=== PATIENT | female | born 1980 | race Caucasian/White ===

== ENCOUNTER 2023-09-17 15:03 | Outpatient (AMB) | payer OTHER, SELFPAY ==
--- NOTE | 2023-09-17 15:06 | MHC.PC.OV ---
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 Had just finished her prescribed antibiotics yesterday. Anxiety/Depression -Not currently taking any meds. -Does not currently have a therapist Diabetes PMHx: Depression/Anxiety, opiod abuse, Bipolar disorder SurgHx: FHx: SocHx: PFSH Medical History (Updated 09/17/23 @ 16:05 by Rik Shaikh) Depression Anxiety COPD (chronic obstructive pulmonary disease) Surgical History (Updated 09/17/23 @ 15:17 by Roxann Rain CMA) S/P hernia surgery H/O tubal ligation Family History (Updated 09/17/23 @ 15:21 by Roxann Rain CMA) Mother Asthma High blood pressure High cholesterol Diabetes Cervical cancer Cardiovascular disease Father Asthma High blood pressure High cholesterol Diabetes Alcoholism Cardiovascular disease Maternal Grandmother Asthma Alcoholism Cardiovascular disease Diabetes High cholesterol High blood pressure Social History Housing: House Patient Tobacco Use Status: Current everyday Tobacco user Cigarettes Per Day: 12 service: No Current occupational status: disabled Cognitive needs: No Hearing needs: No Vision needs: Yes (Patient wears glasses) Questionnaire PHQ-9 Over the last 2 weeks, how often have you been bothered by any of the following problems? 1. Little interest or pleasure in doing things: nearly every day 2. Feeling down, depressed, or hopeless: more than half the days 3. Trouble falling or staying asleep, or sleeping too much: nearly every day 4. Feeling tired or having little energy: nearly every day 5. Poor appetite or overeating: several days 6. Feeling bad about yourself - or that you are a failure or have let yourself or your family down: nearly every day 7. Trouble concentrating on things, such as reading the newspaper or watching television: nearly every day 8. Moving or speaking so slowly that other people could have noticed. Or the opposite - being so fidgety or restless that you have been moving around a lot more than usual: nearly every day 9. Thoughts that you would be better off or of hurting yourself in some way: not at all Total score: 21 Depression Screening Interpretation: Positive Depression Screening Done: Yes 73740 - PHQ-9 Billing: Yes Source: Developed by Drs. Jian Smith, Lucinda Del Rio, Rahul Leung and colleagues, with an educational ju from [employer]. Thrive Questionnaire Date Thrive assessed: 09/17/23 I am a: Patient What is your living situation today?: I have a steady place to live Within the past 12 months, did the food you bought not last and you didn't have the money to get more?: Never true Within the past 12 months, did you worry whether your food would run out before you got money to buy more?: Never true Do you have trouble paying for medicines?: No Do you have trouble getting transportation to medical appointments?: No Do you have trouble paying your heating and electricity bill?: No Do you have trouble taking care of your child, family member or friend?: No Do you have trouble with day-to-day activities such as bathing, preparing meals, shopping, managing finances, etc.?: Yes Are you currently unemployed and looking for a job?: No Are you interested in more education?: No THRIVE Score: 0 KRYSTA-7 AMB Questionnaire KRYSTA-7 Date KRYSTA - 7 assessed: 09/17/23 Feeling nervous, anxious, or on edge: 3 = Nearly every day Not being able to stop or control worryin = Nearly every day Worrying too much about different things: 3 = Nearly every day Trouble relaxin = Nearly every day Being so restless that it is hard to sit still: 3 = Nearly every day Becoming easily annoyed or irritable: 3 = Nearly every day Feeling afraid as if something awful might happen: 3 = Nearly every day Total KRYSTA-7 score (0-4 normal; 5-9 mild; 10-14 moderate; 15-21 severe): 21 Source: Developed by Drs. Jian Smith, Lucinda Del Rio, Rahul Leung and colleagues, with an educational ju from [employer]. KRYSTA-7 Assessment Billing KRYSTA-7 Assessment Tool: KRYSTA-7 Assessment 18242 Review of Systems Const Denies chills, Denies fatigue, Denies fever(s), Denies headache(s) and Denies weakness ENT Denies dizziness and Denies headache(s) Card Denies dyspnea Resp Denies cough, Denies dyspnea, Denies wheezing and Denies other (shortness of breath) Musc Denies numbness and Denies tingling Neuro Denies dizziness, Denies headache(s), Denies numbness, Denies tingling and Denies weakness Psych Denies anxiety and Denies depression Endo Denies fatigue Aller/Immun Denies wheezing Physical exam (Primary Care) Vital Signs: Last Vital Signs Pulse 96 09/17/23 15:09 BP 138/80 09/17/23 15:09 Pulse Ox 94 09/17/23 15:09 Oxygen Delivery Method Room Air 09/17/23 15:09 BMI result Body Mass Index 55.2 Tobacco/Smoking Status: Tobacco use Status Tobacco use date assessed 09/17/23 09/17/23 15:25 Patient Tobacco Use Status Current everyday Tobacco 09/17/23 15:25 PHQ-9: PHQ-9 Score PHQ-9: Total score 21 09/17/23 15:52 Depression Screening Interpretation: Positive Thrive Assessment: Date of Thrive Assessment Date Thrive assessed 09/17/23 09/17/23 15:25 Const General: well developed; No acute distress Nutritional Appearance: obese morbidly obese Orientation/consciousness: patient oriented x3 HENMT Head: Yes normocephalic and Yes atraumatic Eyes General: appearance normal, both eyes and all related structures Pupils: Equal, round and reactive pupils present EOM: EOMs intact bilaterally Resp Effort & Inspection: normal respiratory effort Skin Other: 3cm in diameter infected wound on the back of her R leg Neuro General: patient oriented x3 and gait normal Cranial nerves: Yes Equal, round and reactive pupils present Psych Affect: normal affect Results AMB Hemoglobin A1c AMB Hemoglobin A1c 9.6 % Last Edit by Roxann Rain CMA on 09/17/23 15:51 Results Reviewed Results Reviewed: Laboratory Last Values Hgb A1c (Clinic) 9.6 % (4.0-6.0) H 09/17/23 15:50 Assessment and Plan Assessment & Plan (1) Depression with anxiety: Code(s): F41.8 - Other specified anxiety disorders Plan: Anxiety?and?depression?in?patient?with?bipolar?disorder Will?start?Abilify?2?mg?daily Will?ask?the?nurse?navigator?to?help?connect?her?with?a?new?therapist Follow-up?in?1?month (2) Bipolar disorder: Code(s): F31.9 - Bipolar disorder, unspecified Plan: As?above,?moderately?severe?depression?and?anxiety?in?a?patient?with?bipolar?disorder Starting?Abilify She?had?had?a?therapist?and?I?am?asking?the?nurse?navigator?to?connect?her?with?another?therapist Should?also?have?a?psychiatrist (3) Diabetes: Code(s): E11.9 - Type 2 diabetes mellitus without complications Plan: A1c?9.6%.??Patient?has?not?had?a?diagnosis?of?diabetes?in?the?past?but?we?discussed?that?this?is?diabetes. Will?start?metformin Drink?plenty?of?water Will?ask?the?nurse?navigator?to?start?diabetic?teaching Will?follow-up?at?next?visit (4) Infected wound: Code(s): T14.8XXA - Other injury of unspecified body region, initial encounter; L08.9 - Local infection of the skin and subcutaneous tissue, unspecified Plan: Infected?wound?at?posterior?aspect?of?her?right?leg?with?poor?healing?likely?secondary?to?uncontrolled?diabetes Start?cephalexin?and?Bactrim?together Treat?diabetes She?will?let?me?know?if?not?improving?or?if?worsens?at?any?time-would?refer?to?wound?care (5) History of opioid abuse: Code(s): F11.11 - Opioid abuse, in remission Plan: She?is?on?Suboxone Stable (6) Laboratory exam ordered as part of routine general medical examination: Code(s): Z00.00 - Encounter for general adult medical examination without abnormal findings Plan: Check?labs Orders: Orders Comprehensive [place]. Panel Fast Today Z00.00 - Encounter for general adult medical examination without abnormal findings Lipid Panel Today Z00.00 - Encounter for general adult medical examination without abnormal findings Microalbumin, Random (w Creat) Today I10 - Essential (primary) hypertension TSH reflex Free T4 Today Z00.00 - Encounter for general adult medical examination without abnormal findings Complete Blood Count Auto Diff Today Z00.00 - Encounter for general adult medical examination without abnormal findings AMB Hemoglobin A1c Today Z13.9 - Encounter for screening, unspecified UA and rflx microscopic Today Z00.00 - Encounter for general adult medical examination without abnormal findings Referrals Nurse Navigator Referral E11.9 - Type 2 diabetes mellitus without complications, F31.9 - Bipolar disorder, unspecified, F41.8 - Other specified anxiety disorders Medications: New aripiprazole (Abilify) Take at 09:30pm 2 mg PO BEDTIME 30 days 30 tabs 2RF metformin 500 mg PO BID 30 days 60 tabs 3RF sulfamethoxazole-trimethoprim 800-160 mg (Bactrim DS) 1 tab PO Q12H 10 days 20 tabs 0RF cephalexin 500 mg PO Q12H 10 days 20 caps 0RF Coding Level of Care Code New Pt Level 3 (67107) Diagnoses Depression with anxiety F41.8 Bipolar disorder F31.9 Diabetes E11.9 Infected wound T14.8XXA; L08.9 History of opioid abuse F11.11 Laboratory exam ordered as part of routine general medical examination Z00.00 Additional Codes KRYSTA-7 Assessment Billing - KRYSTA-7 Assessment Tool: KRYSTA-7 Assessment [id number] ([id number])
[2023-09-17 15:09] VITALS: BP 138/80; PULSE 96; O2SAT 94; BMI 55.2
== END 2023-09-17 16:45 | disposition home or self-care (01) ==
PROVIDERS: PCP Family Medicine; Visit Provider Family Medicine
DX: E11.9 Type 2 diabetes mellitus without complications (principal); F31.9 Bipolar disorder, unspecified; F11.11 Opioid abuse, in remission; F41.8 Other specified anxiety disorders; T14.8XXA Other injury of unspecified body region, initial encounter; L08.9 Local infection of the skin and subcutaneous tissue, unspecified
CPT/HCPCS: 83036; 96127; 99203

== ENCOUNTER 2023-10-05 09:18 | Outpatient (REF) | payer OTHER, SELFPAY ==
[2023-10-05 11:49] LABS: Appearance Urine Clear; Color Urine Yellow; Glucose Urine UA 100 mg/dL (Negative); Leukocyte Esterase Urine Negative (Negative); Nitrite Urine Negative (Negative); PH 6.5 (5.0-9.0); Specific Gravity - Urine 1.025 (1.005-1.025); Urine Blood Negative (Negative); Urine Ketones Negative (Negative); Urine Protein Negative (Neg-Trace)
[2023-10-05 12:27] LABS: Microalbum/Creatinine Ratio Ur 6.9 ug/mg cr (<30)
== END 2023-10-05 09:19 | disposition home or self-care (01) ==
LOC: HO.WFDLDS 09:18
PROVIDERS: Visit Provider Family Medicine
DX: Z00.00 Encounter for general adult medical examination without abnormal findings (principal); I10 Essential (primary) hypertension
CPT/HCPCS: 81003; 82043; 82570

== ENCOUNTER 2023-10-08 09:02 | Outpatient (REF) | payer OTHER, SELFPAY ==
[2023-10-08 11:26] LABS: MANUAL DIFF FLAG NO
[2023-10-08 11:43] LABS: Basophils Absolute Auto 0.1 X10*3/uL (0.0-0.2); Basophils Percent Auto 0.5 % (0-2); Eosinophils Absolute Auto 0.4 X10*3/uL (0.0-0.4); Eosinophils Percent Auto 2.8 % (0-4); Hematocrit 47.5 % (37.0-47.0); Hemoglobin 15.6 g/dl (12.0-16.0); Imm Gran Abs Auto 0.09 X10*3/uL (0.00-0.03); Imm Gran Pct Auto 0.6 % (0.0-0.4); Lymphocytes Absolute Auto 3.7 X10*3/uL (1.2-4.9); Lymphocytes Percent Auto 24.2 % (20-40); Mean Corpuscular HGB Conc 32.8 g/dl (31.0-35.0); Mean Corpuscular Hemoglobin 30.1 pg (27.0-33.0); Mean Corpuscular Volume 91.7 fL (80.0-98.0); Mean Platelet Volume 10.4 fL (9.4-12.3); Monocytes Absolute Auto 0.9 X10*3/uL (0.1-1.2); Neutrophils Absolute Auto 9.9 x10*3/uL (2.0-8.3); Neutrophils Percent Auto 65.9 % (45-73); Platelet Count 321 X10*3/uL (160-400); Red Blood Count 5.18 X10*6/uL (4.20-5.50); Red Cell Distribution Width 14.6 % (11.0-16.0); White Blood Count 15.1 X10*3/uL (4.8-10.8)
[2023-10-08 12:50] LABS: Alanine Aminotransferase 42 U/L (0-31); Albumin Level 4.1 g/dL (3.5-5.0); Alkaline Phosphatase 96 U/L (39-117); Anion Gap 11 (12-20); Aspartate Amino Transferase 38 U/L (5-31); Bilirubin Total 0.4 mg/dL (0.0-1.0); Blood Urea Nitrogen 14 mg/dL (9-16); Calcium 9.2 mg/dL (8.4-10.2); Carbon Dioxide 26 mmol/L (22-29); Chloride 103 mmol/L (96-108); Cholesterol 113 mg/dL (<200); Estimated Glomerular Filt Rate > 60; Glucose Fasting 226 mg/dL (60-99); HDL Cholesterol 31 mg/dL (>40); LDL Cholesterol Calculated 65 mg/dL (<100); Potassium 4.3 mmol/L (3.3-5.1); Sodium 136 mmol/L (135-145); Total Protein 7.9 g/dL (6.5-8.0); Triglycerides 87 mg/dL (<150)
[2023-10-08 13:05] LABS: TSH reflex Free T4 2.59 uIU/mL (0.32-4.0)
== END 2023-10-08 09:03 | disposition home or self-care (01) ==
LOC: HO.WFDLDS 09:02
PROVIDERS: Visit Provider Family Medicine
DX: Z00.00 Encounter for general adult medical examination without abnormal findings (principal)
CPT/HCPCS: 36415; 80053; 80061; 84443; 85025

== ENCOUNTER 2023-10-21 13:58 | Outpatient (AMB) | payer OTHER, SELFPAY ==
[2023-10-21 14:06] VITALS: BP 136/82; PULSE 95; O2SAT 95; BMI 55.6
--- NOTE | 2023-10-21 14:06 | A.OFFPC_ITS ---
Vital Signs 10/21/23 14:06 Height 5 ft 2 in Weight 304 lb BMI 55.6 BP 136/82 Blood Pressure Location Lt brachial Position Sitting Pulse 95 Pulse Source Pulse Oximeter Pulse Oximetry (%) 95 Oxygen Delivery Method Room Air Intake Visit Reasons: Extended exam with f/u labs and health maint. Intake Note: Patient is here with right leg pain for 2 months.Patient is requesting another inhaler to help her breathe. Allergies No Known Allergies Allergy (Unverified 10/21/23 14:07) Tobacco use date assessed: 09/17/23 Dental Screening Dental Screen Date: 09/17/23 HPI Extended exam with f/u labs and health maint. HPI Details 42 y/o female presents for an extended e xam with f/u labs and health maintenance but she does not want to do a physical today. Labs were drawn 10/08/23. Reviewed labs with pt. Fasting glucose of 226. Last A1c 09/17/23 9.6%. Elevated liver enzymes - AST 38, ALT 42. Triglycerides 87. TC 113. LDL 65. HDL low at 31. Pt has ongoing complaints of an infection of back of R calf. Has been seen by wound care once but had been unable to get dressing due to insurance issues. She is on doxycycline but pt states infection getting worse. She has an appt. with wound care tomorrow. She is on Abilify 2mg. HPI Comments History of Present Illness Details Documentation assistance for Christopher Ramires MD, was provided by Rik Shaikh,? Rotary Operator on 10/21/2023 2:19 PM EST. I, Dr. Ramires, have read, observed, and verified documentation. [facility] Medical History Depression Anxiety COPD (chronic obstructive pulmonary disease) Surgical History S/P hernia surgery H/O tubal ligation Family History Mother Asthma High blood pressure High cholesterol Diabetes Cervical cancer Cardiovascular disease Father Asthma High blood pressure High cholesterol Diabetes Alcoholism Cardiovascular disease Maternal Grandmother Asthma Alcoholism Cardiovascular disease Diabetes High cholesterol High blood pressure Social History Housing: House Patient Tobacco Use Status: Current everyday Tobacco user Cigarettes Per Day: 12 service: No Current occupational status: disabled Cognitive needs: No Hearing needs: No Vision needs: Yes (Patient wears glasses) Questionnaire Thrive Questionnaire Date Thrive assessed: 09/17/23 KRYSTA-7 AMB Questionnaire KRYSTA-7 Date KRYSTA - 7 assessed: 09/17/23 Source: Developed by Drs. Jian Smith, Lucinda Del Rio, Rahul Leung and colleagues, with an educational ju from [employer]. Review of Systems Const Denies chills, Denies fever(s), Denies headache(s) and Denies weakness Eyes Denies change in vision ENT Denies dizziness, Denies headache(s), Denies hearing loss, Denies nasal congestion, Denies sinus pain, Denies sinus pressure and Denies sore throat Card Denies chest pain, Denies lightheadedness, Denies dyspnea and Denies other (palpitations) Resp Denies cough and Denies dyspnea GI Denies abdominal pain, Denies melena, Denies hematochezia, Denies change in bowel habits, Denies dyspepsia and Denies nausea Denies hematuria and Denies dysuria Skin/Breast Denies rash, Denies unusual bruising and Reports wounds (Infection of back of R calf ) Neuro Denies dizziness, Denies headache(s) and Denies weakness Physical exam (Primary Care) Vital Signs: Last Vital Signs Pulse 95 10/21/23 14:06 BP 136/82 10/21/23 14:06 Pulse Ox 95 10/21/23 14:06 Oxygen Delivery Method Room Air 10/21/23 14:06 BMI result Body Mass Index 55.6 Tobacco/Smoking Status: Tobacco use Status Tobacco use date assessed 09/17/23 10/21/23 14:10 Patient Tobacco Use Status Current everyday Tobacco 10/21/23 14:10 Thrive Assessment: Date of Thrive Assessment Date Thrive assessed 09/17/23 10/21/23 14:10 Const General: no acute distress and well developed Nutritional Appearance: well nourished Orientation/consciousness: patient oriented x3 HENMT Head: Yes normocephalic and Yes atraumatic Eyes General: appearance normal, both eyes and all related structures Pupils: Equal, round and reactive pupils present EOM: EOMs intact bilaterally Resp Effort & Inspection: normal respiratory effort Auscultation: clear to auscultation bilaterally Cardio Rate: regular rate Rhythm: regular rhythm Heart sounds: S1 normal heart sound present and S2 normal heart sound present Skin Other: infection of back of R calf Wounds: wound noted Neuro General: patient oriented x3 and gait normal Cranial nerves: Yes Equal, round and reactive pupils present Deep tendon reflexes (DTR's): Right patellar reflex intensity grade: 2+ and Left patellar reflex intensity grade: 2+ Psych Affect: normal affect Assessment and Plan Assessment & Plan (1) Infected wound: Code(s): T14.8XXA - Other injury of unspecified body region, initial encounter; L08.9 - Local infection of the skin and subcutaneous tissue, unspecified Plan: Ongoing?wound?infection?of?right?posterior?calf She?has?been?seen?by?wound?care?once?but?was?unable?to? get?the?recommended?dressings?due?to?insurance?issues. Her?antibiotic?was?switched?to?doxycycline?but?patient?notes?that?it?seems?to?be ?getting?worse?still. She?has?an?appointment?with?wound?care?manpreet rrow.??Advised?she?continue?doxycycline?and?follow-up?with?them Changed?her?dressing?today?and?she?will?discuss?alternative?dressings?tomorrow?w ith?wound?care. (2) Diabetes: Code(s): E11.9 - Type 2 diabetes mellitus without complications Plan: Patient?was?started?on?metformin?and?she?is?tolerating?metformin?500?mg?b.i.d.. Increasing?this?to?metformin?750?mg?b.i.d. Will?follow-up?at?next?visit (3) Low HDL (under 40): Code(s): E78.6 - Lipoprotein deficiency Plan: Encouraged?exercise?when?she?is?able?to?do?so. (4) Bipolar disorder: Code(s): F31.9 - Bipolar disorder, unspecified Plan: Patient?did?not?have?any?adverse?effects?from?Abilify?2?mg?daily?but?also?did?no t?notice?any?improvements. Advised?we?increase?her?dose?to?5?mg?daily?and?we?can?continue?titrating?up?unti l?it?is?helping?or?she?has?any?adverse?effects. Orders: Orders Comprehensive Met. Panel Today R74.8 - Abnormal levels of other serum enzymes Medications: New meloxicam 15 mg PO DAILY 30 days 30 tabs 2RF Changed From aripiprazole (Abilify) Take at 09:30pm 2 mg PO BEDTIME 30 days 30 tabs 2RF To aripiprazole Take at 09:30pm 5 mg PO BEDTIME 30 days 30 tabs 2RF From metformin 500 mg PO BID 30 days 60 tabs 3RF To metformin 750 mg (1.5 x 500 mg) PO BID 30 days 90 tabs 3RF Refilled albuterol sulfate 90 mcg/actuation (Ventolin HFA) 2 puffs inhalation Q4-6H 30 days PRN 8.5 grams 4RF shortness of breath or wheezing Coding Level of Care Code Est Pt Level 4 (35676) Diagnoses Infected wound T14.8XXA; L08.9 Diabetes E11.9 Low HDL (under 40) E78.6 Bipolar disorder F31.9
== END 2023-10-21 14:54 | disposition home or self-care (01) ==
PROVIDERS: PCP Family Medicine; Visit Provider Family Medicine
DX: E11.9 Type 2 diabetes mellitus without complications (principal); T14.8XXA Other injury of unspecified body region, initial encounter; F31.9 Bipolar disorder, unspecified; L08.9 Local infection of the skin and subcutaneous tissue, unspecified; E78.6 Lipoprotein deficiency
CPT/HCPCS: 99214

== ENCOUNTER 2023-12-03 08:55 | Outpatient (AMB) | payer OTHER, SELFPAY ==
--- NOTE | 2023-12-03 09:15 | A.OFFPC_ITS ---
Vital Signs 12/03/23 09:16 Height 5 ft 2 in Weight 308 lb 8 oz BMI 56.4 BP 144/80 H Blood Pressure Location Rt brachial Position Sitting Respiration 15 Pulse 83 Pulse Source Pulse Oximeter Temp 97.8 F Temp Source Temporal Artery Scan Pulse Oximetry (%) 96 Oxygen Delivery Method Room Air Intake Visit Reasons: Extended exam with f/u labs and health maint Intake Note: Patient states that her leg is her biggest concern rn and she doesn't currently feel good. 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 Accompanied by: Self / Same As Patient Allergies No Known Allergies Allergy (Verified 12/03/23 09:22) Medication List - Last Reconciled 12/03/23 by Christopher Ramires MD albuterol sulfate 90 mcg/actuation (Ventolin HFA) 2 puffs inhalation Q4-6H PRN 30 days aripiprazole 5 mg PO BEDTIME 30 days buprenorphine-naloxone 8-2 mg (Suboxone) 2 film buccal DAILY meloxicam 15 mg PO DAILY 30 days metformin 750 mg (1.5 x 500 mg) PO BID 30 days Tobacco use date assessed: 12/03/23 Dental Screening Dental Screen Date: 12/03/23 Did you have a dental visit in the last 12 months?: No Did you have a dental problem in the last 6 months where you did not have access to dental care?: No Was dental information given to patient?: Patient declined HPI Extended exam with f/u labs and health maint HPI Details Patient?presents?for?extended?exam Liver enzymes are elevated mildly HDL cholesterol is low although her other cholesterol levels are okay Not?feeling?well?today?and?leg?wound?is?swollen?and?weeping. ?[facility]and[facility]was?given?Bactrim.??Wound?still?appears?infected No?other?complaints?today ? [facility] Medical History (Updated 12/03/23 @ 10:02 by Christopher Ramires MD) Depression Anxiety COPD (chronic obstructive pulmonary disease) Surgical History (Updated 12/03/23 @ 09:24 by LOPEZ Mahoney) History of surgery on lower extremity S/P hernia surgery H/O tubal ligation Family History Mother Asthma High blood pressure High cholesterol Diabetes Cervical cancer Cardiovascular disease Father Asthma High blood pressure High cholesterol Diabetes Alcoholism Cardiovascular disease Maternal Grandmother Asthma Alcoholism Cardiovascular disease Diabetes High cholesterol High blood pressure Social History Housing: House Patient Tobacco Use Status: Current everyday Tobacco user Cigarettes Per Day: 12 Years Smoked: 28 e-Cigarette/Vaping Use: Never Used service: No Current occupational status: disabled Cognitive needs: No Hearing needs: No Vision needs: Yes (Patient wears glasses) Questionnaire PHQ-9 Over the last 2 weeks, how often have you been bothered by any of the following problems? 1. Little interest or pleasure in doing things: not at all 2. Feeling down, depressed, or hopeless: not at all 3. Trouble falling or staying asleep, or sleeping too much: not at all 4. Feeling tired or having little energy: not at all 5. Poor appetite or overeating: not at all 6. Feeling bad about yourself - or that you are a failure or have let yourself or your family down: not at all 7. Trouble concentrating on things, such as reading the newspaper or watching television: not at all 8. Moving or speaking so slowly that other people could have noticed. Or the opposite - being so fidgety or restless that you have been moving around a lot more than usual: not at all 9. Thoughts that you would be better off or of hurting yourself in some way: not at all Total score: 0 Depression Screening Interpretation: Negative Depression Screening Done: Yes 50184 - PHQ-9 Billing: Yes Source: Developed by Drs. Jian Smith, Lucinda Del Rio, Rahul Leung and colleagues, with an educational ju from [employer]. Thrive Questionnaire Date Thrive assessed: 12/03/23 I am a: Patient What is your living situation today?: I have a steady place to live Within the past 12 months, did the food you bought not last and you didn't have the money to get more?: Never true Within the past 12 months, did you worry whether your food would run out before you got money to buy more?: Never true Do you have trouble paying for medicines?: No Do you have trouble getting transportation to medical appointments?: No Do you have trouble paying your heating and electricity bill?: No Do you have trouble taking care of your child, family member or friend?: No Do you have trouble with day-to-day activities such as bathing, preparing meals, shopping, managing finances, etc.?: Yes Are you currently unemployed and looking for a job?: No Are you interested in more education?: No Please select the resources that you would like help with: Daily support and None Currently or been in a relationship where the following occur: no concerns reported THRIVE Score: 0 AUDIT C Alcohol Use Questionnaire (AUDIT-C) 1. How often do you have a drink containing alcohol?: Monthly or less 2. How many drinks containing alcohol do you have on a typical day when you are drinking?: 1 or 2 3. How often do you have six or more drinks on one occasion?: Never Total Score: 1 KRYSTA-7 AMB Questionnaire KRYSTA-7 Date KRYSTA - 7 assessed: 12/03/23 Feeling nervous, anxious, or on edge: 0 = Not at all Not being able to stop or control worryin = Not at all Worrying too much about different things: 0 = Not at all Trouble relaxin = Not at all Being so restless that it is hard to sit still: 0 = Not at all Becoming easily annoyed or irritable: 0 = Not at all Feeling afraid as if something awful might happen: 0 = Not at all Total KRYSTA-7 score (0-4 normal; 5-9 mild; 10-14 moderate; 15-21 severe): 0 Source: Developed by Drs. Jian Smith, Lucinda Del Rio, Rahul Leung and colleagues, with an educational ju from [employer]. KRYSTA-7 Assessment Billing KRYSTA-7 Assessment Tool: KRYSTA-7 Assessment 32323 Review of Systems Const Details: Review of Systems Const Denies?chills,?Denies?fatigue,?Denies?fever(s),?Denies?headache(s) a nd?Denies?weakness Eyes Denies?change in vision ENT Denies?dizziness,?Denies?headache(s),?Denies?hearing loss,?Denies?nasal congestion,?Denies?sinus pain,?Denies?sinus pressure and?Denies?sore throat Card Denies?chest pain,?Denies?lightheadedness,?Denies?dyspnea and?Denies?other (palpitations) Resp Denies?cough,?Denies?dyspnea and?Denies?wheezing GI Denies?abdominal pain,?Denies?melena,?Denies?hematochezia,?Denies?change in bowel habits,?Denies?dyspepsia and?Denies?nausea Denies?hematuria and?Denies?dysuria Musc Denies?abnormal gait,?Denies?myalgias,?Denies?arthralgias,?Denies?numbness and?Denies?tingling Skin/Breast Wound?at?right?lower?leg?with?swelling,?erythema?and?tenderness Neuro Denies?abnormal gait,?Denies?dizziness,?Denies?headache(s),?Denies?memory los s,?Denies?numbness,?Denies?Sensory deficit (Neuro),?Denies?tingling and?Denies?weakness Psych Denies?anxiety,?Denies?depression and?Denies?memory loss Endo Denies?cold intolerance,?Denies?fatigue,?Denies?heat intolerance,?Denies?polydipsia and?Denies?polyuria Otoniel/Lymph Bilateral?lower?extremity?edema 2+?edema?bilaterally Aller/Immun Denies?wheezing Physical exam (Primary Care) Vital Signs: Last Vital Signs Temp 97.8 F 12/03/23 09:16 Pulse 83 12/03/23 09:16 Resp 15 12/03/23 09:16 BP 144/80 H 12/03/23 09:16 Pulse Ox 96 12/03/23 09:16 Oxygen Delivery Method Room Air 12/03/23 09:16 BMI result Body Mass Index 56.4 Tobacco/Smoking Status: Tobacco use Status Tobacco use date assessed 12/03/23 12/03/23 09:26 Patient Tobacco Use Status Current everyday Tobacco 12/03/23 09:15 e-Cigarette/Vaping Use Never Used 12/03/23 09:26 PHQ-9: PHQ-9 Score PHQ-9: Total score 0 12/03/23 09:26 Depression Screening Interpretation: Negative Thrive Assessment: Date of Thrive Assessment Date Thrive assessed 12/03/23 12/03/23 09:26 Currently or been in a relationship where the following occur: no concerns reported Const Other: Physical Exam Const General:?no acute distress, well developed, alert and awake Nutritional Appearance:?well nourished Orientation/consciousness:?patient oriented x3 [facility] Head:?Yes?normocephalic and?Yes?atraumatic Ears:?hearing grossly normal bilaterally and TM's normal bilaterally General nose exam:?Normal external nose present and Normal nares present Mouth:?Normal oral and palatal mucosa present and moist mucous membranes Teeth and gingiva:?dentition normal Throat:?Yes?posterior oropharynx normal Eyes Pupils:?Equal, round and reactive pupils present and Pupil accommodation reflex normal EOM:?EOMs intact bilaterally Neck Neck:?Yes?normal visual inspection,?Yes?no lymphadenopathy and?Yes?trachea midline Thyroid:?Thyroid normal Carotids:?no bruits Lymphatic:?no lymphadenopathy noted Chest Chest palpation & inspection:?normal inspection of the chest Resp Effort & Inspection:?normal respiratory effort Auscultation:?clear to auscultation bilaterally Cardio Rate:?regular rate Rhythm:?regular rhythm Heart sounds:?S1 normal heart sound present, S2 normal heart sound present, no gallops, no murmurs and no rubs Bruits:?no abdominal aortic bruits and no carotid bruits GI Palpation (GI):?No?Abdominal aortic bruit present, Soft to palpation, nontender, No hepatosplenomegaly present and?No?Rebound tenderness present Auscultation:?normal bowel sounds General:?Yes?no CVA tenderness Back/Spine/Pelvis Back:?no CVA tenderness Cervical Spine:?cervical ROM normal and?No?Cervical spine tenderness Thoracic/Lumbar Spine:?thoraco-lumbar ROM normal,?No?pain with thoraco-lumbar ROM,?No?thoracic spinal tenderness and?No?lumbar spinal tenderness Skin Lesions:?no lesions Rashes:?no rashes Trauma:?no lacerations or abrasions Wounds:?no wounds Nails:?normal Neuro General:?patient oriented x3, gait normal and CN's II-XI intact bilaterally Cranial nerves:?Yes?Equal, round and reactive pupils present Cognition (Neuro):?normal cognition Gait exam (Neuro):?Normal gait present Motor exam (neuro):?5/5 motor strength present throughout Sensory Exam:?No?Sensory deficit (Neuro) Deep tendon reflexes (DTR's):?Right patellar reflex intensity grade:?2+ and?Left patellar reflex intensity grade:?2+ Extrem 2+?edema?bilaterally?but?additional?swelling?around?wound?at?right?lower?leg?wit h?erythema?and?tenderness?and?weeping Psych Appearance:?grossly normal Affect:?normal affect Attitude:?cooperative Thought process:?Normal thought process present Assessment and Plan Assessment & Plan (1) Diabetes: Code(s): E11.9 - Type 2 diabetes mellitus without complications Plan: A1c: 9.6% again. Goal is < 7% Will add Ozempic Close?follow-up?in?1?month She?will?let?me?know?if?she?has?any?trouble?getting?this?medication.??Could?try? Trulicity. (2) Infected wound: Code(s): T14.8XXA - Other injury of unspecified body region, initial encounter; L08.9 - Local infection of the skin and subcutaneous tissue, unspecified Plan: Ongoing?infected?wound?at?right?lower?leg.??Surrounding?cellulitis?and?patient?i s?diabetic. Also?has?significant?lower?extremity?edema Finished?Bactrim?and?I ?am?changing?this?to?doxycycline.??I?am?referring?her?to?[facility]?wound?care?as?s he?does?not?want?to?go?back?to?[facility]. Elevate?legs.??I?am?going?to?give?her?some?Lasix?for?a?week?to?get?the?edema?polly n (3) Elevated liver enzymes: Code(s): R74.8 - Abnormal levels of other serum enzymes Plan: Encouraged?weight?loss Will?recheck?prior?to?next?visit (4) Low HDL (under 40): Code(s): E78.6 - Lipoprotein deficiency Plan: Encouraged?exercise?as?tolerated (5) Screening for cervical cancer: Code(s): Z12.4 - Encounter for screening for malignant neoplasm of cervix Plan: Referred?to?director of claims Overdue?for?Pap?smear (6) Breast cancer screening by mammogram: Code(s): Z12.31 - Encounter for screening mammogram for malignant neoplasm of breast (7) Bipolar disorder: Code(s): F31.9 - Bipolar disorder, unspecified Plan: Currently?stable?on?Abilify.??Continue?current?medications (8) Adult general medical exam: Code(s): Z00.00 - Encounter for general adult medical examination without abnormal findings Plan: Encouraged?healthy?diet?and?active?lifestyle Plan Due?for?mammogram Ordered Orders: Orders MM tomosynthesis screening BI Today Z12 - Encounter for screening mammogram for malignant neoplasm of breast Comprehensive [facility]. Panel Fast Today Z00.00 - Encounter for general adult medical examination without abnormal findings Referrals Wound Care Referral L08.9 - Local infection of the skin and subcutaneous tissue, unspecified, T14.8XXA - Other injury of unspecified body region, initial encounter SITE ACQUISITION MANAGER Referral Z12.4 - Encounter for screening for malignant neoplasm of cervix Medications: New furosemide 20 mg PO QAM 10 days 10 tabs 0RF semaglutide (Ozempic) for 4 weeks 0.25 mg (0.368 mL) subcut QWEEK 28 days 1.472 mL 3RF doxycycline hyclate 100 mg PO BID 10 days 20 tabs 0RF L08.9 - Local infection of the skin and subcutaneous tissue, unspecified, T14.8XXA - Other injury of unspecified body region, initial encounter Refilled meloxicam 15 mg PO DAILY 30 days 30 tabs 2RF L08.9 - Local infection of the skin and subcutaneous tissue, unspecified, T14.8XXA - Other injury of unspecified body region, initial encounter Coding Level of Care Code Est Pt Level 4 (62189) Diagnoses Diabetes E11.9 Infected wound T14.8XXA; L08.9 Elevated liver enzymes R74.8 Low HDL (under 40) E78.6 Screening for cervical cancer Z12.4 Breast cancer screening by mammogram Z12. Bipolar disorder F31.9 Adult general medical exam Z00.00 Additional Codes KRYSTA-7 Assessment Billing - KRYSTA-7 Assessment Tool: KRYSTA-7 Assessment [id number] ([id number])
[2023-12-03 09:16] VITALS: BP 144/80; PULSE 83; RESP 15; TEMP 36.6; O2SAT 96; BMI 56.4
== END 2023-12-03 10:17 | disposition home or self-care (01) ==
PROVIDERS: PCP Family Medicine; Visit Provider Family Medicine
DX: Z00.00 Encounter for general adult medical examination without abnormal findings (principal); E11.9 Type 2 diabetes mellitus without complications; T14.8XXA Other injury of unspecified body region, initial encounter; F31.9 Bipolar disorder, unspecified; L08.9 Local infection of the skin and subcutaneous tissue, unspecified; R74.8 Abnormal levels of other serum enzymes; E78.6 Lipoprotein deficiency; Z12.31 Encounter for screening mammogram for malignant neoplasm of breast
CPT/HCPCS: 83036; 99214; 99396

== ENCOUNTER 2024-01-08 10:57 | Outpatient (AMB) | payer OTHER, SELFPAY ==
--- NOTE | 2024-01-08 11:13 | MHC.OFFVIS ---
Intake Visit Reasons: follow up labs Intake Note: Jennifer is a 43 year old female who presents to the office today for a follow up labs. Pt didnt get her labwork done yet but states Allergies No Known Allergies Allergy (Verified 12/03/23 09:22) [facility], [facility] Medical History (Updated 12/03/23 @ 10:02 by Christopher Ramires MD) Depression Anxiety COPD (chronic obstructive pulmonary disease) Surgical History (Updated 12/03/23 @ 09:24 by LOPEZ Mahoney) History of surgery on lower extremity S/P hernia surgery H/O tubal ligation Family History Mother Asthma High blood pressure High cholesterol Diabetes Cervical cancer Cardiovascular disease Father Asthma High blood pressure High cholesterol Diabetes Alcoholism Cardiovascular disease Maternal Grandmother Asthma Alcoholism Cardiovascular disease Diabetes High cholesterol High blood pressure Social History Housing: House Patient Tobacco Use Status: Current everyday Tobacco user Cigarettes Per Day: 12 Years Smoked: 28 e-Cigarette/Vaping Use: Never Used service: No Current occupational status: disabled Cognitive needs: No Hearing needs: No Vision needs: Yes (Patient wears glasses) Coding
--- NOTE | 2024-01-08 11:16 | A.OFFPC_ITS ---
Vital Signs 01/08/24 11:17 Height 5 ft 2 in Weight 302 lb 8 oz BMI 55.3 BP 132/88 Blood Pressure Location Lt brachial Position Sitting Pulse 86 Pulse Source Pulse Oximeter Pulse Oximetry (%) 94 Oxygen Delivery Method Room Air Intake Visit Reasons: follow up labs Allergies No Known Allergies Allergy (Verified 01/08/24 11:16) Tobacco use date assessed: 12/03/23 Dental Screening Dental Screen Date: 12/03/23 HPI follow up labs HPI Details 43 y/o female presents to f/u chronic co nditions. No recent labs to review. Pt reports ongoing pain from cellulitis. Pt is taking ibuprofen, meloxicam for relief. She states she has not been able to get her ozempic yet for her diabetes. She is currently only on metformin. [facility] Medical History Depression Anxiety COPD (chronic obstructive pulmonary disease) Surgical History History of surgery on lower extremity S/P hernia surgery H/O tubal ligation Family History Mother Asthma High blood pressure High cholesterol Diabetes Cervical cancer Cardiovascular disease Father Asthma High blood pressure High cholesterol Diabetes Alcoholism Cardiovascular disease Maternal Grandmother Asthma Alcoholism Cardiovascular disease Diabetes High cholesterol High blood pressure Social History Housing: House Patient Tobacco Use Status: Current everyday Tobacco user Cigarettes Per Day: 12 Years Smoked: 28 e-Cigarette/Vaping Use: Never Used service: No Current occupational status: disabled Cognitive needs: No Hearing needs: No Vision needs: Yes (Patient wears glasses) Questionnaire PHQ-9 Over the last 2 weeks, how often have you been bothered by any of the following problems? 1. Little interest or pleasure in doing things: not at all 2. Feeling down, depressed, or hopeless: not at all 3. Trouble falling or staying asleep, or sleeping too much: not at all 4. Feeling tired or having little energy: not at all 5. Poor appetite or overeating: not at all 6. Feeling bad about yourself - or that you are a failure or have let yourself or your family down: not at all 7. Trouble concentrating on things, such as reading the newspaper or watching television: not at all 8. Moving or speaking so slowly that other people could have noticed. Or the opposite - being so fidgety or restless that you have been moving around a lot more than usual: not at all 9. Thoughts that you would be better off or of hurting yourself in some way: not at all Total score: 0 Depression Screening Interpretation: Negative Depression Screening Done: Yes 54542 - PHQ-9 Billing: Yes Source: Developed by Drs. Jian Smith, Lucinda Del Rio, Rahul Leung and colleagues, with an educational ju from [email or web address]. Thrive Questionnaire Date Thrive assessed: 12/03/23 I am a: Patient What is your living situation today?: I have a steady place to live Within the past 12 months, did the food you bought not last and you didn't have the money to get more?: Never true Within the past 12 months, did you worry whether your food would run out before you got money to buy more?: Never true Do you have trouble paying for medicines?: No Do you have trouble getting transportation to medical appointments?: No Do you have trouble paying your heating and electricity bill?: No Do you have trouble taking care of your child, family member or friend?: No Do you have trouble with day-to-day activities such as bathing, preparing meals, shopping, managing finances, etc.?: Yes Are you currently unemployed and looking for a job?: No Are you interested in more education?: No Please select the resources that you would like help with: Daily support and None THRIVE Score: 0 KRYSTA-7 AMB Questionnaire KRYSTA-7 Date KRYSTA - 7 assessed: 12/03/23 Feeling nervous, anxious, or on edge: 0 = Not at all Not being able to stop or control worryin = Not at all Worrying too much about different things: 0 = Not at all Trouble relaxin = Not at all Being so restless that it is hard to sit still: 0 = Not at all Becoming easily annoyed or irritable: 0 = Not at all Feeling afraid as if something awful might happen: 0 = Not at all Total KRYSTA-7 score (0-4 normal; 5-9 mild; 10-14 moderate; 15-21 severe): 0 Source: Developed by Drs. Jian Smith, Lucinda Del Rio, Rahul Leung and colleagues, with an educational ju from [email or web address]. KRYSTA-7 Assessment Billing KRYSTA-7 Assessment Tool: KRYSTA-7 Assessment 74577 Review of Systems Const Denies chills, Denies fatigue, Denies fever(s), Denies headache(s) and Denies weakness ENT Denies dizziness and Denies headache(s) Card Denies dyspnea Resp Denies cough, Denies dyspnea, Denies wheezing and Denies other (shortness of breath) Musc Denies numbness and Denies tingling Neuro Denies dizziness, Denies headache(s), Denies numbness, Denies tingling and Denies weakness Psych Denies anxiety and Denies depression Endo Denies fatigue Aller/Immun Denies wheezing Physical exam (Primary Care) Vital Signs: Last Vital Signs Pulse 86 01/08/24 11:17 BP 132/88 01/08/24 11:17 Pulse Ox 94 01/08/24 11:17 Oxygen Delivery Method Room Air 01/08/24 11:17 BMI result Body Mass Index 55.3 Tobacco/Smoking Status: Tobacco use Status Tobacco use date assessed 12/03/23 01/08/24 11:32 Patient Tobacco Use Status Current everyday Tobacco 01/08/24 11:32 e-Cigarette/Vaping Use Never Used 01/08/24 11:32 PHQ-9: PHQ-9 Score PHQ-9: Total score 0 01/08/24 11:32 Depression Screening Interpretation: Negative Thrive Assessment: Date of Thrive Assessment Date Thrive assessed 12/03/23 01/08/24 11:32 Const General: well developed; No acute distress Nutritional Appearance: obese morbidly obese Orientation/consciousness: patient oriented x3 HENMT Head: Yes normocephalic and Yes atraumatic Eyes General: appearance normal, both eyes and all related structures Pupils: Equal, round and reactive pupils present EOM: EOMs intact bilaterally Resp Effort & Inspection: normal respiratory effort Neuro General: patient oriented x3 and gait normal Cranial nerves: Yes Equal, round and reactive pupils present Psych Affect: normal affect Assessment and Plan Assessment & Plan (1) Cellulitis: Code(s): L03.90 - Cellulitis, unspecified Plan: Improving?on?vancomycin?and?piperacillin?IV Continue?IV?medications Follow-up?with?wound?care?as?recommended Patient?can?take?meloxicam?or?ibuprofen?but?not?both I?will?increase?her?gabapentin?to?300?mg?3?times?a?day Referring?her?to?pain?management?to?help?with?other?modes?of?pain?control Can?use?Tylenol?sparingly-once?per?day (2) History of opioid abuse: Code(s): 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 She?has?been?on?Suboxone?in?the?past?though?she?has?not?been?on?this?for?a?week She?will?need?to?consider?whether?she?wants?to?continue?that?medication?or?disco ntinue?it?at?this?point. Recommended?she?avoid?any?other?opioids?at?this?time (3) Diabetes: Code(s): E11.9 - Type 2 diabetes mellitus without complications Plan: A1c?was?high?at?last?visit.??Had?prescribed? Ozempic?but?she?was?not?able?to?get?the Will?try?sending?a?script?for?Wegovy.??She?will?continue?metformin?and?I?am?givi ng?her?a?script?for?glipizide?as?well. Asking?the?nurse?navigator?to?help?get?her?a?continuous?glucose?monitor. 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, in remission, L03.90 - Cellulitis, unspecified, M79.604 - Pain in right leg Nurse Navigator Referral E11.9 - Type 2 diabetes mellitus without complications Medications: New semaglutide (weight loss) (Wegovy) administer weeks 1 through 4 of therapy 0.25 mg (0.5 mL) subcut QWEEK 28 days 2 mL 3RF glipizide ER 5 mg PO QAM 30 days 30 tabs 3RF gabapentin 300 mg PO TID 30 days 90 caps 1RF Refilled meloxicam 15 mg PO DAILY 30 days 30 tabs 2RF L08.9 - Local infection of the skin and subcutaneous tissue, unspecified, T14.8XXA - Other injury of unspec ified body region, initial encounter Coding Level of Care Code Est Pt Level 4 (11511) Diagnoses Cellulitis L03.90 History of opioid abuse F11.11 Diabetes E11.9 Additional Codes KRYSTA-7 Assessment Billing - KRYSTA-7 Assessment Tool: KRYSTA-7 Assessment [id number] ([id number])
[2024-01-08 11:17] VITALS: BP 132/88; PULSE 86; O2SAT 94; BMI 55.3
== END 2024-01-08 12:03 | disposition home or self-care (01) ==
PROVIDERS: PCP Family Medicine; Visit Provider Family Medicine
DX: L03.90 Cellulitis, unspecified (principal); F11.11 Opioid abuse, in remission; E11.9 Type 2 diabetes mellitus without complications
CPT/HCPCS: 99214

== ENCOUNTER 2024-01-25 08:58 | Outpatient (REF) | payer OTHER, SELFPAY ==
[2024-01-25 11:34] LABS: Alanine Aminotransferase 39 U/L (0-31); Albumin Level 3.9 g/dL (3.5-5.0); Alkaline Phosphatase 107 U/L (39-117); Anion Gap 17 (12-20); Aspartate Amino Transferase 37 U/L (5-31); Bilirubin Total 0.4 mg/dL (0.0-1.0); Blood Urea Nitrogen 15 mg/dL (9-16); Calcium 9.3 mg/dL (8.4-10.2); Carbon Dioxide 24 mmol/L (22-29); Chloride 101 mmol/L (96-108); Estimated Glomerular Filt Rate > 60; Glucose Fasting 223 mg/dL (60-99); Glucose Random 222 mg/dL (60-115); Sodium 138 mmol/L (135-145); Total Protein 7.5 g/dL (6.5-8.0)
== END 2024-01-25 08:59 | disposition home or self-care (01) ==
LOC: HO.WFDLDS 08:58
PROVIDERS: Visit Provider Family Medicine
DX: Z00.00 Encounter for general adult medical examination without abnormal findings (principal); R74.8 Abnormal levels of other serum enzymes
CPT/HCPCS: 36415; 80053

== ENCOUNTER 2024-01-29 14:28 | Outpatient (AMB) | payer OTHER, SELFPAY ==
--- NOTE | 2024-01-29 14:48 | A.OFFPC_ITS ---
Vital Signs 01/29/24 14:50 Height 5 ft 2 in Weight 300 lb 6 oz BMI 54.9 BP 110/60 Position Sitting Respiration 18 Pulse 92 Pulse Source Pulse Oximeter Temp 98 F Temp Source Tympanic Pulse Oximetry (%) 95 Oxygen Delivery Method Room Air Intake Visit Reasons: follow up blood sugar Intake Note: f/u for blood sugar Allergies No Known Allergies Allergy (Verified 01/29/24 14:49) Tobacco use date assessed: 12/03/23 Dental Screening Dental Screen Date: 12/03/23 HPI follow up blood sugar HPI Details 43 y/o female presents to f/u chronic co nditions. Saw?patient?in?November?and?had?advised?she?return?in?1?month?to?follow-up?right?low er?extremity?infected?wound?and?cellulitis, diabetes?and?elevated?liver?enzymes. Gave?patient?a?script?for?doxy?(she?finished?a?script?for?Bactrim?by?the?ED)?and ?referred?her?to?[facility]?wound?care?as?she?did?not?want?to?go?back?to?[facility]. Lower?extremity?edema?so?gave?her?some?furosemide?and?advised?elevation?as?well A1c?was?9.6%?and?I?am?adding?Ozempic?to?her?metformin.??She?will?let?me?know?if? she?is?unable?to?get?the?medication Liver?enzymes?in?this?month?at?decreased?slightly?from?prior A1c?today?8.6% Pt states she is no longer on antibiotics. She reports ongoing LE swelling/pain. HPI Comments History of Present Illness Details Documentation assistance for Christopher Ramires MD, was provided by Rik Shaikh,? Lamina Searcher on 01/29/2024 at 3:04 PM EST. I, Dr. Ramires, have read, observed, and verified documentation. [facility] Medical History Depression Anxiety COPD (chronic obstructive pulmonary disease) Surgical History History of surgery on lower extremity S/P hernia surgery H/O tubal ligation Family History Mother Asthma High blood pressure High cholesterol Diabetes Cervical cancer Cardiovascular disease Father Asthma High blood pressure High cholesterol Diabetes Alcoholism Cardiovascular disease Maternal Grandmother Asthma Alcoholism Cardiovascular disease Diabetes High cholesterol High blood pressure Social History Housing: House Patient Tobacco Use Status: Current everyday Tobacco user Cigarettes Per Day: 12 Years Smoked: 28 e-Cigarette/Vaping Use: Never Used service: No Current occupational status: disabled Cognitive needs: No Hearing needs: No Vision needs: Yes (Patient wears glasses) Questionnaire Thrive Questionnaire Date Thrive assessed: 12/03/23 KRYSTA-7 AMB Questionnaire KRYSTA-7 Date KRYSTA - 7 assessed: 12/03/23 Source: Developed by Drs. Jian Smith, Lucinda Del Rio, Rahul Leung and colleagues, with an educational ju from [employer]. Review of Systems Const Denies chills, Denies fatigue, Denies fever(s), Denies headache(s) and Denies weakness ENT Denies dizziness and Denies headache(s) Card Denies dyspnea Resp Denies cough, Denies dyspnea, Denies wheezing and Denies other (shortness of breath) Musc Denies numbness and Denies tingling Neuro Denies dizziness, Denies headache(s), Denies numbness, Denies tingling and Denies weakness Psych Denies anxiety and Denies depression Endo Denies fatigue Aller/Immun Denies wheezing Physical exam (Primary Care) Vital Signs: Last Vital Signs Temp 98 F 01/29/24 14:50 Pulse 92 01/29/24 14:50 Resp 18 01/29/24 14:50 BP 110/60 01/29/24 14:50 Pulse Ox 95 01/29/24 14:50 Oxygen Delivery Method Room Air 01/29/24 14:50 BMI result Body Mass Index 54.9 Tobacco/Smoking Status: Tobacco use Status Tobacco use date assessed 12/03/23 01/29/24 14:50 Patient Tobacco Use Status Current everyday Tobacco 01/29/24 14:50 e-Cigarette/Vaping Use Never Used 01/29/24 14:50 Thrive Assessment: Date of Thrive Assessment Date Thrive assessed 12/03/23 01/29/24 14:50 Const General: well developed; No acute distress Nutritional Appearance: well nourished Orientation/consciousness: patient oriented x3 [facility] Head: Yes normocephalic and Yes atraumatic Eyes General: appearance normal, both eyes and all related structures Pupils: Equal, round and reactive pupils present EOM: EOMs intact bilaterally Resp Effort & Inspection: normal respiratory effort Auscultation: clear to auscultation bilaterally Cardio Rate: regular rate Rhythm: regular rhythm Heart sounds: S1 normal heart sound present, S2 normal heart sound present, no gallops, no murmurs and no rubs Neuro General: patient oriented x3 and gait normal Cranial nerves: Yes Equal, round and reactive pupils present Psych Affect: normal affect Assessment and Plan Assessment & Plan (1) Diabetes: Code(s): E11.9 - Type 2 diabetes mellitus without complications Plan: A1c?has?improved?from?9.6%?to?8.6%.??Goal?is?less?than?7.0% She?has?been?unable?to?get?Ozempic?or?Wegovy Taking?metformin?and?glipizide?as?prescribed Will?increase?her?glipizide?to?10?mg?daily Continue?to?work?at?a?diet?low?in?sugars?and?starches Will?ask?the?nurse?navigator?to?help?with?diabetic?teaching?and to?see?if?we?can?get?her?CGM (2) Lower extremity edema: Code(s): R60.0 - Localized edema Plan: Ongoing?lower?extremity?edema.??Most?likely?secondary?to?venous?insufficiency Will?have?her?take?furosemide?10?mg?daily Avoid?salt/sodium Elevate?legs (3) Elevated liver enzymes: Code(s): R74.8 - Abnormal levels of other serum enzymes Plan: Liver?enzymes?are?declining?slowly Encouraged?weight?loss Will?continue?to?follow (4) Cellulitis: Code(s): L03.90 - Cellulitis, unspecified Plan: Cellulitis?and?open?wound?of?skin?at?right?calf Patient?received?antibiotics?and?has?an?appointment?with?wound?care?on?Thursday Keep?covered Follow-up?with?wound?care?as?recommended Continue?to?work?on?the?underlying?causes?as?listed?above;?diabetes?and?lower?ex tremity?edema (5) Right leg pain: Code(s): M79.604 - Pain in right leg Plan: This?should?improve?with?reduction?in?lower?extremity?edema?and?resolution?of?he r?infection?and?open?wound. Medications: Changed From glipizide ER 5 mg PO QAM 30 days 30 tabs 3RF To glipizide ER 10 mg PO QAM 30 days 30 tabs 3RF From furosemide 20 mg PO QAM 10 days 10 tabs 0RF To furosemide 10 mg (1/2 x 20 mg) PO QAM 30 days 15 tabs 2RF Discontinued semaglutide (Ozempic) for 4 weeks Discontinued Reason: Doctor's Order 0.25 mg (0.368 mL) subcut QWEEK 28 days 1.472 mL 3RF semaglutide (weight loss) (Wegovy) administer weeks 1 through 4 of therapy Discontinued Reason: Doctor's Order 0.25 mg (0.5 mL) subcut QWEEK 28 days 2 mL 3RF Coding Level of Care Code Est Pt Level 4 (41220) Diagnoses Diabetes E11.9 Lower extremity edema R60.0 Elevated liver enzymes R74.8 Cellulitis L03.90 Right leg pain M79.604
[2024-01-29 14:50] VITALS: BP 110/60; PULSE 92; RESP 18; TEMP 36.6; O2SAT 95; BMI 54.9
== END 2024-01-29 15:23 | disposition home or self-care (01) ==
PROVIDERS: PCP Family Medicine; Visit Provider Family Medicine
DX: E11.9 Type 2 diabetes mellitus without complications (principal); R60.0 Localized edema; R74.8 Abnormal levels of other serum enzymes; L03.90 Cellulitis, unspecified; M79.604 Pain in right leg
CPT/HCPCS: 99214

== ENCOUNTER 2024-02-25 09:28 | Outpatient (AMB) | payer OTHER, SELFPAY ==
--- NOTE | 2024-02-25 09:30 | A.OFFVIS_ITS ---
Vital Signs 02/25/24 09:38 Height 5 ft 2 in BMI Reason not done Patient refused/unable BP 140/90 H Blood Pressure Location Rt brachial Position Sitting Pulse 110 H Pulse Source Pulse Oximeter Intake Visit Reasons: DM/CONFRIMED Intake Note: NEW Patient presents today to establish treatment for Type 2 Diabetes Mellitus: Last Diabetic eye exam was on: DUE Last Podiatry exam was on: Does not see a Soap Mixer Most recent HbA1c: 9.6%, 12/03/2023 Random Glucose- 266 mg/dL, Today [facility] Required: No Accompanied by: Self / Same As Patient Allergies No Known Allergies Allergy (Verified 02/25/24 09:37) HPI Comments Details: The patient is a 43 year old female with a past medical history of type 2 diabetes presenting for consultation Medical history: Right lower extremity wound, h/o opioid dependence, bipolar disorder Did not bring glucometer-says she has not had one & has not been checking gl ucose Current medications: Metformin 750mg twice daily. Glipizide 10mg daily. Reports not missing any doses. Last A1C 9.6%, almost due for repeat Did not bring glucometer-says she has not had one & has not been checking glucose Denies symptoms of hypoglycemia Micro/macrovascular complications: Right lower extremity wound with delayed healing-following with wound care-[place] every thursday. started two days ago on abx-doxycycline. +pain, missed pain management referral calls. Pain today 02/22. She stopped ibuprofen as she was getting stomach upset and heartburn. She is off suboxone, doing ok Family history of type 2 diabetes ROS see HPI PHYSICAL EXAM: GENERAL: Alert and oriented x 3. NAD EYES: EOMI. Anicteric. HENT: Moist mucous membranes. LUNGS: Clear to auscultation bilaterally. CARDIOVASCULAR: Regular rate and rhythm. ABDOMEN: Soft, non-tender +bs EXTREMITIES: Right lower extremity is bandaged, no purulence SKIN: No rashes or lesions. Warm. NEUROLOGIC: No focal neurological deficits. CN II-XII grossly intact PSYCHIATRIC: Cooperative. Teary, in pain [facility] Medical History Depression Anxiety COPD (chronic obstructive pulmonary disease) Surgical History History of surgery on lower extremity S/P hernia surgery H/O tubal ligation Family History Mother Asthma High blood pressure High cholesterol Diabetes Cervical cancer Cardiovascular disease Father Asthma High blood pressure High cholesterol Diabetes Alcoholism Cardiovascular disease Maternal Grandmother Asthma Alcoholism Cardiovascular disease Diabetes High cholesterol High blood pressure Social History Housing: House Patient Tobacco Use Status: Current everyday Tobacco user Cigarettes Per Day: 12 Years Smoked: 28 e-Cigarette/Vaping Use: Never Used service: No Current occupational status: disabled Cognitive needs: No Hearing needs: No Vision needs: Yes (Patient wears glasses) Physical Exam Vital Signs: Last Vital Signs Pulse 110 H 02/25/24 09:38 BP 140/90 H 02/25/24 09:38 Assessment & Plan Assessment & Plan (1) Type 2 diabetes mellitus with hyperglycemia: Code(s): E11.65 - Type 2 diabetes mellitus with hyperglycemia Category: Medical Qualifiers: Diabetes mellitus long-term insulin use: without long-term use Qualified Code(s): E11.65 - Type 2 diabetes mellitus with hyperglycemia Plan: Uncontrolled type 2 diabetes-compliant with meds Increase metformin from 750mg twice daily to 1000mg twice daily. Increase glipizide to 20mg twice daily. Add actos 30mg daily, mounjaro 2.5 weekly RLE wound-discussed delayed healing in setting of hyperglycemia. She will continue wound care follow up. She was going to go the ER today for pain relief. I have given her two days of tramadol and advised her to call pain management since she missed their calls. Glucometer sent Follow up in 2-3 weeks with readings. We discussed the potential need for insulin (2) Peripheral vascular disorder due to diabetes mellitus: Code(s): E11.51 - Type 2 diabetes mellitus with diabetic peripheral angiopathy without gangrene Category: Medical Plan: see above Medications: New metformin 1,000 mg PO BID 180 tabs 3RF FreeStyle Test (blood sugar diagnostic) freestyle test strips Check once daily fasting 100 ea 3RF NS E11.9 - Type 2 diabetes mellitus without complications FreeStyle Lite Meter (blood-glucose meter) blood glucose monitoring 1 ea 0RF NS E11.9 - Type 2 diabetes mellitus without complications tramadol 50 mg PO Q8H 2 days PRN 6 tabs 0RF pain pioglitazone (Actos) 30 mg PO DAILY 90 tabs 3RF Mounjaro (tirzepatide) for 4 weeks 2.5 mg (0.5 mL) subcut QWEEK 2 mL 1RF NS FreeStyle Lancets (lancets) once daily 100 ea 3RF NS E11.9 - Type 2 diabetes mellitus without complications Changed From glipizide ER 10 mg PO QAM 30 days 30 tabs 3RF To glipizide ER 20 mg (2 x 10 mg) PO QAM 90 days 180 tabs 3RF Discontinued metformin Discontinued Reason: Doctor's Order 750 mg (1.5 x 500 mg) PO BID 30 days 90 tabs 1RF Coding Level of Care Code Est Pt Level 5 (48986) Diagnoses Type 2 diabetes mellitus with hyperglycemia, without long-term current use of insulin E11.65 Diabetes mellitus salvage determiner insulin use: without salvage determiner use Peripheral vascular disorder due to diabetes mellitus E11.51 Time Spent (min) 50
[2024-02-25 09:38] VITALS: BP 140/90; PULSE 110
[2024-02-25 09:43] LABS: Glucose, Whole Blood 266 mg/dL (60-115)
== END 2024-02-25 10:26 | disposition home or self-care (01) ==
PROVIDERS: PCP Family Medicine; Visit Provider Internal Medicine
DX: E11.65 Type 2 diabetes mellitus with hyperglycemia (principal); E11.51 Type 2 diabetes mellitus with diabetic peripheral angiopathy without gangrene
CPT/HCPCS: 99215

== ENCOUNTER → 2024-02-25 09:28 | Outpatient (BNVA) | payer OTHER, SELFPAY | PROVIDERS: PCP Family Medicine; Visit Provider Internal Medicine | DX: E11.65 Type 2 diabetes mellitus with hyperglycemia (principal); E11.51 Type 2 diabetes mellitus with diabetic peripheral angiopathy without gangrene | CPT/HCPCS: 82947; 99212 ==

== ENCOUNTER 2024-03-03 11:21 | Outpatient (AMB) | payer OTHER, SELFPAY ==
--- NOTE | 2024-03-03 11:22 | MHC.OFFVIS ---
Vital Signs 03/03/24 11:38 03/03/24 11:40 Height 5 ft 2 in Weight 291 lb 4 oz BMI 53.3 BP 168/130 H 159/89 H Blood Pressure Location Lt brachial Rt brachial Position Sitting Sitting Pulse 107 H 113 H Pulse Source Pulse Oximeter Pulse Oximeter Pulse Oximetry (%) 96 Intake Visit Reasons: Pain in right leg Intake Note: Pain today 12/22 Tax Attorney Required: No Accompanied by: Son Allergies No Known Allergies Allergy (Verified 03/03/24 12:51) HPI HPI Pain in right leg: Details: Patient is a 43 years old female with history of uncontrolled diabetes, anxiety and depression, history of opioid abuse, presents for initial evaluation for acute right leg pain due to right?lower?extremity?infected?wound?and?cellulitis. 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 She has been seen at [facility] and multiple PCP visits for right leg wound with infection. Patient reports she is followed at Wound Care center in [place]. She completed 3 courses of antibiotics and continues to take doxycycline. Patient is on Suboxone for past opioid abuse, and recently was prescribed morphine, tramadol and gabapentin. Patient reports difficulty walking on right leg due to pain and requests medical management to control her pain. I have informed patient that our office does not offer opioid prescribing. Patient declined interventional treatments. Unfortunately, given elevated A1C=8.6 and current open wound with infection, patient is not candidate for interventional treatments at this time. General Surgeon consult was offered, patient declined. Location: Right posterior leg, active wound with dressing Duration: 4 months Characteristics of symptom or complaint: Stabbing, throbbing, burning, sore, tinging, exhausting, tearing Aggravating or associated factors: Walking, movements, bending, weather changes, heat/cold Relieving factors: Morphine, tramadol, ketamine, elevation, wound care Treatment: 3 courses of antibiotics, Wound Care center, ER visits [facility] Medical History Depression Anxiety COPD (chronic obstructive pulmonary disease) Surgical History History of surgery on lower extremity S/P hernia surgery H/O tubal ligation Family History Mother Asthma High blood pressure High cholesterol Diabetes Cervical cancer Cardiovascular disease Father Asthma High blood pressure High cholesterol Diabetes Alcoholism Cardiovascular disease Maternal Grandmother Asthma Alcoholism Cardiovascular disease Diabetes High cholesterol High blood pressure Social History (Updated 03/03/24 @ 11:44 by Linda Guillen) Housing: House Alcohol intake: current Alcohol intake frequency: holidays/special occasions only Patient Tobacco Use Status: Current everyday Tobacco user Cigarettes Per Day: 12 Years Smoked: 28 e-Cigarette/Vaping Use: Never Used Substance Use Type: Marijuana service: No Current occupational status: disabled Cognitive needs: No Hearing needs: No Vision needs: Yes (Patient wears glasses) Review of Systems Const All systems reviewed & are unremarkable except as noted in HPI and below Physical Exam Vital Signs: Last Vital Signs Pulse 113 H 03/03/24 11:40 BP 159/89 H 03/03/24 11:40 Pulse Ox 96 03/03/24 11:38 BMI result Body Mass Index 53.3 General: Appears afebrile. Alert and oriented. Mood and affect appropriate. Follows and participates in conversation appropriately. Respiratory effort is unlabored. No cough. Able to transition from sit to stand unassisted. Ambulates with bilaterally normal heel strike and toe off. Extrem Other: Right lower extremity: lower leg (macerated wound partially open, bulky dressing-dry and intact) Details: erythema, tenderness (posterior leg), localized swelling and warmth Results Reviewed Results Reviewed: No imaging is available for review. Assessment & Plan Assessment & Plan (1) Type 2 diabetes mellitus with hyperglycemia: Code(s): E11.65 - Type 2 diabetes mellitus with hyperglycemia Category: Medical Qualifiers: Diabetes mellitus terminal press operator insulin use: without terminal press operator use Qualified Code(s): E11.65 - Type 2 diabetes mellitus with hyperglycemia (2) Right leg pain: Code(s): M79.604 - Pain in right leg Category: Medical (3) Cellulitis: Code(s): L03.90 - Cellulitis, unspecified Category: Medical (4) Wound of right lower extremity: Code(s): S81.801A - Unspecified open wound, right lower leg, initial encounter Category: Medical (5) History of opioid abuse: Code(s): F11.11 - Opioid abuse, in remission Category: Medical Plan Patient presents with significant right leg pain with erythema and swelling. She is followed at Wound Care clinic for wound care and dressing changes. Continues doxycycline, and previously completed cephalexin, Bactrim and doxycycline. Patient was informed we do not offer Opioid program. She is currently on Suboxone for history of opioid abuse. She is not candidate for our interventional treatments at this time given elevated A1C=8.6 and active open wound with infection. Briefly discussed potential future treatments, patient stated she is not interested in any injections or procedures, she just want her pain go away. General Surgeon referral offered, patient declined. Patient will follow up with her PCP and Wound Care center. All questions and concerns have been answered. Follow up as needed. Coding Level of Care Code New Pt Level 3 (43991) Diagnoses Type 2 diabetes mellitus with hyperglycemia, without long-term current use of insulin E11.65 Diabetes mellitus terminal press operator insulin use: without intermediate use Right leg pain M79.604 Cellulitis L03.90 Wound of right lower extremity S81.801A History of opioid abuse F11.11
[2024-03-03 11:38] VITALS: BP 168/130; PULSE 107; O2SAT 96; BMI 53.3
[2024-03-03 11:40] VITALS: BP 159/89; PULSE 113
== END 2024-03-03 11:56 | disposition home or self-care (01) ==
PROVIDERS: PCP Family Medicine; Visit Provider Nurse Practitioner Family
DX: E11.65 Type 2 diabetes mellitus with hyperglycemia (principal); L03.90 Cellulitis, unspecified; Z79.891 Long term (current) use of opiate analgesic; S81.801A Unspecified open wound, right lower leg, initial encounter; M79.604 Pain in right leg
CPT/HCPCS: 99203

== ENCOUNTER 2024-03-03 11:21 | Outpatient (REF) | payer OTHER, SELFPAY ==
[2024-03-03 18:36] LABS: Amphetamine Screen Urine Not Detected (Not Detect); Barbiturates, Urine Not Detected (Not Detect); Benzodiazepines Screen Urine Not Detected (Not Detect); Buprenorphine Scr Positive (Not Detect); Cannabinoid Screen Urine POSITIVE (Not Detect); Cocaine Screen Urine Not Detected (Not Detect); Fentanyl, urine Not Detected (Not Detect); Methadone Screen, Urine Not Detected (Not Detect); Opiate Screen Urine Not Detected (Not Detect); Oxycodone Screen Urine Not Detected (Not Detect); Phencyclidine Screen Urine Not Detected (Not Detect)
== END 2024-03-03 11:22 | disposition home or self-care (01) ==
LOC: HO.LAB 11:21
PROVIDERS: Nurse Practitioner Family; PCP Family Medicine; Visit Provider Nurse Practitioner Family
DX: E11.51 Type 2 diabetes mellitus with diabetic peripheral angiopathy without gangrene (principal); M79.604 Pain in right leg; S81.801S Unspecified open wound, right lower leg, sequela; Z79.891 Long term (current) use of opiate analgesic
CPT/HCPCS: 80307; 99202; 99212

== ENCOUNTER → 2024-03-03 12:39 | Outpatient (AMB) | payer OTHER, SELFPAY ==
--- NOTE | 2024-03-03 12:49 | AM.OFFWIN_ITS ---
Intake Vital Signs 3 03/03/24 12:55 Height 5 ft 2 in Weight 281 lb BMI 51.4 BP 114/74 Blood Pressure Location Rt brachial Position Sitting Respiration 15 Pulse 117 H Pulse Source Pulse Oximeter Pulse Oximetry (%) 95 Oxygen Delivery Method Room Air Intake Visit Reasons: est/pain/ right leg wound Intake Note: patient complaining of right leg wound x 3 months Patient Tobacco Use Status: Current everyday Tobacco user Allergies No Known Allergies Allergy (Verified 03/03/24 12:51) Medication List - Last Reconciled 03/03/24 by Gladys Zimmerman, HOSPITAL CLERK- albuterol sulfate 90 mcg/actuation (Ventolin HFA) 2 puffs inhalation Q4-6H PRN 30 days aripiprazole 5 mg PO BEDTIME 30 days doxycycline hyclate 100 mg PO BID FreeStyle Lancets (lancets) once daily NS FreeStyle Lite Meter (blood-glucose meter) blood glucose monitoring NS FreeStyle Lite Strips (blood sugar diagnostic) once daily NS furosemide 10 mg (1/2 x 20 mg) PO QAM 30 days gabapentin 300 mg PO TID 30 days glipizide ER 20 mg (2 x 10 mg) PO QAM 90 days meloxicam 15 mg PO DAILY 30 days metformin 1,000 mg PO BID naloxone 4 mg/actuation intranasal pioglitazone (Actos) 30 mg PO DAILY pioglitazone 30 mg PO DAILY Do you need a note to return to daycare/school/sports/work: No HPI HPI Comments 2 History of Present Illness0 Details 43-year-old female with a complex medica l history here today to be seen in the walk-in. She was here to see the nurse navigator for diabetes education. The diabetes education turned into a request for opiates to treat her pain in her right lower extremity which has a chronic wound. The patient became escalated and started to yell. She is accompanied by her son who was also yelling. The patient was placed in the waiting room and asked to be evaluated in the walk-in for her chronic pain. When I asked her why she was here, she was forthright in saying that she needs medication to treat her pain in her right lower extremity. Reports that she was referred to pain management at [facility]. She had her initial appointment this morning. I did spend time reviewing this initial consult. When asked about care for her wound on the right lower extremity she tells me that she is active with the wound center in [place] every Thursday and she does have visiting nurse to help her with the dressing changes. She states that she recently was referred to Dermatology for treatment of the right lower extremity wound as well but she is unsure why. This referral has not happened yet. She states that she has gone to the emergency room several times, the son interjects and says 'every day', for pain management. I reviewed her active medication list which include meloxicam and gabapentin. She reports that she is taking these as directed and it was not helping. She needs starts to talk about pain during the dressing changes. Asked if she would be amenable to being prescribe something topical to use for her dressing changes to help her manage the pain. She reports that she can not do this and that she needs opiates. States that she was given morphine in the seems to be the only thing that works for her. At this time I did see consult with her primary care provider who came in to address the patient. After this, the plan was to have her sign a chronic narcotic contract. This was completed today. She will be given a prescription for Percocet 1 tab twice per day, a 30 day prescription which will be managed by Dr. Ramires going forward. She should continue to take her gabapentin as well as her meloxicam. And follow up with Dr. Ramires as scheduled which is in March. Today during the visit the following was reviewed: Screened for risk of opioid misuse using a validated screening tool. Receive, review, and sign an approved [facility] Agreement and Informed Consent for Receiving Controlled Substances, which should be stored in the EMR. Non-pharmacologic and non-opioid pharmacologic options should be used as a first line for chronic pain unless otherwise contraindicated & in conjunction with Reviewed side effects and discuss the risks of addiction and overdose with all patients on chronic opioid therapy. Counseled patient regarding safe storage and disposal of medications. Prescribing intranasal naloxone (Narcan) rescue kits to patients if appropriate. Prescriptions should be limited to 28-day supplies unless mandated otherwise by insurance. Renewals should not be given on evenings, holidays, or weekends. Regular clinical reassessment of pain, functional goals, treatment plan, and adherence. Understand that pill counts and/or random toxicology screens (minimum yearly) are all part of a standard [facility] protocol for care. More frequent monitoring is appropriate for monitoring of symptoms or concerns of misuse. Irregular findings should be addressed with the patient and documented in the EMR with the appropriate clinical and/or administrative response. 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 While every effort has been made to ensure accuracy in daycare worker, still errors may have been included Sometimes, these errors may affect the content or meaning of the given sentence . Total time spent caring for the patient today was 75 minutes. This includes time spent before the visit reviewing the chart, time spent during the visit, and time spent after the visit on documentation [facility] Medical History Depression Anxiety COPD (chronic obstructive pulmonary disease) Surgical History History of surgery on lower extremity S/P hernia surgery H/O tubal ligation Family History Mother Asthma High blood pressure High cholesterol Diabetes Cervical cancer Cardiovascular disease Father Asthma High blood pressure High cholesterol Diabetes Alcoholism Cardiovascular disease Maternal Grandmother Asthma Alcoholism Cardiovascular disease Diabetes High cholesterol High blood pressure Social History (Updated 03/03/24 @ 11:44 by Linda Guillen) Housing: House Alcohol intake: current Alcohol intake frequency: holidays/special occasions only Patient Tobacco Use Status: Current everyday Tobacco user Cigarettes Per Day: 12 Years Smoked: 28 e-Cigarette/Vaping Use: Never Used Substance Use Type: Marijuana service: No Current occupational status: disabled Cognitive needs: No Hearing needs: No Vision needs: Yes (Patient wears glasses) Physical Exam Vital Signs: Last Vital Signs Pulse 117 H 03/03/24 12:55 Resp 15 03/03/24 12:55 BP 114/74 03/03/24 12:55 Pulse Ox 95 03/03/24 12:55 Oxygen Delivery Method Room Air 03/03/24 12:55 BMI result Body Mass Index 51.4 General: Alert and oriented. Accompanied by Son. Unkempt Respiratory effort is unlabored. No cough. Able to transition from sit to stand unassisted. Extrem Other: Right lower extremity: lower leg (macerated wound partially open, bulky dressing-dry and intact) Details: erythema, tenderness (posterior leg), localized swelling and warmth Results Reviewed Results Reviewed: RUN: 03/03/24 [id number] PAGE 1 [facility] [address] [place] [id number] Park Naturalist: Christopher Gr M.D. Specimen Inquiry L Name: Jennifer Whitfield Age/Sex: 43/F : 1980 Unit#: [id number] Attend Dr: Dorinda Miguel Re03/03/24 Status: REG REF Location: [facility] isch: SPEC : [id number] RUBI: 03/03/24 STATUS: COMP REQ : [id number] RECD: 03/03/[address]: Gladys Zimmerman [facility]- COMP: 03/03/24 ENTERED: 03/03/[address]: Christopher Ramires MD, Olga FNP ORDERED: Ur Drug Scrn Test Result Flag Reference Opiates, Ur Not Detected Not Detect Opiate cut-off is 300 ng/mL. Positive results are unconfirmed and should not be used for non-medical purposes. Barbiturate, Ur Not Detected Not Detect Barbiturate cut-off is 200 ng/mL. Positive results are unconfirmed and should not be used for non-medical purposes. PCP, Ur Not Detected Not Detect Phencyclidine cut-off is 25 ng/mL. Positive results are unconfirmed and should not be used for non-medical purposes. Amphetamine,Ur Not Detected Not Detect Amphetamine cut-off is 1000 ng/mL. Positive results are unconfirmed and should not be used for non-medical purposes. Benzodiazep,Ur Not Detected Not Detect Benzodiazepine cut-off is 200 ng/mL. Positive results are unconfirmed and should not be used for non-medical purposes. Cocaine, Ur Not Detected Not Detect Cocaine cut-off is 300 ng/mL. Positive results are unconfirmed and should not be used for non-medical purposes. Cannabinoid, Ur POSITIVE H Not Detect Cannabinoid cut-off is 50 ng/mL. Positive results are unconfirmed and should not be used for non-medical purposes. Ur Meth Scrn Not Detected Not Detect ng/mL Methadone cut-off is 300 ng/mL. Positive results are unconfirmed and should not be used for non-medical purposes. Fentanyl, ur Not Detected Not Detect Fentanyl cut-off is 1 ng/mL. Positive results are unconfirmed and should not be used for non-medical purposes. Oxycodone Urine Not Detected Not Detect ng/mL Oxycodone cut-off is 100 ng/mL. Positive results are unconfirmed and should not be used for non-medical purposes. Buprenorph Scr Positive H Not Detect ng/mL Buprenorphine cut-off is 5 ng/mL. Positive results are unconfirmed and should not be used for non-medical purposes. END OF REPORT Assessment & Plan Assessment & Plan (1) Opiate analgesic contract exists: Code(s): Z79.891 - bookbinder chief (current) use of opiate analgesic (2) Wound of right lower extremity: Code(s): S81.801A - Unspecified open wound, right lower leg, initial encounter Qualifiers: Encounter type: sequela Qualified Code(s): S81.801S - Unspecified open wound, right lower leg, sequela (3) Peripheral vascular disorder due to diabetes mellitus: Code(s): E11.51 - Type 2 diabetes mellitus with diabetic peripheral angiopathy without gangrene Plan: . Plan . Orders: Orders 2 Drug Screen Urine 03/03/24 Z79.891 - bookbinder chief (current) use of opiate analgesic Medications: New 2 oxycodone-acetaminophen 5-325 mg (Percocet) Partial Fill upon patient request. 1 tab PO BID PRN 60 tabs 0RF pain Patient Instructions: Continue to use her gabapentin and meloxicam as currently prescribed. Avoid other NSAIDs while using meloxicam. Be cautious of extra Tylenol use as there is Tylenol in Percocet. Not to exceed 3 g in 24 hours. Be sure to follow up with your doctor as scheduled. Your pain contract was signed today and returned to you as a copy. Coding Level of Care Code Est Pt Level 5 (93584) Diagnoses Opiate analgesic contract exists Z79.891 Wound of right lower extremity, sequela S81.801S Encounter type: sequela Peripheral vascular disorder due to diabetes mellitus E11.51 CPT Codes [facility] OUTPT/OFFICE VIS - G2212
[2024-03-03 12:55] VITALS: BP 114/74; PULSE 117; RESP 15; O2SAT 95; BMI 51.4
== END ==
PROVIDERS: PCP Family Medicine; Visit Provider Nurse Practitioner Family
DX: E11.51 Type 2 diabetes mellitus with diabetic peripheral angiopathy without gangrene (principal); Z79.891 Long term (current) use of opiate analgesic; S81.801S Unspecified open wound, right lower leg, sequela

== ENCOUNTER 2024-03-31 14:00 | Outpatient (AMB) | payer OTHER, SELFPAY ==
--- NOTE | 2024-03-31 14:15 | MHC.PC.OV ---
Vital Signs 03/31/24 14:18 Height 5 ft 2 in Weight 285 lb 8 oz BMI 52.2 BP 119/66 Blood Pressure Location Rt brachial Position Sitting Respiration 16 Pulse 103 H Pulse Source Pulse Oximeter Temp 97.0 F Temp Source Temporal Artery Scan Pulse Oximetry (%) 93 Oxygen Delivery Method Room Air Intake Visit Reasons: f/u diabetes Intake Note: f/u DM Allergies No Known Allergies Allergy (Verified 03/31/24 14:16) Tobacco use date assessed: 12/03/23 Dental Screening Dental Screen Date: 12/03/23 HPI f/u diabetes HPI Details 43 y/o female presents to f/u uncontrolled diabetes and leg wound with edema. Increased her glipizide. Had given her 10mg of furosemide daily for edema. Last A1c 03/04/24 9.6%. A1c today 03/31/24 is 9.4%. She is on metformin 1000mg b.i.d, glipizide 20mg daily. Also on piolgitazone 30mg daily. Reports R leg pain - was seen at [facility] a month ago for this and was diagnosed with pyoderma gangrenosum. She notes she had seen dermatology yesterday. [facility] Medical History Depression Anxiety COPD (chronic obstructive pulmonary disease) Surgical History History of surgery on lower extremity S/P hernia surgery H/O tubal ligation Family History Mother Asthma High blood pressure High cholesterol Diabetes Cervical cancer Cardiovascular disease Father Asthma High blood pressure High cholesterol Diabetes Alcoholism Cardiovascular disease Maternal Grandmother Asthma Alcoholism Cardiovascular disease Diabetes High cholesterol High blood pressure Social History (Updated 03/03/24 @ 11:44 by Linda Guillen) Housing: House Alcohol intake: current Alcohol intake frequency: holidays/special occasions only Patient Tobacco Use Status: Current everyday Tobacco user Cigarettes Per Day: 12 Years Smoked: 28 e-Cigarette/Vaping Use: Never Used Substance Use Type: Marijuana service: No Current occupational status: disabled Cognitive needs: No Hearing needs: No Vision needs: Yes (Patient wears glasses) Questionnaire Thrive Questionnaire Date Thrive assessed: 12/03/23 KRYSTA-7 AMB Questionnaire KRYSTA-7 Date KRYSTA - 7 assessed: 12/03/23 Source: Developed by Drs. Jian Smith, Lucinda Del Rio, Rahul Leung and colleagues, with an educational ju from [employer]. Review of Systems Const Denies chills, Denies fatigue, Denies fever(s), Denies headache(s) and Denies weakness ENT Denies dizziness and Denies headache(s) Card Denies dyspnea Resp Denies cough, Denies dyspnea, Denies wheezing and Denies other (shortness of breath) Musc Denies numbness and Denies tingling Neuro Denies dizziness, Denies headache(s), Denies numbness, Denies tingling and Denies weakness Psych Denies anxiety and Denies depression Endo Denies fatigue Aller/Immun Denies wheezing Physical exam (Primary Care) Vital Signs: Last Vital Signs Temp 97.0 F 03/31/24 14:18 Pulse 103 H 03/31/24 14:18 Resp 16 03/31/24 14:18 BP 119/66 03/31/24 14:18 Pulse Ox 93 03/31/24 14:18 Oxygen Delivery Method Room Air 03/31/24 14:18 BMI result Body Mass Index 52.2 Tobacco/Smoking Status: Tobacco use Status Tobacco use date assessed 12/03/23 03/31/24 14:23 Patient Tobacco Use Status Current everyday Tobacco 03/31/24 14:23 e-Cigarette/Vaping Use Never Used 03/31/24 14:23 Thrive Assessment: Date of Thrive Assessment Date Thrive assessed 12/03/23 03/31/24 14:23 Const General: well developed; No acute distress Nutritional Appearance: well nourished and obese morbidly obese Orientation/consciousness: patient oriented x3 [facility] Head: Yes normocephalic and Yes atraumatic Eyes General: appearance normal, both eyes and all related structures Pupils: Equal, round and reactive pupils present EOM: EOMs intact bilaterally Resp Effort & Inspection: normal respiratory effort Neuro General: patient oriented x3 and gait normal Cranial nerves: Yes Equal, round and reactive pupils present Psych Affect: normal affect Coding Level of Care Code Est Pt Level 3 (87321) Diagnoses Type 2 diabetes mellitus with hyperglycemia, without long-term current use of insulin E11.65 Diabetes mellitus terminal superintendent insulin use: without custodial use Pyoderma gangrenosa L88 Right leg pain M79.604 Assessment & Plan Assessment & Plan (1) Type 2 diabetes mellitus with hyperglycemia: Code(s): E11.65 - Type 2 diabetes mellitus with hyperglycemia Category: Medical Qualifiers: Diabetes mellitus custodial insulin use: without terminal superintendent use Qualified Code(s): E11.65 - Type 2 diabetes mellitus with hyperglycemia Plan: A1c?decreased?only?slightly?from?9.6-9.1%.??Uncontrolled.??Goal?is?less?than?7.0% Will?add?Lantus?10?units?q.p.m. Continue?metformin?as?prescribed She?will?decrease?her?glipizide?from?20?mg?daily?to?10?mg?daily?while?she?checks?her?blood?sugars?to?ensure?she?does?not?get?low?blood?pressures. (2) Pyoderma gangrenosa: Code(s): L88 - Pyoderma gangrenosum Category: Medical Plan: She?was?given?topical?steroids?but?says?she?was?unable?to?acquire?this[facility]via[facility]. Patient?says?she?was?given?a?script?for?betamethasone?but?could?not?get?it.??Will?try?clobetasol?and?could?try?triamcinolone?if?she?is?unable?to?get?that. She?has?an?appointment?with?Dermatology?again?next?Thursday. (3) Right leg pain: Code(s): M79.604 - Pain in right leg Category: Medical Plan: Right?leg?pain?and?swelling?secondary?to?pyoderma?gangrenosa See?above Giving?her?pain?control?with?Percocet?and?she?has?signed?a?pain?contract. She?can?continue?this.??She?can?also?take?meloxicam?as?well.??Hydrate?well Medications: New clobetasol 0.05% 1 appl topical BID 2 weeks 45 grams 1RF insulin glargine (Lantus Solostar U-100 Insulin) 10 units (0.1 mL) subcut QPM 30 days 3 mL 3RF pen needle, diabetic (BD Ultra-Fine Mini Pen Needle) Daily, As directed. 90 days 100 ea 2RF E11.9 - Type 2 diabetes mellitus without complications Refilled oxycodone-acetaminophen 5-325 mg (Percocet) Partial Fill upon patient request. 1 tab PO BID PRN 60 tabs 0RF pain
[2024-03-31 14:18] VITALS: BP 119/66; PULSE 103; RESP 16; TEMP 36.1; O2SAT 93; BMI 52.2
== END 2024-03-31 14:45 | disposition home or self-care (01) ==
LOC: HO.HMCFM 14:01
PROVIDERS: PCP Family Medicine; Visit Provider Family Medicine
DX: E11.65 Type 2 diabetes mellitus with hyperglycemia (principal); L88 Pyoderma gangrenosum; M79.604 Pain in right leg

== ENCOUNTER → 2024-03-31 14:00 | Outpatient (BNVA) | payer OTHER, SELFPAY | PROVIDERS: PCP Family Medicine; Visit Provider Family Medicine | DX: E11.65 Type 2 diabetes mellitus with hyperglycemia (principal); L88 Pyoderma gangrenosum; M79.604 Pain in right leg | CPT/HCPCS: 99212 ==

== ENCOUNTER → 2024-04-15 23:59 | Outpatient (BNV) | payer OTHER, SELFPAY | PROVIDERS: PCP Family Medicine; Visit Provider Family Medicine | DX: E11.622 Type 2 diabetes mellitus with other skin ulcer (principal); L97.213 Non-pressure chronic ulcer of right calf with necrosis of muscle; E11.69 Type 2 diabetes mellitus with other specified complication | CPT/HCPCS: G0179 ==

== ENCOUNTER → 2024-04-25 23:59 | Outpatient (BNV) | payer OTHER, SELFPAY | PROVIDERS: PCP Family Medicine; Visit Provider Family Medicine | DX: E11.622 Type 2 diabetes mellitus with other skin ulcer (principal); L97.213 Non-pressure chronic ulcer of right calf with necrosis of muscle; E11.69 Type 2 diabetes mellitus with other specified complication | CPT/HCPCS: G0179 ==

== ENCOUNTER → 2024-05-17 14:23 | Outpatient (BNVA) | payer OTHER, SELFPAY | PROVIDERS: PCP Family Medicine; Visit Provider Family Medicine ==

== ENCOUNTER → 2024-06-21 23:59 | Outpatient (BNV) | payer OTHER, SELFPAY | PROVIDERS: PCP Internal Medicine; Visit Provider Family Medicine | DX: E11.622 Type 2 diabetes mellitus with other skin ulcer (principal); L97.213 Non-pressure chronic ulcer of right calf with necrosis of muscle | CPT/HCPCS: G0179 ==

== ENCOUNTER 2024-08-12 11:06 | Outpatient (AMB) | payer OTHER, SELFPAY ==
--- NOTE | 2024-08-12 11:12 | A.OFFPC_ITS ---
Vital Signs 08/12/24 11:20 Height 5 ft 2 in Weight 289 lb BMI 52.9 BP 104/78 Blood Pressure Location Lt brachial Position Sitting Respiration 24 H Pulse 107 H Pulse Source Pulse Oximeter Pulse Oximetry (%) 97 Oxygen Delivery Method Room Air Intake Visit Reasons: T[facility] FROM [facility] Intake Note: New patient visit [place] Required: No Allergies No Known Allergies Allergy (Verified 08/12/24 11:14) Medication List - Last Reconciled 08/12/24 by Meera Couch MD acetaminophen mg PO albuterol sulfate 90 mcg/actuation (Ventolin HFA) 2 puffs inhalation Q4-6H PRN 30 days aripiprazole 5 mg PO BEDTIME 30 days buprenorphine-naloxone 8-2 mg (Suboxone) 1 film buccal Q24H FreeStyle Lancets (lancets) once daily NS FreeStyle Lite Meter (blood-glucose meter) blood glucose monitoring NS FreeStyle Lite Strips (blood sugar diagnostic) once daily NS furosemide 10 mg (1/2 x 20 mg) PO QAM 30 days gabapentin 300 mg PO TID 30 days glipizide ER 20 mg (2 x 10 mg) PO QAM 90 days insulin glargine (Lantus Solostar U-100 Insulin) 16 units subcut QPM meloxicam 15 mg PO DAILY 30 days metformin 1,000 mg PO BID nicotine 1 patch topical DAILY pen needle, diabetic (BD Ultra-Fine Mini Pen Needle) Daily, As directed. 90 days Tobacco use date assessed: 08/12/24 Dental Screening Dental Screen Date: 08/12/24 Did you have a dental visit in the last 12 months?: No Did you have a dental problem in the last 6 months where you did not have access to dental care?: No Was dental information given to patient?: Patient declined HPI HPI Comments History of Present Illness Details The patient is a 43 year old female with a past medical history of type 2 diabetes, Right lower extremity wound, h/o opioid dependence, bipolar disorder presenting to [facility]. She is an internal transfer. Diabetes: On Metformin 1000mg twice daily. Glipizide 20mg daily, supposed to be on actos 30mg daily-she is unsure if she is taken. Prescribed Lantus she misses most doses. Last A1C 9.6%-she is due for repeat Micro/macrovascular complications: Right lower extremity wound with delayed healing-following with wound care-[place] every thursday. She is on suboxone- gets this in [place] . [facility] wound care. BH: Bipolar disorder, anxiety. Endorses extreme social anxiety, poor sleep. She is currently prescribed abilify. Not following with psychiatry. ROS see HPI PHYSICAL EXAM: GENERAL: Alert and oriented x 3. NAD EYES: EOMI. Anicteric. HENT: Moist mucous membranes. LUNGS: Clear to auscultation bilaterally. CARDIOVASCULAR: Regular rate and rhythm. ABDOMEN: Soft, non-tender +bs EXTREMITIES: Right lower extremity is bandaged, no purulence SKIN: No rashes or lesions. Warm. NEUROLOGIC: No focal neurological deficits. CN II-XII grossly intact PSYCHIATRIC: Cooperative. Teary, in pain COUNT INCLUDES THE [facility] Medical History Depression Anxiety COPD (chronic obstructive pulmonary disease) Surgical History H/O skin graft History of surgery on lower extremity S/P hernia surgery H/O tubal ligation Family History Mother Asthma High blood pressure High cholesterol Diabetes Cervical cancer Cardiovascular disease Father Asthma High blood pressure High cholesterol Diabetes Alcoholism Cardiovascular disease Maternal Grandmother Asthma Alcoholism Cardiovascular disease Diabetes High cholesterol High blood pressure Other FH: mental illness Substance abuse Social History Housing: House Alcohol intake: current Alcohol intake frequency: holidays/special occasions only Patient Tobacco Use Status: Current everyday Tobacco user Cigarette Packs Per Day: 0.5 Years Smoked: 28 e-Cigarette/Vaping Use: Never Used Substance Use Type: Marijuana service: No Current occupational status: disabled Cognitive needs: No Hearing needs: No Vision needs: Yes (Patient wears glasses) Questionnaire Thrive Questionnaire Date Thrive assessed: 06/27/24 I am a: Patient What is your living situation today?: I have a steady place to live Within the past 12 months, did the food you bought not last and you didn't have the money to get more?: I choose not to answer this question Within the past 12 months, did you worry whether your food would run out before you got money to buy more?: I choose not to answer this question Do you have trouble paying for medicines?: I choose not to answer this question Do you have trouble getting transportation to medical appointments?: I choose not to answer this question Do you have trouble paying your heating and electricity bill?: I choose not to answer this question Do you have trouble taking care of your child, family member or friend?: I choose not to answer this question Do you have trouble with day-to-day activities such as bathing, preparing meals, shopping, managing finances, etc.?: I choose not to answer this question Are you currently unemployed and looking for a job?: I choose not to answer this question Are you interested in more education?: I choose not to answer this question Please select the resources that you would like help with: None Currently or been in a relationship where the following occur: I choose not to answer THRIVE Score: 0 KRYSTA-7 AMB Questionnaire KRYSTA-7 Date KRYSTA - 7 assessed: 12/03/23 Source: Developed by Drs. Jian Smith, Lucinda Del Rio, Rahul Leung and colleagues, with an educational ju from [employer]. Physical exam (Primary Care) Vital Signs: Last Vital Signs Pulse 107 H 08/12/24 11:20 Resp 24 H 08/12/24 11:20 BP 104/78 08/12/24 11:20 Pulse Ox 97 08/12/24 11:20 Oxygen Delivery Method Room Air 08/12/24 11:20 BMI result Body Mass Index 52.9 Tobacco/Smoking Status: Tobacco use Status Tobacco use date assessed 08/12/24 08/12/24 11:22 Patient Tobacco Use Status Current everyday Tobacco 08/12/24 11:19 e-Cigarette/Vaping Use Never Used 08/12/24 11:19 Thrive Assessment: Date of Thrive Assessment Date Thrive assessed 06/27/24 08/12/24 11:14 Currently or been in a relationship where the following occur: I choose not to answer Coding Level of Care Code Est Pt Level 5 (00218) Diagnoses Type 2 diabetes mellitus with hyperglycemia, without long-term current use of insulin E11.65 Diabetes mellitus chcf insulin use: without long filler cigar roller machine use Peripheral vascular disorder due to diabetes mellitus E11.51 Bipolar disorder in partial remission, most recent episode unspecified type F31.70 Active/Remission status: in partial remission Most recent bipolar episode type: unspecified type Time Spent (min) 48 Assessment & Plan Assessment & Plan (1) Type 2 diabetes mellitus with hyperglycemia: Code(s): E11.65 - Type 2 diabetes mellitus with hyperglycemia Category: Medical Qualifiers: Diabetes mellitus long filler cigar roller machine insulin use: without long filler cigar roller machine use Qualified Code(s): E11.65 - Type 2 diabetes mellitus with hyperglycemia Plan: Encouraged medication compliance. All meds to be sent. Efforts toward weight loss (2) Peripheral vascular disorder due to diabetes mellitus: Code(s): E11.51 - Type 2 diabetes mellitus with diabetic peripheral angiopathy without gangrene Category: Medical Plan: Continue follow up wound care. (3) Bipolar disorder: Code(s): F31.9 - Bipolar disorder, unspecified Category: Medical Qualifiers: Active/Remission status: in partial remission Most recent bipolar episode type: unspecified type Qualified Code(s): F31.70 - Bipolar disorder, currently in remission, most recent episode unspecified Plan: Social anxiety, tachycardia, will start propranolol. Insomnia-start trazodone. Declines consult Orders: Orders Hemoglobin A1c 08/12/24 E11.51 - Type 2 diabetes mellitus with diabetic peripheral angiopathy without gangrene, E11.65 - Type 2 diabetes mellitus with hyperglycemia, F31.9 - Bipolar disorder, unspecified Comprehensive Met. Panel 08/12/24 E11.51 - Type 2 diabetes mellitus with diabetic peripheral angiopathy without gangrene, E11.65 - Type 2 diabetes mellitus with hyperglycemia, F31.9 - Bipolar disorder, unspecified Complete Blood Count Auto Diff 08/12/24 E11.51 - Type 2 diabetes mellitus with diabetic peripheral angiopathy without gangrene, E11.65 - Type 2 diabetes mellitus with hyperglycemia, F31.9 - Bipolar disorder, unspecified Lipid Panel 08/12/24 E11.51 - Type 2 diabetes mellitus with diabetic peripheral angiopathy without gangrene, E11.65 - Type 2 diabetes mellitus with hyperglycemia, F31.9 - Bipolar disorder, unspecified TSH reflex Free T4 08/12/24 E11.51 - Type 2 diabetes mellitus with diabetic peripheral angiopathy without gangrene, E11.65 - Type 2 diabetes mellitus with hyperglycemia, F31.9 - Bipolar disorder, unspecified Medications: New trazodone 50 mg PO BEDTIME PRN 90 tabs 3RF sleep insulin glargine (Lantus Solostar U-100 Insulin) 16 units (0.16 mL) subcut QPM 30 mL 3RF propranolol 10 mg PO BID 180 tabs 3RF pioglitazone 30 mg PO DAILY 90 tabs 3RF pioglitazone 30 mg PO DAILY 90 tabs 3RF Changed From aripiprazole Take at 09:30pm 5 mg PO BEDTIME 30 days 30 tabs 2RF To aripiprazole Take at 09:30pm 5 mg PO BEDTIME 90 days 90 tabs 3RF From furosemide 10 mg (1/2 x 20 mg) PO QAM 30 days 15 tabs 2RF To furosemide 10 mg (1/2 x 20 mg) PO QAM 30 days PRN 15 tabs 2RF leg swelling Refilled metformin 1,000 mg PO BID 180 tabs 3RF meloxicam 15 mg PO DAILY 30 days 30 tabs 2RF L08.9 - Local infection of the skin and subcutaneous tissue, unspecified, T14.8XXA - Other injury of unspecified body region, initial encounter glipizide ER 20 mg (2 x 10 mg) PO QAM 90 days 180 tabs 3RF gabapentin 300 mg PO TID 30 days 90 caps 1RF
[2024-08-12 11:20] VITALS: BP 104/78; PULSE 107; RESP 24; O2SAT 97; BMI 52.9
== END 2024-08-12 11:36 | disposition home or self-care (01) ==
PROVIDERS: PCP Internal Medicine; Visit Provider Internal Medicine
DX: E11.65 Type 2 diabetes mellitus with hyperglycemia (principal); E11.51 Type 2 diabetes mellitus with diabetic peripheral angiopathy without gangrene; F31.70 Bipolar disorder, currently in remission, most recent episode unspecified

== ENCOUNTER → 2024-08-12 11:06 | Outpatient (BNVA) | payer OTHER, SELFPAY | PROVIDERS: PCP Internal Medicine; Visit Provider Internal Medicine | DX: E11.65 Type 2 diabetes mellitus with hyperglycemia (principal); E11.51 Type 2 diabetes mellitus with diabetic peripheral angiopathy without gangrene; F31.70 Bipolar disorder, currently in remission, most recent episode unspecified; G47.00 Insomnia, unspecified | CPT/HCPCS: 36415; 80053; 80061; 83036; 84443; 85025; 99212 ==

== ENCOUNTER 2024-08-12 11:55 | Outpatient (REF) | payer OTHER, SELFPAY ==
[2024-08-12 14:34] LABS: MANUAL DIFF FLAG NO
[2024-08-12 14:46] LABS: Basophils Absolute Auto 0.1 X10*3/uL (0.0-0.2); Basophils Percent Auto 0.6 % (0-2); Eosinophils Absolute Auto 0.8 X10*3/uL (0.0-0.4); Eosinophils Percent Auto 4.9 % (0-4); Hematocrit 43.9 % (37.0-47.0); Hemoglobin 14.1 g/dl (12.0-16.0); Imm Gran Abs Auto 0.07 X10*3/uL (0.00-0.03); Imm Gran Pct Auto 0.5 % (0.0-0.4); Lymphocytes Absolute Auto 4.6 X10*3/uL (1.2-4.9); Lymphocytes Percent Auto 29.9 % (20-40); Mean Corpuscular HGB Conc 32.1 g/dl (31.0-35.0); Mean Corpuscular Hemoglobin 27.1 pg (27.0-33.0); Mean Corpuscular Volume 84.4 fL (80.0-98.0); Mean Platelet Volume 10.5 fL (9.4-12.3); Monocytes Absolute Auto 0.7 X10*3/uL (0.1-1.2); Monocytes Percent Auto 4.3 % (2-11); Neutrophils Absolute Auto 9.3 x10*3/uL (2.0-8.3); Neutrophils Percent Auto 59.8 % (45-73); Platelet Count 433 X10*3/uL (160-400); Red Cell Distribution Width 16.1 % (11.0-16.0); White Blood Count 15.5 X10*3/uL (4.8-10.8)
[2024-08-12 14:57] LABS: Estimated Average Glucose 137 mg/dL; Hemoglobin A1C 168.2135 umol/L; Hemoglobin A1c % 6.4 % (<6.0); Total Hemoglobin (HGBA1C) 3643.2753 umol/L
[2024-08-12 18:55] LABS: Alanine Aminotransferase 25 U/L (0-31); Albumin Level 3.9 g/dL (3.5-5.0); Alkaline Phosphatase 94 U/L (39-117); Anion Gap 14 (12-20); Aspartate Amino Transferase 34 U/L (5-31); Bilirubin Total 0.3 mg/dL (0.0-1.0); Blood Urea Nitrogen 7 mg/dL (9-16); Calcium 9.1 mg/dL (8.4-10.2); Carbon Dioxide 24 mmol/L (22-29); Chloride 106 mmol/L (96-108); Cholesterol 129 mg/dL (<200); Estimated Glomerular Filt Rate > 60; Glucose Random 73 mg/dL (60-115); HDL Cholesterol 29 mg/dL (>40); LDL Cholesterol Calculated 82 mg/dL (<100); Potassium 3.8 mmol/L (3.3-5.1); Sodium 140 mmol/L (135-145); Total Protein 7.7 g/dL (6.5-8.0); Triglycerides 90 mg/dL (<150)
[2024-08-12 19:11] LABS: TSH reflex Free T4 2.23 uIU/mL (0.32-4.0)
== END 2024-08-12 11:56 | disposition home or self-care (01) ==
LOC: HO.WFDLDS 11:55
PROVIDERS: Visit Provider Internal Medicine
DX: E11.65 Type 2 diabetes mellitus with hyperglycemia (principal); E11.51 Type 2 diabetes mellitus with diabetic peripheral angiopathy without gangrene; F31.9 Bipolar disorder, unspecified
CPT/HCPCS: 36415; 80053; 80061; 83036; 84443; 85025

== ENCOUNTER 2024-08-23 11:23 | Outpatient (AMB) | payer OTHER, SELFPAY ==
--- NOTE | 2024-08-23 11:34 | A.OFFPC_ITS ---
Vital Signs 08/23/24 11:39 Height 5 ft 2 in Weight 288 lb BMI 52.7 BP 94/50 L Blood Pressure Location Lt brachial Position Sitting Respiration 18 Pulse 100 Pulse Source Pulse Oximeter Temp 97.8 F Temp Source Oral Pulse Oximetry (%) 92 Oxygen Delivery Method Room Air Intake Visit Reasons: Breathing issue Intake Note: Sob, worse the past two weeks. Wound doctor recommended Dexcom G7, endocrinology referral, and continuous glucose monitor. 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 Allergies No Known Allergies Allergy (Verified 08/23/24 11:35) Medication List - Last Reconciled 08/27/24 by Meera Couch MD acetaminophen mg PO albuterol sulfate 90 mcg/actuation (Ventolin HFA) 2 puffs inhalation Q4-6H PRN 30 days aripiprazole 5 mg PO BEDTIME 90 days buprenorphine-naloxone 8-2 mg (Suboxone) 1 film buccal Q24H doxycycline hyclate 100 mg PO BID FreeStyle Lancets (lancets) once daily NS FreeStyle Lite Meter (blood-glucose meter) blood glucose monitoring NS FreeStyle Lite Strips (blood sugar diagnostic) once daily NS furosemide 10 mg (1/2 x 20 mg) PO QAM PRN 30 days gabapentin 300 mg PO TID 30 days glipizide ER 20 mg (2 x 10 mg) PO QAM 90 days insulin glargine (Lantus Solostar U-100 Insulin) 16 units (0.16 mL) subcut QPM meloxicam 15 mg PO DAILY 30 days metformin 1,000 mg PO BID nicotine 1 patch topical DAILY pen needle, diabetic (BD Ultra-Fine Mini Pen Needle) Daily, As directed. 90 days pioglitazone 30 mg PO DAILY prednisone 40 mg (2 x 20 mg) PO DAILY propranolol 10 mg PO BID trazodone 100 mg (2 x 50 mg) PO BEDTIME PRN Tobacco use date assessed: 08/12/24 Dental Screening Dental Screen Date: 08/12/24 HPI HPI Comments History of Present Illness Details The patient is a 43 year old female with a past medical history of type 2 diabetes, Right lower extremity wound, h/o opioid dependence, bipolar disorder presenting for asthma exacerbation Reports increased wheezing, cough for the past one week. Denies fevers. Some shortness of breath Diabetes: Interested in GM. She is on Metformin 1000mg twice daily. Glipizide 20mg daily, Actos, Lantus 16 units A1C 6.4%, last A1C 9.6%. Interested in CGM Micro/macrovascular complications: Right lower extremity wound with delayed healing-following with wound care-[place] every thursday. She is on suboxone- gets this in [place] . [facility] wound care. BH: Bipolar disorder, anxiety. Endorses extreme social anxiety, poor sleep- recently started on low dose propranolol. She is currently prescribed abilify. Not following with psychiatry. ROS see HPI PHYSICAL EXAM: GENERAL: Alert and oriented x 3. NAD EYES: EOMI. Anicteric. HENT: Moist mucous membranes. LUNGS: Clear to auscultation bilaterally. CARDIOVASCULAR: Regular rate and rhythm. ABDOMEN: Soft, non-tender +bs EXTREMITIES: Right lower extremity is bandaged, no purulence SKIN: No rashes or lesions. Warm. NEUROLOGIC: No focal neurological deficits. CN II-XII grossly intact PSYCHIATRIC: Cooperative. Teary, in pain PFSH Medical History Depression Anxiety COPD (chronic obstructive pulmonary disease) Surgical History H/O skin graft History of surgery on lower extremity S/P hernia surgery H/O tubal ligation Family History Mother Asthma High blood pressure High cholesterol Diabetes Cervical cancer Cardiovascular disease Father Asthma High blood pressure High cholesterol Diabetes Alcoholism Cardiovascular disease Maternal Grandmother Asthma Alcoholism Cardiovascular disease Diabetes High cholesterol High blood pressure Other FH: mental illness Substance abuse Social History Housing: House Alcohol intake: current Alcohol intake frequency: holidays/special occasions only Patient Tobacco Use Status: Current everyday Tobacco user Cigarette Packs Per Day: 0.5 Years Smoked: 28 e-Cigarette/Vaping Use: Never Used Substance Use Type: Marijuana service: No Current occupational status: disabled Cognitive needs: No Hearing needs: No Vision needs: Yes (Patient wears glasses) Questionnaire Thrive Questionnaire Date Thrive assessed: 06/27/24 I am a: Patient What is your living situation today?: I have a steady place to live Within the past 12 months, did the food you bought not last and you didn't have the money to get more?: I choose not to answer this question Within the past 12 months, did you worry whether your food would run out before you got money to buy more?: I choose not to answer this question Do you have trouble paying for medicines?: I choose not to answer this question Do you have trouble getting transportation to medical appointments?: I choose not to answer this question Do you have trouble paying your heating and electricity bill?: I choose not to answer this question Do you have trouble taking care of your child, family member or friend?: I choose not to answer this question Do you have trouble with day-to-day activities such as bathing, preparing meals, shopping, managing finances, etc.?: I choose not to answer this question Are you currently unemployed and looking for a job?: I choose not to answer this question Are you interested in more education?: I choose not to answer this question Please select the resources that you would like help with: None Currently or been in a relationship where the following occur: I choose not to answer THRIVE Score: 0 KRYSTA-7 AMB Questionnaire KRYSTA-7 Date KRYSTA - 7 assessed: 12/03/23 Source: Developed by Drs. Jian Smith, Lucinda Del Rio, Rahul Leung and colleagues, with an educational ju from [employer]. Physical exam (Primary Care) Vital Signs: Last Vital Signs Temp 97.8 F 08/23/24 11:39 Pulse 100 08/23/24 11:39 Resp 18 08/23/24 11:39 BP 94/50 L 08/23/24 11:39 Pulse Ox 92 08/23/24 11:39 Oxygen Delivery Method Room Air 08/23/24 11:39 BMI result Body Mass Index 52.7 Tobacco/Smoking Status: Tobacco use Status Tobacco use date assessed 08/12/24 08/23/24 11:45 Patient Tobacco Use Status Current everyday Tobacco 08/23/24 11:45 e-Cigarette/Vaping Use Never Used 08/23/24 11:45 Thrive Assessment: Date of Thrive Assessment Date Thrive assessed 06/27/24 08/23/24 11:45 Currently or been in a relationship where the following occur: I choose not to answer Coding Level of Care Code Est Pt Level 4 (36863) Diagnoses Chronic obstructive pulmonary disease with acute exacerbation J44.1 COPD type: COPD with acute exacerbation Type 2 diabetes mellitus with hyperglycemia, without long-term current use of insulin E11.65 Diabetes mellitus vermin exterminator insulin use: without halfway use Assessment & Plan Assessment & Plan (1) COPD (chronic obstructive pulmonary disease): Code(s): J44.9 - Chronic obstructive pulmonary disease, unspecified Category: Medical Qualifiers: COPD type: COPD with acute exacerbation Qualified Code(s): J44.1 - Chronic obstructive pulmonary disease with (acute) exacerbation Plan: Doxycycline & prednisone sent Call for persistent or worsening symptoms Recommend tobacco cessation (2) Type 2 diabetes mellitus with hyperglycemia: Code(s): E11.65 - Type 2 diabetes mellitus with hyperglycemia Category: Medical Qualifiers: Diabetes mellitus vermin exterminator insulin use: without vermin exterminator use Qualified Code(s): E11.65 - Type 2 diabetes mellitus with hyperglycemia Plan: controlled CGM ordered Medications: New prednisone 40 mg (2 x 20 mg) PO DAILY 10 tabs 0RF FreeStyle Emmett 3 Plus Sensor (blood-glucose sensor) every 15 days 1 ea 0RF NS E11.65 - Type 2 diabetes mellitus with hyperglycemia, 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
[2024-08-23 11:39] VITALS: BP 94/50; PULSE 100; RESP 18; TEMP 36.6; O2SAT 92; BMI 52.7
== END 2024-08-23 14:06 | disposition home or self-care (01) ==
LOC: HO.HMCFM 11:24
PROVIDERS: PCP Internal Medicine; Visit Provider Internal Medicine
DX: J44.1 Chronic obstructive pulmonary disease with (acute) exacerbation (principal); E11.65 Type 2 diabetes mellitus with hyperglycemia

== ENCOUNTER → 2024-08-23 11:23 | Outpatient (BNVA) | payer OTHER, SELFPAY | PROVIDERS: PCP Internal Medicine; Visit Provider Internal Medicine | DX: J44.1 Chronic obstructive pulmonary disease with (acute) exacerbation (principal); E11.65 Type 2 diabetes mellitus with hyperglycemia | CPT/HCPCS: 99212 ==

== ENCOUNTER → 2024-10-11 23:59 | Outpatient (BNV) | payer OTHER, SELFPAY | PROVIDERS: PCP Internal Medicine; Visit Provider Internal Medicine | DX: L97.812 Non-pressure chronic ulcer of other part of right lower leg with fat layer exposed (principal); L03.115 Cellulitis of right lower limb; I87.2 Venous insufficiency (chronic) (peripheral) | CPT/HCPCS: G0179 ==

== ENCOUNTER 2024-11-15 08:08 | Outpatient (AMB) | payer OTHER, SELFPAY ==
--- NOTE | 2024-11-15 08:12 | A.OFFPC_ITS ---
Vital Signs 11/15/24 08:19 Height 5 ft 2 in Weight 288 lb 3 oz BMI 52.7 BP 130/84 Blood Pressure Location Rt brachial Position Sitting Pulse 73 Pulse Source Pulse Oximeter Temp 98.6 F Temp Source Temporal Artery Scan Pulse Oximetry (%) 93 Oxygen Delivery Method Room Air Intake Visit Reasons: DM Intake Note: Jennifer presents in the office today for a follow up to her diabetes and medication check in. Allergies No Known Allergies Allergy (Verified 11/15/24 08:15) Tobacco use date assessed: 11/15/24 Dental Screening Dental Screen Date: 11/15/24 Did you have a dental visit in the last 12 months?: No Did you have a dental problem in the last 6 months where you did not have access to dental care?: No Was dental information given to patient?: No HPI HPI Comments History of Present Illness Details The patient is a 43 year old female with a past medical history of type 2 diabetes, Right lower extremity wound, h/o opioid dependence, bipolar disorder presenting for follow up Diabetes: She is on Metformin 1000mg twice daily. Glipizide 20mg daily, Actos, Lantus 16 units A1C 6.0%. Wants to come off insulin citing frequent hypoglycemia. Increase b/l leg pain which she attributes to low back pain Micro/macrovascular complications: Right lower extremity wound with delayed healing-following with wound care-[facility] every thursday. She is on suboxone- gets this in [place] [facility]. BH: Bipolar disorder, anxiety. Endorses extreme social anxiety, poor sleep- recently started on low dose propranolol. She is currently prescribed abilify. Not following with psychiatry. ROS see HPI PHYSICAL EXAM: GENERAL: Alert and oriented x 3. NAD EYES: EOMI. Anicteric. HENT: Moist mucous membranes. LUNGS: Clear to auscultation bilaterally. CARDIOVASCULAR: Regular rate and rhythm. ABDOMEN: Soft, non-tender +bs EXTREMITIES: Right lower extremity is bandaged, no purulence SKIN: No rashes or lesions. Warm. NEUROLOGIC: No focal neurological deficits. CN II-XII grossly intact PSYCHIATRIC: Cooperative. Anxious [facility] Medical History Depression Anxiety COPD (chronic obstructive pulmonary disease) Surgical History H/O skin graft History of surgery on lower extremity S/P hernia surgery H/O tubal ligation Family History Mother Asthma High blood pressure High cholesterol Diabetes Cervical cancer Cardiovascular disease Father Asthma High blood pressure High cholesterol Diabetes Alcoholism Cardiovascular disease Maternal Grandmother Asthma Alcoholism Cardiovascular disease Diabetes High cholesterol High blood pressure Other FH: mental illness Substance abuse Social History (Updated 11/15/24 @ 08:18 by Anamika Aguero MA) Housing: House Alcohol intake: current Alcohol intake frequency: holidays/special occasions only Patient Tobacco Use Status: Current everyday Tobacco user Cigarette Packs Per Day: 0.5 Years Smoked: 28 e-Cigarette/Vaping Use: Never Used Second Hand Smoke Exposure: Yes Substance Use Type: Marijuana service: No Current occupational status: disabled Cognitive needs: No Hearing needs: No Vision needs: Yes (Patient wears glasses) Questionnaire Thrive Questionnaire Date Thrive assessed: 06/27/24 I am a: Patient What is your living situation today?: I have a steady place to live Within the past 12 months, did the food you bought not last and you didn't have the money to get more?: I choose not to answer this question Within the past 12 months, did you worry whether your food would run out before you got money to buy more?: I choose not to answer this question Do you have trouble paying for medicines?: I choose not to answer this question Do you have trouble getting transportation to medical appointments?: I choose not to answer this question Do you have trouble paying your heating and electricity bill?: I choose not to answer this question Do you have trouble taking care of your child, family member or friend?: I choose not to answer this question Do you have trouble with day-to-day activities such as bathing, preparing meals, shopping, managing finances, etc.?: I choose not to answer this question Are you currently unemployed and looking for a job?: I choose not to answer this question Are you interested in more education?: I choose not to answer this question Please select the resources that you would like help with: None Currently or been in a relationship where the following occur: I choose not to answer THRIVE Score: 0 KRYSTA-7 AMB Questionnaire KRYSTA-7 Date KRYSTA - 7 assessed: 12/03/23 Source: Developed by Drs. Jian Smith, Lucinda Del Rio, Rahul Leung and colleagues, with an educational ju from [employer]. Physical exam (Primary Care) Vital Signs: Last Vital Signs Temp 98.6 F 11/15/24 08:19 Pulse 73 11/15/24 08:19 BP 130/84 11/15/24 08:19 Pulse Ox 93 11/15/24 08:19 Oxygen Delivery Method Room Air 11/15/24 08:19 BMI result Body Mass Index 52.7 Tobacco/Smoking Status: Tobacco use Status Tobacco use date assessed 11/15/24 11/15/24 08:18 Patient Tobacco Use Status Current everyday Tobacco 11/15/24 08:18 e-Cigarette/Vaping Use Never Used 11/15/24 08:18 Thrive Assessment: Date of Thrive Assessment Date Thrive assessed 06/27/24 11/15/24 08:14 Currently or been in a relationship where the following occur: I choose not to answer Results AMB Hemoglobin A1c AMB Hemoglobin A1c 6.0 % Last Edit by Anamika Aguero MA on 11/15/24 08:50 Results Reviewed Results Reviewed: Laboratory Last Values Hgb A1c (Clinic) 6.0 % (4.0-6.0) 11/15/24 08:25 Coding Level of Care Code Est Pt Level 4 (10234) Diagnoses Type 2 diabetes mellitus with hyperglycemia, without long-term current use of insulin E11.65 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: without care home use Lumbar radiculopathy M54.16 Lower extremity edema R60.0 Chronic obstructive pulmonary disease with acute exacerbation J44.1 COPD type: COPD with acute exacerbation Bipolar disorder in partial remission, most recent episode unspecified type F31.70 Active/Remission status: in partial remission Most recent bipolar episode type: unspecified type Assessment & Plan Assessment & Plan (1) Type 2 diabetes mellitus with hyperglycemia: Code(s): E11.65 - Type 2 diabetes mellitus with hyperglycemia Category: Medical Qualifiers: 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: without intermediate school teacher use Qualified Code(s): E11.65 - Type 2 diabetes mellitus with hyperglycemia (2) Lumbar radiculopathy: Code(s): M54.16 - Radiculopathy, lumbar region Category: Medical (3) Lower extremity edema: Code(s): R60.0 - Localized edema Category: Medical (4) COPD (chronic obstructive pulmonary disease): Code(s): J44.9 - Chronic obstructive pulmonary disease, unspecified Category: Medical Qualifiers: COPD type: COPD with acute exacerbation Qualified Code(s): J44.1 - Chronic obstructive pulmonary disease with (acute) exacerbation (5) Bipolar disorder: Code(s): F31.9 - Bipolar disorder, unspecified Category: Medical Qualifiers: Active/Remission status: in partial remission Most recent bipolar episode type: unspecified type Qualified Code(s): F31.70 - Bipolar disorder, currently in remission, most recent episode unspecified Plan DM-well controlled. She can come off the insulin and monitor blood glucose Sciatica-xray lumbar spine ordered Anxiety suboptimal control-start prozac. continue abilify Orders: Orders XR lumbar spine 2-3V Today M54.16 - Radiculopathy, lumbar region AMB Hemoglobin A1c Today E11.65 - Type 2 diabetes mellitus with hyperglycemia Medications: New fluoxetine 20 mg PO DAILY 90 tabs 3RF fluticasone propion-salmeterol 500-50 mcg/dose (Advair Diskus) 1 inh inhalation BID 3 ea 3RF Discontinued insulin glargine (Lantus Solostar U-100 Insulin) Discontinued Reason: Doctor's Order 16 units (0.16 mL) subcut QPM 30 mL 3RF
[2024-11-15 08:19] VITALS: BP 130/84; PULSE 73; TEMP 37; O2SAT 93; BMI 52.7
== END 2024-11-15 08:36 | disposition home or self-care (01) ==
LOC: HO.HMCFM 08:08
PROVIDERS: PCP Internal Medicine; Visit Provider Internal Medicine
DX: E11.65 Type 2 diabetes mellitus with hyperglycemia (principal); M54.16 Radiculopathy, lumbar region; R60.0 Localized edema; J44.1 Chronic obstructive pulmonary disease with (acute) exacerbation; F31.70 Bipolar disorder, currently in remission, most recent episode unspecified

== ENCOUNTER → 2024-11-15 08:08 | Outpatient (BNVA) | payer OTHER, SELFPAY | PROVIDERS: PCP Internal Medicine; Visit Provider Internal Medicine | DX: E11.65 Type 2 diabetes mellitus with hyperglycemia (principal); M54.16 Radiculopathy, lumbar region; R60.0 Localized edema; F41.9 Anxiety disorder, unspecified; J44.1 Chronic obstructive pulmonary disease with (acute) exacerbation; F31.70 Bipolar disorder, currently in remission, most recent episode unspecified; F17.210 Nicotine dependence, cigarettes, uncomplicated; Z79.84 Long term (current) use of oral hypoglycemic drugs; Z79.4 Long term (current) use of insulin | CPT/HCPCS: 83036; 99212 ==

== ENCOUNTER 2024-11-24 08:44 | Outpatient (REF) | payer OTHER, SELFPAY ==
--- NOTE | ~2024-11-24 | XR_ITS ---
EXAMINATION: XR LUMBOSACRAL SPINE CLINICAL INFORMATION: M54.16 - Radiculopathy, lumbar region COMPARISON: October 19, 2018. TECHNIQUE: Three views of the lumbosacral spine. FINDINGS: There is probable lucent line at the pars interarticularis of L5-S1. There is no gross malalignment/listhesis. There is biconcave morphology of the endplates at L4-5 and L5-S1. No lytic or blastic lesions. No acute cortical disruption. Vascular clips right upper quadrant abdomen and likely laparoscopic cholecystectomy. S-shaped curvature of the thoracolumbar spine which could be positional. 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 Spondylosis, mild, L4-5 and L5-S1. Electronically signed by: Juan Francisco Villarreal MD 11/24/2024 09:16 AM EDT
== END 2024-11-24 08:45 | disposition home or self-care (01) ==
LOC: HO.HMGCX 08:44
PROVIDERS: PCP Internal Medicine; Visit Provider Internal Medicine
DX: M54.16 Radiculopathy, lumbar region (principal)
CPT/HCPCS: 72100

== ENCOUNTER → 2024-11-24 08:51 | Outpatient (BNV) | payer OTHER, SELFPAY | PROVIDERS: PCP Internal Medicine; Visit Provider Radiology Diagnostic Radiology | DX: M54.16 Radiculopathy, lumbar region (principal) | CPT/HCPCS: 72100 ==

== ENCOUNTER 2025-01-09 08:31 | Outpatient (AMB) | payer OTHER, SELFPAY ==
[2025-01-09 08:42] VITALS: BP 108/60; PULSE 70; TEMP 36.7; O2SAT 97; BMI 53.6
--- NOTE | 2025-01-09 08:42 | AM.OFFWIN_ITS ---
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 Reports scratching her Lower Leg on Wooden Cabinet ~ 1 week ago. Denies Fevers, chills, nausea or vomiting. [facility] Medical History (Updated 01/09/25 @ 09:09 by Keisha Do NP) Cellulitis of skin Depression Anxiety COPD (chronic obstructive pulmonary disease) Surgical History H/O skin graft History of surgery on lower extremity S/P hernia surgery H/O tubal ligation Family History Mother Asthma High blood pressure High cholesterol Diabetes Cervical cancer Cardiovascular disease Father Asthma High blood pressure High cholesterol Diabetes Alcoholism Cardiovascular disease Maternal Grandmother Asthma Alcoholism Cardiovascular disease Diabetes High cholesterol High blood pressure Other FH: mental illness Substance abuse Social History (Updated 11/15/24 @ 08:18 by Anamika Aguero MA) Housing: House Alcohol intake: current Alcohol intake frequency: holidays/special occasions only Patient Tobacco Use Status: Current everyday Tobacco user Cigarette Packs Per Day: 0.5 Years Smoked: 28 e-Cigarette/Vaping Use: Never Used Second Hand Smoke Exposure: Yes Substance Use Type: Marijuana Patient : No service: No Current occupational status: disabled Cognitive needs: No Hearing needs: No Vision needs: Yes (Patient wears glasses) Female Reproductive History Menstrual Date of last menstrual period: 11/28/24 Review of Systems Const All systems reviewed & are unremarkable except as noted in HPI and below Physical Exam Vital Signs: Last Vital Signs Temp 98.0 F 01/09/25 08:42 Pulse 70 01/09/25 08:42 BP 108/60 01/09/25 08:42 Pulse Ox 97 01/09/25 08:42 Oxygen Delivery Method Room Air 01/09/25 08:42 BMI result Body Mass Index 53.6 Const General: no acute distress Nutritional Appearance: obese Orientation/consciousness: patient oriented x3 Neuro General: patient oriented x3, gait normal and moves all extremities Extrem Left lower extremity: lower leg Details: erythema, tenderness and pitting edema Details: 2+ Ankle/foot/toe images: 2 1. Erythematous +2 pitting Edema, TTP and oozing clear fluid. Assessment & Plan Assessment & Plan (1) Cellulitis of skin: Code(s): L03.90 - Cellulitis, unspecified Plan: Ordered Keflex for 7 days Elevate Lower Extremities Keep skin dry and clean. Medications: New 2 cephalexin 500 mg PO BID 14 caps 0RF 7 days L03.90 - Cellulitis, unspecified Coding Level of Care Code Est Pt Level 4 (30773) Diagnoses Cellulitis of skin L03.90 Time Spent (min) 20
--- OUTSIDE RECORDS SUMMARY | 2025-01-09 08:47 | XMS_ITS | Patient Health Record ---
Author Organization [facility] Address [address] [facility] [place] [address] Care Team Providers Care Product Assurance Engineer Name Role Phone Christopher Ramires Primary Care Provider Unavailab Christopher Garcia Unavailable [phone] Lucía Hyde Unavailable [phone] Melanie Yoon Unavailable [phone] Allergies No Known Allergies Reason For Referral No Information Medications Medication SIG (Take, Route, Frequency, Duration) Notes Start Date End Date Status Gabapentin 100 MG 1 capsule Orally Onc e a day; Duration: 30 day(s) Active Acetaminophen 500 MG 1 capsule as needed Orally every 6 hrs Active ARIPiprazole 5 MG 1 tablet Orally Once a day; Duration: 30 day(s) Active Morphine Sulfate 15 MG 1 tablet as neede d Orally every 4 hrs Unknown Suboxone 12-3 MG 1 film under the ton varun and allow to dissolve Sublingual Once a day Active Meloxicam 15 MG 1 tablet Orally Once a day; Duration: 30 day(s) Active Albuterol Sulfate 108 (90 Base) MCG/ACT 1 puff as needed Inhalation every 4 hrs Active metFORMIN HCl 500 MG 1 tablet with a poly l Orally Once a day; Duration: 30 day(s) Active Dakins (1/4 strength) 0.125 % 1 application Externally Once a day; Duration: 30 days Active Problems Problem Type SNOMED Code ICD Code Onset Dates Problem Status W/U Status Risk Notes Problem Skin ulcer associated with diabetes mellitus (087432320) Type 2 diabetes mellitus with other skin ulcer (E11.622) Active confirmed Problem Morbid obesity (disorder) (855552564) Morbid (severe) obesity due to excess calories (E66.01) Active confirmed Problem Tobacco user (162908766) Nicotine dependence, cigarettes, uncomplicated (F17.210) Active confirmed Problem Pyoderma gangrenosum (87034185) Pyoderma gangrenosum (L88) Active confirmed Problem Chronic non-pressure ulcer of calf extending to fat level (2903629841768257 1) 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) Active confirmed Problem Noncompliance with treatment (finding) (9196869) Patient's noncompliance with other medical treatment and regimen for other reason (Z91.198) Active confirmed Vital Signs Heart Rate 84 /min 10/04/2024 Temperature 98.0 degrees Fahrenheit 10/04/2024 Respiratory Rate 18 /min 10/04/2024 Blood pressure diastolic 78 mm Hg 10/04/2024 Oximetry 95 % 10/04/2024 Weight-kg 113.4 kg 10/04/2024 Height 62 in 10/04/2024 Blood pressure systolic 124 mm Hg 10/04/2024 Weight 250 lbs 10/04/2024 BMI 45.72 kg/m2 10/04/2024 Encounters Encounter Location Date Provider Diagnosis [facility] [address] [address] 03/15/2024 Jooyun Yoon Non-pressure chronic ulcer of other part of right lower leg with fat layer exposed L97.812 ; Pyoderma gangrenosum L88 ; Type 2 diabetes mellitus with other skin ulcer E11.622 ; Morbid (severe) obesity due to excess calories E66.01 ; Nicotine dependence, cigarettes, uncomplicated F17.210 and Pain in right lower leg M79.661 [facility] [address] [address] 08/02/2024 Christopher Stephenson Non-pressure chronic ulcer of other part of right lower leg with fat layer exposed L97.812 ; Pyoderma gangrenosum L88 ; Type 2 diabetes mellitus with other skin ulcer E11.622 ; Morbid (severe) obesity due to excess calories E66.01 ; Nicotine dependence, cigarettes, uncomplicated F17.210 and Patient's noncompliance with other medical treatment and regimen for other reason Z91.198 [facility] [address] [address] 08/09/2024 Christopher Stephenson Non-pressure chronic ulcer of other part of right lower leg with fat layer exposed L97.812 ; Pyoderma gangrenosum L88 ; Type 2 diabetes mellitus with other skin ulcer E11.622 ; Morbid (severe) obesity due to excess calories E66.01 ; Nicotine dependence, cigarettes, uncomplicated F17.210 and Patient's noncompliance with other medical treatment and regimen for other reason Z91.198 [facility] [address] [address] 08/16/2024 Christopher Seema Non-pressure chronic ulcer of other part of right lower leg with fat layer exposed L97.812 ; Pyoderma gangrenosum L88 ; Type 2 diabetes mellitus with other skin ulcer E11.622 ; Morbid (severe) obesity due to excess calories E66.01 ; Nicotine dependence, cigarettes, uncomplicated F17.210 and Patient's noncompliance with other medical treatment and regimen for other reason Z91.198 [place] [address] [address] 08/23/2024 Christopher Seema Non-pressure chronic ulcer of other part of right lower leg with fat layer exposed L97.812 ; Pyoderma gangrenosum L88 ; Type 2 diabetes mellitus with other skin ulcer E11.622 ; Morbid (severe) obesity due to excess calories E66.01 ; Nicotine dependence, cigarettes, uncomplicated F17.210 and Patient's noncompliance with other medical treatment and regimen for other reason Z91.198 [facility] [address] [address] 08/30/2024 Christopher Sotonne Non-pressure chronic ulcer of other part of right lower leg with fat layer exposed L97.812 ; Pyoderma gangrenosum L88 ; Type 2 diabetes mellitus with other skin ulcer E11.622 ; Morbid (severe) obesity due to excess calories E66.01 ; Nicotine dependence, cigarettes, uncomplicated F17.210 and Patient's noncompliance with other medical treatment and regimen for other reason Z91.198 [facility] [address] [address] 09/06/2024 Christopher Seema Non-pressure chronic ulcer of other part of right lower leg with fat layer exposed L97.812 ; Pyoderma gangrenosum L88 ; Type 2 diabetes mellitus with other skin ulcer E11.622 ; Morbid (severe) obesity due to excess calories E66.01 ; Nicotine dependence, cigarettes, uncomplicated F17.210 and Patient's noncompliance with other medical treatment and regimen for other reason Z91.198 [facility] [address] [address] 09/13/2024 Christopher Stephenson Non-pressure chronic ulcer of other part of right lower leg with fat layer exposed L97.812 ; Pyoderma gangrenosum L88 ; Morbid (severe) obesity due to excess calories E66.01 ; Nicotine dependence, cigarettes, uncomplicated F17.210 and Patient's noncompliance with other medical treatment and regimen for other reason Z91.198 [place] [address] [address] 09/20/2024 Anzhela Savonina Non-pressure chronic ulcer of other part of right lower leg with fat layer exposed L97.812 ; Pyoderma gangrenosum L88 ; Blister (nonthermal), right lower leg, initial encounter S80.821A ; Morbid (severe) obesity due to excess calories E66.01 ; Nicotine dependence, cigarettes, uncomplicated F17.210 and Patient's noncompliance with other medical treatment and regimen for other reason Z91.198 [place] [address] [address] 09/27/2024 Anzhela Savonina Non-pressure chronic ulcer of other part of right lower leg with fat layer exposed L97.812 ; Pyoderma gangrenosum L88 ; Morbid (severe) obesity due to excess calories E66.01 ; Nicotine dependence, cigarettes, uncomplicated F17.210 and Patient's noncompliance with other medical treatment and regimen for other reason Z91.198 [facility] [address] [address] 10/04/2024 Anzhela Savonina Non-pressure chronic ulcer of other part of right lower leg with fat layer exposed L97.812 ; Pyoderma gangrenosum L88 ; Morbid (severe) obesity due to excess calories E66.01 ; Nicotine dependence, cigarettes, uncomplicated F17.210 and Patient's noncompliance with other medical treatment and regimen for other reason Z91.198 [facility] [address] [address] 03/16/2024 Melanie Yoon [facility] [address] [address] 08/08/2024 Christopher Stephenson [facility] [address] [address] 08/16/2024 Christopher Stephenson [facility] [address] [address] 08/23/2024 Christopher Stephenson Assessments Encounter Date Diagnosis (ICD Code) Assessment Notes Treatment Notes Treatment Clinical Notes Section Notes 03/15/2024 Pyoderma gangrenosum (ICD-10 - L88) On exam, hypertensive and tachycardiac most likely due to pain, asymptomatic, afebrile, non-ill appearing, tearful. I removed the dressing and examined the wound located on the right posterior leg covering most posterior calf. Wound has area of slough, surrounding mild erythema, no warm, no purulence, but has mild odor. No debridement performed due to pathergy and pain. I cleaned the wound with saline and HFB applied to the wound bed, zinc to periwound secured with dsd. Jennifer presents today for follow up on the left posterior calf found to be pyoderma gangrenosum on biopsy, underlying DM and current smoker. Advised patient to continue to use Clobetasol to the wound to be applied daily. Dermatology appointment was cancelled and she will call this week to reschedule. I discussed smoking cessation; she is trying to cut back. She is also working with her pcp to get her diabetes in better control. May consider a short course of Prednisone if wound does not progress to healing. Will need to collaborate with dermatology for treatment of this complicated ulcer. Unable to obtain ABIs today due to pain and location of the ulcer. She will return in 1 week for a follow up visit. I spent 30 minutes of direct and indirect care of this patient reviewing records, gathering H&P, evaluation, formulating plan, education and documentation. I Melanie Yoon, [employer] RO[employer] SUPERVISOR-, examined, evaluated and treated the patient. Dr. Fransisco Alan was available for any question or concerns that I may have had. 03/15/2024 Non-pressure chronic ulcer of other part of right lower leg with fat layer exposed (ICD-10 - L97.812) 08/02/2024 Pyoderma gangrenosum (ICD-10 - L88) 08/02/2024 Non-pressure chronic ulcer of other part of right lower leg with fat layer exposed (ICD-10 - L97.812) 08/09/2024 Non-pressure chronic ulcer of other part of right lower leg with fat layer exposed (ICD-10 - L97.812) 08/16/2024 Non-pressure chronic ulcer of other part of right lower leg with fat layer exposed (ICD-10 - L97.812) 08/23/2024 Non-pressure chronic ulcer of other part of right lower leg with fat layer exposed (ICD-10 - L97.812) 08/30/2024 Non-pressure chronic ulcer of other part of right lower leg with fat layer exposed (ICD-10 - L97.812) 09/06/2024 Non-pressure chronic ulcer of other part of right lower leg with fat layer exposed (ICD-10 - L97.812) 09/13/2024 Pyoderma gangrenosum (ICD-10 - L88) 09/13/2024 Non-pressure chronic ulcer of other part of right lower leg with fat layer exposed (ICD-10 - L97.812) 09/20/2024 Pyoderma gangrenosum (ICD-10 - L88) on exam, vital signs stable, afebrile, non-ill appearing. I removed the dressing and examined the wound located on the right calf. Wound is improving with epithelial tissue within the wound bed. There is no surrounding erythema, no purulence, no odor. There is a new intact blister with a ruptured blister distal. No debridement performed today due to pathergy. Wounds were cleaned with Dakins, rinsed with saline and HFB was applied to the right posterior leg wound and xeroform to the blister. Tubigrip applied to the right leg. Jennifer presents today for a follow up visit. The original pyoderma wound is gradually improving, continue with current treatment as above. There is a new blistered area on the right anterior upper yoon. Apply Xeroform to the wound daily. She will continue with Tubigrip for compression daily and encouraged leg elevation. She will return in 1 week for a follow up visit. I Anzhela Savonina S[employer] ROOM SUPERVISOR-C, examined, evaluated and treated the patient. Dr. Fransisco Alan was available for any question or concerns that I may have had. 09/20/2024 Non-pressure chronic ulcer of other part of right lower leg with fat layer exposed (ICD-10 - L97.812) 09/27/2024 Pyoderma gangrenosum (ICD-10 - L88) on exam, vital signs stable, afebrile, non-ill appearing. I removed the dressing and examined the wound located on the right calf. Wound is improving with epithelial tissue within the wound bed and measuring smaller. There is no surrounding erythema, no purulence, no odor. The right anterior previous blister is now covered with a dry scab. No debridement performed due to pathergy of pyoderma ulcers. Wound was cleaned with Dakins, rinsed with saline and Xeroform was applied to the right posterior leg wound. Tubigrip applied to the right leg. Jennifer presents today for a follow up visit. The original pyoderma wound is gradually improving, continue with current treatment as above. Clean area with Dakins, apply Xeroform to the wound daily. She will continue with Tubigrip for compression daily and encouraged leg elevation. She will return in 1 week for a follow up visit. Maurizio CASTELLANO, examined, evaluated and treated the patient. Dr. Fransisco Alan was available for any question or concerns that I may have had. 09/27/2024 Non-pressure chronic ulcer of other part of right lower leg with fat layer exposed (ICD-10 - L97.812) 10/04/2024 Non-pressure chronic ulcer of other part of right lower leg with fat layer exposed (ICD-10 - L97.812) 09/06/2024 Pyoderma gangrenosum (ICD-10 - L88) 10/04/2024 Pyoderma gangrenosum (ICD-10 - L88) on exam, vital signs stable, afebrile, non-ill appearing. I removed the dressing and examined the wound located on the right calf. Wound has re-epithelialized, no drainage, no periwound erythema. The skin is thick with grooves, dry scaly skin. I recommended washing her legs daily with soap and water, applying skin moisturizer daily to legs. Continue to use compression stockings to reduce edema and elevate legs. She does not need any further follow up. Thank you for allowing us to participate in your care. I Lucía CASTELLANO, examined, evaluated and treated the patient. Dr. Fransisco Alan was available for any question or concerns that I may have had. 09/27/2024 Morbid (severe) obesity due to excess calories (ICD-10 - E66.01) 09/20/2024 Blister (nonthermal), right lower leg, initial encounter (ICD-10 - S80.821A) 09/13/2024 Morbid (severe) obesity due to excess calories (ICD-10 - E66.01) 08/23/2024 Pyoderma gangrenosum (ICD-10 - L88) 08/30/2024 Pyoderma gangrenosum (ICD-10 - L88) 08/09/2024 Pyoderma gangrenosum (ICD-10 - L88) 08/16/2024 Pyoderma gangrenosum (ICD-10 - L88) 08/02/2024 Type 2 diabetes mellitus with other skin ulcer (ICD-10 - E11.622) 03/15/2024 Type 2 diabetes mellitus with other skin ulcer (ICD-10 - E11.622) 03/15/2024 Morbid (severe) obesity due to excess calories (ICD-10 - E66.01) 08/02/2024 Morbid (severe) obesity due to excess calories (ICD-10 - E66.01) 08/16/2024 Type 2 diabetes mellitus with other skin ulcer (ICD-10 - E11.622) 08/09/2024 Type 2 diabetes mellitus with other skin ulcer (ICD-10 - E11.622) 09/06/2024 Type 2 diabetes mellitus with other skin ulcer (ICD-10 - E11.622) the below information is reviewed at each visit: Patient educated on importance of glycemic control and impact on wound healing. Reviewed poorly managed hyperglycemia and chronic systemic changes will cause significant delays in wound healing. Optimal DM control-goal for A1c to be less than 8% and/or average blood glucose to be less than 200mg/dl to support healing. Follow up with editor managing newspaper for optimal glycemic control and wound healing outcomes 08/30/2024 Type 2 diabetes mellitus with other skin ulcer (ICD-10 - E11.622) the below information is reviewed at each visit: Patient educated on importance of glycemic control and impact on wound healing. Reviewed poorly managed hyperglycemia and chronic systemic changes will cause significant delays in wound healing. Optimal DM control-goal for A1c to be less than 8% and/or average blood glucose to be less than 200mg/dl to support healing. Follow up with editor managing newspaper for optimal glycemic control and wound healing outcomes 08/23/2024 Type 2 diabetes mellitus with other skin ulcer (ICD-10 - E11.622) the below information is reviewed at each visit: Patient educated on importance of glycemic control and impact on wound healing. Reviewed poorly managed hyperglycemia and chronic systemic changes will cause significant delays in wound healing. Optimal DM control-goal for A1c to be less than 8% and/or average blood glucose to be less than 200mg/dl to support healing. Follow up with editor managing newspaper for optimal glycemic control and wound healing outcomes 09/13/2024 Nicotine dependence, cigarettes, uncomplicated (ICD-10 - F17.210) The below smoking cessation education is reviewed at each visit: Quitting smoking can dramatically improve your health and help you live longer. It lowers your risk of heart disease, lung disease, kidney failure, cancer, infection, stomach problems, and diabetes. Quitting smoking can also lower your chances of getting osteoporosis, a condition that makes your bones weak. Quitting is not easy for most people. It might take several tries to completely quit. But help and support are available. Quitting smoking will improve your health no matter how old you are, even if you have smoked for a long time. It's a good idea to start by talking with your doctor or nurse. It is possible to quit on your own without help. But getting help greatly increases your chances of quitting successfully. When you are ready to quit, you will make a plan to: Set a quit date. Tell your family and friends that you plan to quit. Plan ahead for the challenges you will face, such as cigarette cravings. Remove cigarettes from your home, car, and work. If you smoke and have diabetes, it might be harder for you to keep your blood sugar under control. Smoking also increases the risk of problems that can happen in people with diabetes, like heart disease. Smoking can also make people more likely to get diabetes. The below smoking cessation education is reviewed at each visit: Quitting smoking can dramatically improve your health and help you live longer. It lowers your risk of heart disease, lung disease, kidney failure, cancer, infection, stomach problems, and diabetes. Quitting smoking can also lower your chances of getting osteoporosis, a condition that makes your bones weak. Quitting is not easy for most people. It might take several tries to completely quit. But help and support are available. Quitting smoking will improve your health no matter how old you are, even if you have smoked for a long time. It's a good idea to start by talking with your doctor or nurse. It is possible to quit on your own without help. But getting help greatly increases your chances of quitting successfully. When you are ready to quit, you will make a plan to: Set a quit date. Tell your family and friends that you plan to quit. Plan ahead for the challenges you will face, such as cigarette cravings. Remove cigarettes from your home, car, and work. If you smoke and have diabetes, it might be harder for you to keep your blood sugar under control. Smoking also increases the risk of problems that can happen in people with diabetes, like heart disease. Smoking can also make people more likely to get diabetes. 09/13/24 pt reports cinnamon makes smoking last bad and quite cinnamon 09/27/2024 Nicotine dependence, cigarettes, uncomplicated (ICD-10 - F17.210) 09/20/2024 Morbid (severe) obesity due to excess calories (ICD-10 - E66.01) 10/04/2024 Morbid (severe) obesity due to excess calories (ICD-10 - E66.01) 10/04/2024 Nicotine dependence, cigarettes, uncomplicated (ICD-10 - F17.210) 09/27/2024 Patient's noncompliance with other medical treatment and regimen for other reason (ICD-10 - Z91.198) 09/20/2024 Nicotine dependence, cigarettes, uncomplicated (ICD-10 - F17.210) 09/13/2024 Patient's noncompliance with other medical treatment and regimen for other reason (ICD-10 - Z91.198) 08/23/2024 Morbid (severe) obesity due to excess calories (ICD-10 - E66.01) 08/30/2024 Morbid (severe) obesity due to excess calories (ICD-10 - E66.01) 09/06/2024 Morbid (severe) obesity due to excess calories (ICD-10 - E66.01) 08/09/2024 Morbid (severe) obesity due to excess calories (ICD-10 - E66.01) 08/16/2024 Morbid (severe) obesity due to excess calories (ICD-10 - E66.01) 08/02/2024 Nicotine dependence, cigarettes, uncomplicated (ICD-10 - F17.210) 03/15/2024 Nicotine dependence, cigarettes, uncomplicated (ICD-10 - F17.210) 03/15/2024 Pain in right lower leg (ICD-10 - M79.661) 08/02/2024 Patient's noncompliance with other medical treatment and regimen for other reason (ICD-10 - Z91.198) 08/16/2024 Nicotine dependence, cigarettes, uncomplicated (ICD-10 - F17.210) Quitting smoking can dramatically improve your health and help you live longer. It lowers your risk of heart disease, lung disease, kidney failure, cancer, infection, stomach problems, and diabetes. Quitting smoking can also lower your chances of getting osteoporosis, a condition that makes your bones weak. Quitting is not easy for most people. It might take several tries to completely quit. But help and support are available. Quitting smoking will improve your health no matter how old you are, even if you have smoked for a long time. It's a good idea to start by talking with your doctor or nurse. It is possible to quit on your own without help. But getting help greatly increases your chances of quitting successfully. When you are ready to quit, you will make a plan to: Set a quit date. Tell your family and friends that you plan to quit. Plan ahead for the challenges you will face, such as cigarette cravings. Remove cigarettes from your home, car, and work. If you smoke and have diabetes, it might be harder for you to keep your blood sugar under control. Smoking also increases the risk of problems that can happen in people with diabetes, like heart disease. Smoking can also make people more likely to get diabetes. 08/09/2024 Nicotine dependence, cigarettes, uncomplicated (ICD-10 - F17.210) 09/06/2024 Nicotine dependence, cigarettes, uncomplicated (ICD-10 - F17.210) The below smoking cessation education is reviewed at each visit: Quitting smoking can dramatically improve your health and help you live longer. It lowers your risk of heart disease, lung disease, kidney failure, cancer, infection, stomach problems, and diabetes. Quitting smoking can also lower your chances of getting osteoporosis, a condition that makes your bones weak. Quitting is not easy for most people. It might take several tries to completely quit. But help and support are available. Quitting smoking will improve your health no matter how old you are, even if you have smoked for a long time. It's a good idea to start by talking with your doctor or nurse. It is possible to quit on your own without help. But getting help greatly increases your chances of quitting successfully. When you are ready to quit, you will make a plan to: Set a quit date. Tell your family and friends that you plan to quit. Plan ahead for the challenges you will face, such as cigarette cravings. Remove cigarettes from your home, car, and work. If you smoke and have diabetes, it might be harder for you to keep your blood sugar under control. Smoking also increases the risk of problems that can happen in people with diabetes, like heart disease. Smoking can also make people more likely to get diabetes. 08/30/2024 Nicotine dependence, cigarettes, uncomplicated (ICD-10 - F17.210) The below smoking cessation education is reviewed at each visit: Quitting smoking can dramatically improve your health and help you live longer. It lowers your risk of heart disease, lung disease, kidney failure, cancer, infection, stomach problems, and diabetes. Quitting smoking can also lower your chances of getting osteoporosis, a condition that makes your bones weak. Quitting is not easy for most people. It might take several tries to completely quit. But help and support are available. Quitting smoking will improve your health no matter how old you are, even if you have smoked for a long time. It's a good idea to start by talking with your doctor or nurse. It is possible to quit on your own without help. But getting help greatly increases your chances of quitting successfully. When you are ready to quit, you will make a plan to: Set a quit date. Tell your family and friends that you plan to quit. Plan ahead for the challenges you will face, such as cigarette cravings. Remove cigarettes from your home, car, and work. If you smoke and have diabetes, it might be harder for you to keep your blood sugar under control. Smoking also increases the risk of problems that can happen in people with diabetes, like heart disease. Smoking can also make people more likely to get diabetes. 08/23/2024 Nicotine dependence, cigarettes, uncomplicated (ICD-10 - F17.210) The below smoking cessation education is reviewed at each visit: Quitting smoking can dramatically improve your health and help you live longer. It lowers your risk of heart disease, lung disease, kidney failure, cancer, infection, stomach problems, and diabetes. Quitting smoking can also lower your chances of getting osteoporosis, a condition that makes your bones weak. Quitting is not easy for most people. It might take several tries to completely quit. But help and support are available. Quitting smoking will improve your health no matter how old you are, even if you have smoked for a long time. It's a good idea to start by talking with your doctor or nurse. It is possible to quit on your own without help. But getting help greatly increases your chances of quitting successfully. When you are ready to quit, you will make a plan to: Set a quit date. Tell your family and friends that you plan to quit. Plan ahead for the challenges you will face, such as cigarette cravings. Remove cigarettes from your home, car, and work. If you smoke and have diabetes, it might be harder for you to keep your blood sugar under control. Smoking also increases the risk of problems that can happen in people with diabetes, like heart disease. Smoking can also make people more likely to get diabetes. 09/20/2024 Patient's noncompliance with other medical treatment and regimen for other reason (ICD-10 - Z91.198) 10/04/2024 Patient's noncompliance with other medical treatment and regimen for other reason (ICD-10 - Z91.198) 08/16/2024 Patient's noncompliance with other medical treatment and regimen for other reason (ICD-10 - Z91.198) 08/23/2024 Patient's noncompliance with other medical treatment and regimen for other reason (ICD-10 - Z91.198) 09/06/2024 Patient's noncompliance with other medical treatment and regimen for other reason (ICD-10 - Z91.198) 08/30/2024 Patient's noncompliance with other medical treatment and regimen for other reason (ICD-10 - Z91.198) 08/09/2024 Patient's noncompliance with other medical treatment and regimen for other reason (ICD-10 - Z91.198) 03/15/2024 Other I, Rodney Alan MD confirm that [facility] Yoon [facility] understands and adheres to the guidelines of the established clinical protocols in the office. I confirm the above care provided was rendered under my general supervision as initially planned and subsequently discussed and supervised by me. 08/02/2024 Haven Rodriguez is a returning patient that was last seen in March 2024. 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 She has not had any follow up with wound clinic since that time. She is followed by [facility]. In April she had a skin graft to pyoderma site. She reports this occurred in [place]. No other concerns at today's visit. On assessment today, Jennifer is noted to be afebrile and other VS were within normal limits. The patient denies pain or discomfort related to wound. We removed dressings, and I examined her wound with no suggestive s/s of an underlying infectious process. There was no foul odor noted. Her wound is located to Right calf. Her leg is edematous, non pitting. The wound bed is moist and wet noted with greenish hue. The periwound is macerated with callus. No debridement performed due to underlying pathergy of pyoderma. A wound culture was obtained today to R/O underlying infectious property The wound site were then cleansed with Dakin's x 10 min, and thereafter, we applied HFB ready onto the wound sites and zinc to albaro wound areas. The sites were then covered with a dry dressing. Patient was educated on elevating their legs and protect wound site She was educated on importance of wound care follow up and appropriate dressing changes I recommend Dakin's with 10 min soak before each dressing change I recommend HFB ready due to copious drainage smoking cessation was discussed however she is not ready to quit smoking at this time visiting nurses to perform the above dressing changes regularly, every other day S/S of infection reviewed and when to go to EDPatient will have FU in one week Reviewed past medical records, labs, hospitalizations, performed a complete wound assessment to assist in the identification of underlying cause of the wound to individualize treatment plan going forward. Will obtain consultations as indicated from different disciplines if not already involved with current care, including but not limited to: vascular intervention, endocrine, diabetic and nutrition education, infectious disease, dermatology, surgery. Will continue to review and assess interventions including but not limited to orthotics, and compression therapy, THIEN, labs, and cultures. Documentation will be provided to primary physicians or referring physicians to keep them informed of patients' progress. Due to the many factors that impact the healing of wounds, including but not limited to endocrine disorder, autoimmune disorders, Diabetes, weight gain, cardiovascular disease, poor circulation, and medications, and more not listed, and the role they play on the delay in wound healing, all referrals will be made promptly as well as discussed with patient prior too. We reviewed the importance of multidisciplinary team to maximize wound outcomes.Patient verbalized understand and denies questions or concerns at this time A total of 40 minutes was spent on this visit (face to face and non face to face) documenting HPI and performing physical exam, reviewing previous notes and testing, reviewing and adjusting treatment plan, counseling the patient on treatment choices, disease process, expected outcomes, and documenting the findings in the note. I, Christopher Stephenson, MSN, BUTTON MAKER AND INSTALLER, SPLIT AND DRUM ROOM SUPERVISOR-C, examined, evaluated, and treated the patient. Dr. Fransisco Alan was available for any questions or concerns that I may have had. 08/09/2024 Haven Rodriguez presents today for her weekly follow visit for right posterior lower leg wound with diagnosis of pyoderma gangrenosum. Currently her treatment consists of dakins soak x 10 mins, rinse with saline, HFB ready to wound bed and zinc to periwound followed by dry dressing. She is using tubi for compression with no pain or concerns with compression. VNA is assisting with dressing changes. No other acute concerns at todays visit. On assessment today, Jennifer is noted to be afebrile and other VS were within normal limits. Jennifer denies pain or discomfort related to wound. We removed dressings, and I examined her wound with no suggestive s/s of an underlying infectious process. There was no foul odor noted. Her wound is located to Right calf. Today her wound is noted with improvement based on measurements and assessment from last visit. The wound bed has granulation noted and the periwound with some callus and fibrinous edges. She continues with moderate drainage. However, no debridement performed due to underlying pathergy of pyoderma. A wound culture was obtained at last visit, C+S revelaed multi radha. 08/09/24 THIEN R 0.79 L 1.04, TBI R 0.42 L 0.56 will make referral to vascular as right THIEN and TBI warrent vascular referral, and wound is on right calf. The wound site were then cleansed with Dakin's x 10 min, and thereafter, we applied HFB ready onto the wound sites and zinc to albaro wound areas. The sites were then covered with a dry dressing. Patient was educated on elevating their legs and protect wound site She was educated on importance of wound care follow up and appropriate dressing changes I smoking cessation was discussed however she is not ready to quit smoking at this time visiting nurses to perform the above dressing changes regularly, every other day S/S of infection reviewed and when to go to EDPatient will have FU in one week A total of 40 minutes was spent on this visit (face to face and non face to face) documenting HPI and performing physical exam, reviewing previous notes and testing, reviewing and adjusting treatment plan, counseling the patient on treatment choices, disease process, expected outcomes, and documenting the findings in the note. I, Christopher Stephenson, MSN, BUTTON MAKER AND INSTALLER, SPLIT AND DRUM ROOM SUPERVISOR-C, examined, evaluated, and treated the patient. Dr. Franissco Alan was available for any questions or concerns that I may have had. Quitting smoking can dramatically improve your health and help you live longer. It lowers your risk of heart disease, lung disease, kidney failure, cancer, infection, stomach problems, and diabetes. Quitting smoking can also lower your chances of getting osteoporosis, a condition that makes your bones weak. Quitting is not easy for most people. It might take several tries to completely quit. But help and support are available. Quitting smoking will improve your health no matter how old you are, even if you have smoked for a long time. It's a good idea to start by talking with your doctor or nurse. It is possible to quit on your own without help. But getting help greatly increases your chances of quitting successfully. When you are ready to quit, you will make a plan to: Set a quit date. Tell your family and friends that you plan to quit. Plan ahead for the challenges you will face, such as cigarette cravings. Remove cigarettes from your home, car, and work. If you smoke and have diabetes, it might be harder for you to keep your blood sugar under control. Smoking also increases the risk of problems that can happen in people with diabetes, like heart disease. Smoking can also make people more likely to get diabetes. 08/16/2024 Other Jennifer contnues with weekly follow visits. She is followed for right posterior lower leg wound with diagnosis of pyoderma gangrenosum. She continues with dakins soak x 10 mins, rinse with saline, HFB ready to wound bed and zinc to periwound followed by dry dressing. She is using tubi for compression with no pain or concerns with compression. VNA is assisting with dressing changes. She continues to report despite sending several referrals, that vascular has not reached out. Office will reach out to vascular again at todays visit. No other acute concerns at todays visit. On assessment today, Jennifer is noted to be afebrile and other VS were within normal limits. Jennifer denies pain or discomfort related to wound. We removed dressings, and I examined her wound with no suggestive s/s of an underlying infectious process. There was no foul odor noted. Her wound is located to Right calf. Today her wound is noted as stable with no significant changes based on measurements and assessment from last visit. The wound bed has granulation noted and the periwound with some callus and fibrinous edges. She continues with moderate drainage. However, no debridement performed due to underlying pathergy of pyoderma. A wound culture was obtained at last visit, C+S revelaed multi radha. 08/09/24 THIEN R 0.79 L 1.04, TBI R 0.42 L 0.56 will make referral to vascular as right THIEN and TBI warrent vascular referral, and wound is on right calf. The wound site were then cleansed with Dakin's x 10 min, and thereafter, we applied HFB ready onto the wound sites and zinc to albaro wound areas. The sites were then covered with a dry dressing. Patient was educated on elevating their legs and protect wound site She was educated on importance of wound care follow up and appropriate dressing changes smoking cessation is discussed weekly, however she is not ready to quit smoking at this time visiting nurses to perform the above dressing changes regularly, every other day S/S of infection reviewed and when to go to EDPatient will have FU in one week A total of 41 minutes was spent on this visit (face to face and non face to face) documenting HPI and performing physical exam, reviewing previous notes and testing, reviewing and adjusting treatment plan, counseling the patient on treatment choices, disease process, expected outcomes, and documenting the findings in the note. Christopher Steven, MSN, BUTTON MAKER AND INSTALLER, SPLIT AND DRUM ROOM SUPERVISOR-C, examined, evaluated, and treated the patient. Dr. Fransisco Alan was available for any questions or concerns that I may have had. 08/23/2024 Haven Rodriguez is a weekly follow-up for chronic wound that is diagnoses as pyoderma to right leg. She has vascular appointment pending on 08/26/24 due to THIEN results that warranted referral. She continues with HFB ready. She states dressing changes performed every other day with no other acute concerns. On assessment today, Jennifer is noted to be afebrile and other VS were within normal limits. Jennifer denies pain or discomfort related to wound. We removed dressings, and I examined her wound with no suggestive s/s of an underlying infectious process. There was no foul odor noted. Her wound is located to Right calf. Continues with purulent ulcer with a ragged and violaceous border. The wound bed has slough with granulated tissue. The periwound is also noted with callus formation. However, the is wound is noted with improvement based on measurements and assessment from last visit. The wound site were then cleansed with Dakin's x 10 min, and thereafter, we applied HFB ready onto the wound sites and zinc to albaro wound areas. The sites were then covered with a dry dressing. Patient was educated on elevating their legs and protect wound site visiting nurses to perform the above dressing changes regularly, every other day S/S of infection reviewed and when to go to ED Patient will have FU in one week A total of 30 minutes was spent on this visit (face to face and non face to face) documenting HPI and performing physical exam, reviewing previous notes and testing, reviewing and adjusting treatment plan, counseling the patient on treatment choices, disease process, expected outcomes, and documenting the findings in the note. Christopher Steven, MSN, BUTTON MAKER AND INSTALLER, SPLIT AND DRUM ROOM SUPERVISOR-C, examined, evaluated, and treated the patient. Dr. Fransisco Alan was available for any questions or concerns that I may have had. 08/30/2024 Haven Rodriguez presents for her weekly follow up related to her chronic wound (pyoderma) to right leg. She had a vascular appointment with no further follow up She continues with HFB ready. She states dressing changes performed every other day with no other acute concerns. On assessment today, Jennifer is noted to be afebrile and other VS were within normal limits. Jennifer denies pain or discomfort related to wound. We removed dressings, and I examined her wound with no suggestive s/s of an underlying infectious process. There was no foul odor noted. Her wound is located to Right calf. Is noted with improvement based on assessment and measurements from last visit. Her wound bed is noted with granular tissue coming through and the periwound with fibrinous/callused rim. The wound site were then cleansed with saline, and thereafter, we applied HFB ready onto the wound sites and zinc to albaro wound areas. The sites were then covered with a dry dressing. Patient was educated on elevating their legs and protect wound site I recommended discontinuing Dakin's, however the patient continues to use it and states she feels better with using it. She was educated that it is caustic to the new skin cells and can inhibit healing as well visiting nurses to perform the above dressing changes regularly, every other day S/S of infection reviewed and when to go to ED Patient will have FU in one week A total of 30 minutes was spent on this visit (face to face and non face to face) documenting HPI and performing physical exam, reviewing previous notes and testing, reviewing and adjusting treatment plan, counseling the patient on treatment choices, disease process, expected outcomes, and documenting the findings in the note. I, Christopher Stephenson, MSN, BUTTON MAKER AND INSTALLER, SPLIT AND DRUM ROOM SUPERVISOR-C, examined, evaluated, and treated the patient. Dr. Fransisco Alan was available for any questions or concerns that I may have had. 09/06/2024 Haven Rodriguez presents for her weekly follow up related to her chronic wound (pyoderma) to right leg. She continues with HFB ready and tubi to right leg, however today she reports discomfort to left leg and edema, however the is no open are to left leg noted.. She states dressing changes performed every other day with no other acute concerns. On assessment today, Jennifer is noted to be afebrile and other VS were within normal limits. Jennifer denies pain or discomfort related to wound. We removed dressings, and I examined her wound with no suggestive s/s of an underlying infectious process. There was no foul odor noted. Her wound is located to Right calf. Is noted with improvement based on assessment and measurements from last visit. Her wound bed is noted with granular and hypergranulation and the periwound with fibrinous rim. The wound site were then cleansed with saline, and thereafter, we applied HFB ready onto the wound sites and zinc to albaro wound areas. The sites were then covered with a dry dressing. Patient was educated on elevating their legs and protect wound site I recommended discontinuing Dakin's, however the patient continues to use it and states she feels better with using it. She was educated that it is caustic to the new skin cells and can inhibit healing as well visiting nurses to perform the above dressing changes regularly, every other day S/S of infection reviewed and when to go to ED Patient will have FU in one week A total of 35 minutes was spent on this visit (face to face and non face to face) documenting HPI and performing physical exam, reviewing previous notes and testing, reviewing and adjusting treatment plan, counseling the patient on treatment choices, disease process, expected outcomes, and documenting the findings in the note. I, Christopher Stephenson, MSN, BUTTON MAKER AND INSTALLER, SPLIT AND DRUM ROOM SUPERVISOR-C, examined, evaluated, and treated the patient. Dr. Fransisco Alan was available for any questions or concerns that I may have had. 09/13/2024 Other On assessment today, Jennifer is noted to be afebrile and other VS were within normal limits. eJnnifer denies pain or discomfort related to wound. We removed dressings, and I examined her wound with no suggestive s/s of an underlying infectious process. There was no foul odor noted. Her wound is located to Right calf continues with improvement and again this week is noted with improvement based on assessment and measurements from last visit. Her wound bed is noted with increased granulation and the periwound with fibrinous rim. The wound site were then cleansed with saline, and thereafter, we applied xeroform ready onto the wound sites and zinc to albaro wound areas. The sites were then covered with a dry dressing. Patient was educated on elevating their legs and protect wound site i recommend changing from HFB to xeroform due to decreased drainage I recommended discontinuing Dakin's, however the patient continues to use it and states she feels better with using it. She was educated that it is caustic to the new skin cells and can inhibit healing as well visiting nurses to perform the above dressing changes regularly, every other day S/S of infection reviewed and when to go to ED Patient will have FU in one week A total of 35 minutes was spent on this visit (face to face and non face to face) documenting HPI and performing physical exam, reviewing previous notes and testing, reviewing and adjusting treatment plan, counseling the patient on treatment choices, disease process, expected outcomes, and documenting the findings in the note. I, Christopher Stephenson, MSN, BUTTON MAKER AND INSTALLER, SPLIT AND DRUM ROOM SUPERVISOR-C, examined, evaluated, and treated the patient. Dr. Fransisco Alan was available for any questions or concerns that I may have had. 09/20/2024 Other 09/27/2024 Other 10/04/2024 Other Plan Of Treatment No Information Insurance Providers Payer Name Payer Address Payer Phone Subscriber Number Group Number Insured Name Patient Relationship to Insured Coverage Start Date Coverage End Date [facility] ([facility] [address] [address] [place], [place] [phone] [id number] [facility] Self - patient is the insured 4 Medical (General) History Medical History History ICD Code Depression F32.A Type 2 diabetes with complication E11.8 Type 2 diabetes mellitus with other skin ulcer E11.622 Opioid use disorder F11.90 Severe obesity E66.01 Pyoderma gangrenosum L88 Pain in right lower leg M79.661 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
--- OUTSIDE RECORDS SUMMARY | 2025-01-09 08:47 | XMS_ITS | Encounter Summary ---
Author Organization [facility] Address [address] [place] [address] Phone Care Team Providers Care Cryptologic Support Specialist Name Role Phone Christopher Ramires MD Primary Care Provider Campbell Bird MD Unavailable [phone] Reason for Visit * Reason Comments Medication Refill Encounter Details Date Type Department Care Team ([facility] st Contact Info) Description 12/07/2024 Refill [facility] [address], 4th [address], [address] [place] [address] Kodi Rodrigez, CODE NUMBER STAMPER [address] [place] [address] [email or web address] Medication Refill Social History Tobacco Use Types Packs/Day Years Used Date Smoking Tobacco: Every Day Cigarettes Alcohol Use Standard Drinks/Week Comments Never 0 (1 standard drink = 0.6 oz pur e alcohol) Education Answer Date Recorded Are you interested in more education? Not on lefty e 11/03/2023 Are you concerned about learning? Not on file 11/03/2023 No 11/03/2023 No 11/03/2023 Food Answer Date Recorded Within the past 6 months we worried whether our food would run out before we got money to buy more. Never True 04/22/2024 Within the past 6 months the food we bought just didn't last and we didn't have enough money to get more. Never True Residential Stability Answer Date Recor ded What is your housing situation today? I have emeka sing 04/22/2024 How many times have you move d in the past 12 months? Zero (I did not move) 04/22/2024 Paying for Meds Answer Date Recorded Do you have trouble paying for medicines? Unable to assess 04/22/2024 Paying Utility Bills Answer Date Record ed Do you have trouble paying your heating or elect ricity bill? No 04/22/2024 Transportation Answer Date Recorded Has the lack of transportati on kept you from medical appointments or from getting medications? No 04/22/2024 Digital Access Answer Date Recorded No 04/22/2024 Yes 04/22/2024 Do you have reliable internet access at home? Ye s 04/22/2024 Do you have a device (e.g., phone, tablet, computer) with a working camera? Yes 04/22/2024 Intimate Partner Violence Answer Date R ecorded Are you denied basic needs s uch as food, clothing, or medical care? Deferred 04/21/2024 In the past 12 months have y ou been in a relationship with a person who hurts, threatens, or tries to control you? Deferred 04/21/2024 Are you denied basic needs s uch as food, clothing, or medical care? Deferred 04/21/2024 In the past 12 months have y ou been in a relationship with a person who hurts, threatens, or tries to control you? 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 It is not the complete legal health record.[facility]
== END 2025-01-09 09:29 | disposition home or self-care (01) ==
PROVIDERS: PCP Internal Medicine; Visit Provider Nurse Practitioner Family
DX: L03.90 Cellulitis, unspecified (principal)

== ENCOUNTER → 2025-01-09 08:31 | Outpatient (BNVA) | payer OTHER, SELFPAY | PROVIDERS: PCP Internal Medicine; Visit Provider Nurse Practitioner Family | DX: L03.116 Cellulitis of left lower limb (principal) | CPT/HCPCS: 99212 ==

== ENCOUNTER 2025-02-23 08:37 | Outpatient (AMB) | payer OTHER, SELFPAY ==
--- NOTE | 2025-02-23 09:04 | MHC.PC.OV ---
Vital Signs 02/23/25 09:08 Height 5 ft 2 in Weight 289 lb 8 oz BMI 52.9 BP 135/64 Blood Pressure Location Lt brachial Position Sitting Respiration 16 Pulse 59 Pulse Source Pulse Oximeter Temp 97.0 F Temp Source Temporal Artery Scan Pulse Oximetry (%) 93 Oxygen Delivery Method Room Air Intake Visit Reasons: 3 MONTHS DM Intake Note: patient here for 3 month follow up for DM Social Sciences Department Chair Required: No Is last menstrual period known: No Post menopausal: No Patient : No Allergies No Known Allergies Allergy (Verified 02/23/25 09:07) Tobacco use date assessed: 02/23/25 Dental Screening Dental Screen Date: 02/23/25 Did you have a dental visit in the last 12 months?: No Did you have a dental problem in the last 6 months where you did not have access to dental care?: No Was dental information given to patient?: No HPI HPI Comments History of Present Illness Details The patient is a 43 year old female with a past medical history of type 2 diabetes, Right lower extremity wound, h/o opioid dependence, bipolar disorder presenting for follow up Diabetes: She is on Metformin 1000mg twice daily. Glipizide 20mg daily, Actos, off Lantus. A1C 6.1%. MSK: Stable back, b/l leg pain. She had xrays which showed arthritic changes. She continues meloxicam, gabapentin Micro/macrovascular complications: Right lower extremity wound with delayed healing-following with wound care-[place] every thursday. She is on suboxone-gets this in [place] . [facility] wound care. BH: Bipolar disorder, anxiety. Endorses extreme social anxiety, poor sleep-on fluoxetine 20mg, abilify, propranolol. Still anxious. Not following with psychiatry. Declines referral ROS see HPI PHYSICAL EXAM: GENERAL: Alert and oriented x 3. NAD EYES: EOMI. Anicteric. HENT: Moist mucous membranes. LUNGS: Clear to auscultation bilaterally. CARDIOVASCULAR: Regular rate and rhythm. ABDOMEN: Soft, non-tender +bs EXTREMITIES: Right lower extremity is bandaged, no purulence SKIN: No rashes or lesions. Warm. NEUROLOGIC: No focal neurological deficits. CN II-XII grossly intact PSYCHIATRIC: Cooperative. Anxious [facility] Medical History (Updated 01/09/25 @ 09:09 by Keisha K W Ndissi, SUMMER CLERK) Cellulitis of skin Depression Anxiety COPD (chronic obstructive pulmonary disease) Surgical History H/O skin graft History of surgery on lower extremity S/P hernia surgery H/O tubal ligation Family History Mother Asthma High blood pressure High cholesterol Diabetes Cervical cancer Cardiovascular disease Father Asthma High blood pressure High cholesterol Diabetes Alcoholism Cardiovascular disease Maternal Grandmother Asthma Alcoholism Cardiovascular disease Diabetes High cholesterol High blood pressure Other FH: mental illness Substance abuse Social History (Updated 11/15/24 @ 08:18 by Anamika Aguero MA) Housing: House Alcohol intake: current Alcohol intake frequency: holidays/special occasions only Patient Tobacco Use Status: Current everyday Tobacco user Cigarette Packs Per Day: 0.5 Years Smoked: 28 e-Cigarette/Vaping Use: Never Used Second Hand Smoke Exposure: Yes Substance Use Type: Marijuana service: No Current occupational status: disabled Cognitive needs: No Hearing needs: No Vision needs: Yes (Patient wears glasses) Questionnaire Thrive Questionnaire Date Thrive assessed: 06/27/24 I am a: Patient What is your living situation today?: I have a steady place to live Within the past 12 months, did the food you bought not last and you didn't have the money to get more?: I choose not to answer this question Within the past 12 months, did you worry whether your food would run out before you got money to buy more?: I choose not to answer this question Do you have trouble paying for medicines?: I choose not to answer this question Do you have trouble getting transportation to medical appointments?: I choose not to answer this question Do you have trouble paying your heating and electricity bill?: I choose not to answer this question Do you have trouble taking care of your child, family member or friend?: I choose not to answer this question Do you have trouble with day-to-day activities such as bathing, preparing meals, shopping, managing finances, etc.?: I choose not to answer this question Are you currently unemployed and looking for a job?: I choose not to answer this question Are you interested in more education?: I choose not to answer this question Please select the resources that you would like help with: None Currently or been in a relationship where the following occur: I choose not to answer THRIVE Score: 0 KRYSTA-7 AMB Questionnaire KRYSTA-7 Date KRYSTA - 7 assessed: 12/03/23 Source: Developed by Drs. Jian Smith, Lucinda Del Rio, Rahul Leung and colleagues, with an educational ju from [employer]. Physical exam (Primary Care) Vital Signs: Last Vital Signs Temp 97.0 F 02/23/25 09:08 Pulse 59 02/23/25 09:08 Resp 16 02/23/25 09:08 BP 135/64 02/23/25 09:08 Pulse Ox 93 02/23/25 09:08 Oxygen Delivery Method Room Air 02/23/25 09:08 BMI result Body Mass Index 52.9 Tobacco/Smoking Status: Tobacco use Status Tobacco use date assessed 02/23/25 02/23/25 09:11 Patient Tobacco Use Status Current everyday Tobacco 02/23/25 09:04 e-Cigarette/Vaping Use Never Used 02/23/25 09:04 Thrive Assessment: Date of Thrive Assessment Date Thrive assessed 06/27/24 02/23/25 09:04 Currently or been in a relationship where the following occur: I choose not to answer Results AMB Hemoglobin A1c AMB Hemoglobin A1c 6.1 % Last Edit by Sabina Carcamo CMA on 02/23/25 09:33 Coding Level of Care Code Est Pt Level 4 (02277) Diagnoses Type 2 diabetes mellitus with hyperglycemia, without long-term current use of insulin E11.65 Diabetes mellitus skilled nursing insulin use: without skilled nursing use Bipolar disorder in partial remission, most recent episode unspecified type F31.70 Active/Remission status: in partial remission Most recent bipolar episode type: unspecified type History of opioid abuse F11.11 Insulin long-term use Z79.4 Assessment & Plan Assessment & Plan (1) Type 2 diabetes mellitus with hyperglycemia: Code(s): E11.65 - Type 2 diabetes mellitus with hyperglycemia Category: Medical Qualifiers: Diabetes mellitus adjunct faculty for medical terminology insulin use: without adjunct faculty for medical terminology use Qualified Code(s): E11.65 - Type 2 diabetes mellitus with hyperglycemia (2) Bipolar disorder: Code(s): F31.9 - Bipolar disorder, unspecified Category: Medical Qualifiers: Active/Remission status: in partial remission Most recent bipolar episode type: unspecified type Qualified Code(s): F31.70 - Bipolar disorder, currently in remission, most recent episode unspecified (3) History of opioid abuse: Code(s): F11.11 - Opioid abuse, in remission Category: Medical (4) Insulin long-term use: Code(s): Z79.4 - longterm (current) use of insulin Category: Medical Plan DM is well controlled. Off insulin. Recommend annual eye exam Bipolar disorder-still with significant anxiety. Increase prozac to 40mg daily Insomnia-trazodone has not been effective for mainting sleep. Trial temazepam Orders: Orders AMB Hemoglobin A1c Today E11.9 - Type 2 diabetes mellitus without complications MM tomosynthesis screening BI Today Z12.31 - Encounter for screening mammogram for malignant neoplasm of breast Medications: New fluoxetine 40 mg PO DAILY 90 caps 3RF temazepam 15 mg PO BEDTIME PRN 90 caps 3RF sleep Discontinued fluoxetine Discontinued Reason: Doctor's Order 20 mg PO DAILY 90 tabs 3RF
[2025-02-23 09:08] VITALS: BP 135/64; PULSE 59; RESP 16; TEMP 36.1; O2SAT 93; BMI 52.9
--- OUTSIDE RECORDS SUMMARY | 2025-02-23 09:39 | XMS_ITS | Encounter Summary ---
Author Organization [facility] Address [address] [place] [address] Phone Care Team Providers Care Activated Sludge Operator Name Role Phone Christopher Ramires MD Primary Care Provider Campbell Bird MD Unavailable [phone] Encounter Details Date Type Department Care Team (Late st Contact Info) Description 05/09/2024 Procedure Pass [facility] PERIOPERATIVE DEPT [address] [place] [id number] Social History Tobacco Use Types Packs/Day Years [...] documented as of this encounter Visit Diagnoses Not on filedocumented in this encounter Additional Health Concerns Infection Onset Date Last Indicated Resolved Time MDR-GN 04/28/2024 04/28/2024 documented as of this encounter Care Teams Activated Sludge Operator Relationship Specialty Start Date End Date Christopher Ramires MD [address] [place] [address] PCP - General Family Medicine 04/25/24 Campbell Bird MD [address] [place] [address] [email or web address] Consulting Provider Addiction Medicine 05/11/24 documented as of this encounter Additional Source Comments The information contained in this document represents components of the legal health record. It is not the complete legal health record.[facility]
--- OUTSIDE RECORDS SUMMARY | 2025-02-23 09:39 | XMS_ITS | Encounter Summary ---
Author Organization [facility] Address [address] [place] [address] Phone Care Team Providers Care Kitchen Steward Name Role Phone Christopher Ramires MD Primary Care Provider Campbell Bird MD Unavailable [phone] Encounter Details Date Type Department Care Team (Late st Contact Info) Description 05/03/2024 Procedure Pass [facility] PERIOPERATIVE DEPT [address] [place] [phone] Social History Tobacco Use Types Packs/Day Years [...] documented as of this encounter Care Teams Kitchen Steward Relationship Specialty Start Date End Date Christopher Ramires MD [address] [place] [address] PCP - General Family Medicine 04/25/24 Campbell Bird MD [address] [place] [address] [email or web address] Consulting Provider Addiction Medicine 05/11/24 documented as of this encounter Additional Source Comments The information contained in this document represents components of the legal health record. It is not the complete legal health record.[facility]
--- OUTSIDE RECORDS SUMMARY | 2025-02-23 09:39 | XMS_ITS | Patient Health Record ---
Author Organization [facility] Address [address] [place] [address] Care Team Providers Care Electric Cell Tender Name Role Phone Christopher Ramires Primary Care Provider Unavailab Christopher Garcia Unavailable [phone] Lucía Hyde Unavailable [phone] Melanie Yoon Unavailable [phone] Allergies No Known Allergies Reason For Referral [...] Problem Skin ulcer associated with diabetes mellitus (106447907) Type 2 diabetes mellitus with other skin ulcer (E11.622) Active confirmed Problem Morbid obesity (disorder) (405788127) Morbid (severe) obesity due to excess calories (E66.01) Active confirmed Problem Tobacco user (521313745) Nicotine dependence, cigarettes, uncomplicated (F17.210) Active confirmed Problem Pyoderma gangrenosum (73064545) Pyoderma gangrenosum (L88) Active confirmed Problem Chronic non-pressure ulcer of calf extending to fat level (3788672978228244 1) 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) Active confirmed Problem Noncompliance with treatment (finding) (9902441) Patient's noncompliance with other medical treatment and [...] 10/04/2024 Encounters Encounter Location Date Provider Diagnosis [facility] [address] [address] 03/15/2024 Jooyun Yoon Non-pressure chronic ulcer of other part of right lower leg with fat layer exposed L97.812 ; Pyoderma gangrenosum L88 ; Type 2 diabetes mellitus with other skin ulcer E11.622 ; Morbid (severe) obesity due to excess calories E66.01 ; Nicotine dependence, cigarettes, uncomplicated F17.210 and Pain in right lower leg M79.661 [facility] [address] [address] 08/02/2024 Christopher Stephenson Non-pressure chronic ulcer of other part of right lower leg with fat layer exposed L97.812 ; Pyoderma gangrenosum L88 ; Type 2 diabetes mellitus with other skin ulcer E11.622 ; Morbid (severe) obesity due to excess calories E66.01 ; Nicotine dependence, cigarettes, uncomplicated F17.210 and Patient's noncompliance with other medical treatment and regimen for other reason Z91.198 [facility] [address] [address] 08/09/2024 Christopher Stephenson Non-pressure chronic ulcer of other part of right lower leg with fat layer exposed L97.812 ; Pyoderma gangrenosum L88 ; Type 2 diabetes mellitus with other skin ulcer E11.622 ; Morbid (severe) obesity due to excess calories E66.01 ; Nicotine dependence, cigarettes, uncomplicated F17.210 and Patient's noncompliance with other medical treatment and regimen for other reason Z91.198 [facility] [address] [address] 08/16/2024 Christopher Seema Non-pressure chronic ulcer of other part of right lower leg with fat layer exposed L97.812 ; Pyoderma gangrenosum L88 ; Type 2 diabetes mellitus with other skin ulcer E11.622 ; Morbid (severe) obesity due to excess calories E66.01 ; Nicotine dependence, cigarettes, uncomplicated F17.210 and Patient's noncompliance with other medical treatment and regimen for other reason Z91.198 [place] [address] [address] 08/23/2024 Christopher Seema Non-pressure chronic ulcer of other part of right lower leg with fat layer exposed L97.812 ; Pyoderma gangrenosum L88 ; Type 2 diabetes mellitus with other skin ulcer E11.622 ; Morbid (severe) obesity due to excess calories E66.01 ; Nicotine dependence, cigarettes, uncomplicated F17.210 and Patient's noncompliance with other medical treatment and regimen for other reason Z91.198 [facility] [address] [address] 08/30/2024 Christopher Sotonne Non-pressure chronic ulcer of other part of right lower leg with fat layer exposed L97.812 ; Pyoderma gangrenosum L88 ; Type 2 diabetes mellitus with other skin ulcer E11.622 ; Morbid (severe) obesity due to excess calories E66.01 ; Nicotine dependence, cigarettes, uncomplicated F17.210 and Patient's noncompliance with other medical treatment and regimen for other reason Z91.198 [facility] [address] [address] 09/06/2024 Christopher Seema Non-pressure chronic ulcer of other part of right lower leg with fat layer exposed L97.812 ; Pyoderma gangrenosum L88 ; Type 2 diabetes mellitus with other skin ulcer E11.622 ; Morbid (severe) obesity due to excess calories E66.01 ; Nicotine dependence, cigarettes, uncomplicated F17.210 and Patient's noncompliance with other medical treatment and regimen for other reason Z91.198 [facility] [address] [address] 09/13/2024 Christopher Stephenson Non-pressure chronic ulcer of other part of right lower leg with fat layer exposed L97.812 ; Pyoderma gangrenosum L88 ; Morbid (severe) obesity due to excess calories E66.01 ; Nicotine dependence, cigarettes, uncomplicated F17.210 and Patient's noncompliance with other medical treatment and regimen for other reason Z91.198 [place] [address] [address] 09/20/2024 Anzhela Savonina Non-pressure chronic ulcer of other part of right lower leg with fat layer exposed L97.812 ; Pyoderma gangrenosum L88 ; Blister (nonthermal), right lower leg, initial encounter S80.821A ; Morbid (severe) obesity due to excess calories E66.01 ; Nicotine dependence, cigarettes, uncomplicated F17.210 and Patient's noncompliance with other medical treatment and regimen for other reason Z91.198 [place] [address] [address] 09/27/2024 Anzhela Savonina Non-pressure chronic ulcer of other part of right lower leg with fat layer exposed L97.812 ; Pyoderma gangrenosum L88 ; Morbid (severe) obesity due to excess calories E66.01 ; Nicotine dependence, cigarettes, uncomplicated F17.210 and Patient's noncompliance with other medical treatment and regimen for other reason Z91.198 [facility] [address] [address] 10/04/2024 Anzhela Savonina Non-pressure chronic ulcer of other part of right lower leg with fat layer exposed L97.812 ; Pyoderma gangrenosum L88 ; Morbid (severe) obesity due to excess calories E66.01 ; Nicotine dependence, cigarettes, uncomplicated F17.210 and Patient's noncompliance with other medical treatment and regimen for other reason Z91.198 [facility] [address] [address] 03/16/2024 Melanie Yoon [facility] [address] [address] 08/08/2024 Christopher Stephenson [facility] [address] [address] 08/16/2024 Christopher Stephenson [facility] [address] [address] 08/23/2024 Christopher Stephenson Assessments Encounter Date Diagnosis [...] plan, education and documentation. I Melanie Yoon, BUILDING COORDINATOR-, examined, evaluated and treated the patient. Dr. [...] a follow up visit. I Anzhela Savonina BUILDING COORDINATOR-C, examined, evaluated and treated the patient. Dr. [...] 200mg/dl to support healing. Follow up with scientific diver for optimal glycemic control and wound healing [...] 200mg/dl to support healing. Follow up with scientific diver for optimal glycemic control and wound healing [...] 200mg/dl to support healing. Follow up with scientific diver for optimal glycemic control and wound healing [...] Rodney Alan MD confirm that Melanie Yoon [facility] understands and adheres to the guidelines [...] since that time. She is followed by [facility]. In April she had a skin graft to pyoderma site. She reports this occurred in [place]. No other concerns at today's visit. On [...] in the note. I, Christopher Stephenson, MSN, AUTOMOTIVE ELECTRICAL HELPER, BUILDING COORDINATOR-C, examined, evaluated, and treated the patient. Dr. [...] in the note. I, Christopher Stephenson, MSN, AUTOMOTIVE ELECTRICAL HELPER, BUILDING COORDINATOR-C, examined, evaluated, and treated the patient. Dr. [...] findings in the note. Christopher Steven, MSN, AUTOMOTIVE ELECTRICAL HELPER, BUILDING COORDINATOR-C, examined, evaluated, and treated the patient. Dr. [...] findings in the note. Christopher Steven, MSN, AUTOMOTIVE ELECTRICAL HELPER, BUILDING COORDINATOR-C, examined, evaluated, and treated the patient. Dr. [...] in the note. I, Christopher Stephenson, MSN, AUTOMOTIVE ELECTRICAL HELPER, BUILDING COORDINATOR-C, examined, evaluated, and treated the patient. Dr. [...] in the note. I, Christopher Stephenson, MSN, AUTOMOTIVE ELECTRICAL HELPER, BUILDING COORDINATOR-C, examined, evaluated, and treated the patient. Dr. [...] in the note. I, Christopher Stephenson, MSN, AUTOMOTIVE ELECTRICAL HELPER, BUILDING COORDINATOR-C, examined, evaluated, and treated the patient. Dr. Fransisco Alan was available for any questions or concerns that I may have had. 09/20/2024 Other 09/27/2024 Other 10/04/2024 Other Plan Of Treatment No Information Insurance Providers Payer Name Payer Address Payer Phone Subscriber Number Group Number Insured Name Patient Relationship to Insured Coverage Start Date Coverage End Date [facility] [address] [address] [place], [place] [id number] [facility] Self - patient is the insured 4 [...]
--- OUTSIDE RECORDS SUMMARY | 2025-02-23 09:39 | XMS_ITS | Encounter Summary ---
Author Organization [facility] Address [address] [facility] [address] [place] [id number] Phone Care Team Providers Care Bed Worker Name Role Phone Christopher Ramires MD Primary Care Provider Campbell Bird MD Unavailable [phone] Encounter Details Date Type Department Care Team (Late st Contact Info) Description 05/04/2024 Procedure Pass [facility] [place] PERIOPERATIVE DEPT [address] [place] [id number] Social History Tobacco Use Types Packs/Day Years [...] documented as of this encounter Care Teams Bed Worker Relationship Specialty Start Date End Date Christopher Ramires MD [address] [place] [address] PCP - General Family Medicine 04/25/24 Campbell Bird MD [address] [place] [address] [email or web address] Consulting Provider Addiction Medicine 05/11/24 documented as of this encounter Additional Source Comments The information contained in this document represents components of the legal health record. It is not the complete legal health record.[facility]
--- OUTSIDE RECORDS SUMMARY | 2025-02-23 09:39 | XMS_ITS | Encounter Summary ---
Author Organization [facility] Address [address] [facility] [address] [address] [place] [address] Phone Care Team Providers Care Electric Stop Installer Name Role Phone Christopher Ramires MD Primary Care Provider Campbell Bird MD Unavailable [phone] Encounter Details Date Type Department Care Team (Late st Contact Info) Description 04/28/2024 Procedure Pass [facility] [place] PERIOPERATIVE DEPT [address] [place] [phone] Social History Tobacco Use Types Packs/Day Years [...] tries to control you? Deferred 04/21/2024 Comments Unknown Sex and Gender Information Value Date Recorded [...] documented as of this encounter Care Teams Electric Stop Installer Relationship Specialty Start Date End Date Christopher Ramires MD [address] [place] [address] PCP - General Family Medicine 04/25/24 Campbell Bird MD [address] [place] [address] [email or web address] Consulting Provider Addiction Medicine 05/11/24 documented as of this encounter Additional Source Comments The information contained in this document represents components of the legal health record. It is not the complete legal health record.[facility]
--- OUTSIDE RECORDS SUMMARY | 2025-02-23 09:39 | XMS_ITS | Encounter Summary ---
Author Organization [facility] Address [address] [facility] [place] [address] Phone Care Team Providers Care Vascular Nurse Name Role Phone Christopher Ramires MD Primary Care Provider Campbell Bird MD Unavailable [phone] Reason for Visit * Reason Comments Medication Refill Encounter Details Date Type Department Care Team ([facility] st Contact Info) Description 12/07/2024 Refill [facility] W[facility] [address], [address] [place] [address] Kodi Rodrigez, ASSOCIATE DIRECTOR OF DEVELOPMENT [address] [place] [address] [email or web address] Medication Refill Social History Tobacco Use [...] documented as of this encounter Care Teams Vascular Nurse Relationship Specialty Start Date End Date Christopher Ramires MD [address] [place] [address] PCP - General Family Medicine 04/25/24 Campbell Bird MD [address] [place] [address] [email or web address] Consulting Provider Addiction Medicine 05/11/24 documented as of this encounter Additional Source Comments The information contained in this document represents components of the legal health record. It is not the complete legal health record.[facility]
--- OUTSIDE RECORDS SUMMARY | 2025-02-23 09:40 | XMS_ITS | Clinical Summary ---
Author Organization [facility] Address [address] [place] [id number] Phone Care Team Providers Care Medical Appliance Maker Name Role Phone Christopher Ramires MD Primary Care Provider Campbell Bird MD Unavailable [phone] Allergies No known active allergies Medications acetaminophen (TYLENOL) 500 MG tablet 1,000 mg every 6 (six) hours as needed for pain (specific location in comments). 4 Active clobetasol (TEMOVATE) 0.05 % ointment Apply topically 2 (two) times a day. 4 Active gauze bandage (ROLLED GAUZE) 4 X 75 Bndg See Instructions, # 4 each, Refills 2, Tot. Refills 2, Maintenance, Dx: R Lower Leg Wound: Cleanse with Vashe. Allow to dry. Remove white protective layer from Iodoflex #[id number] and then apply Iodoflex pad to wound bed. Cover with Mextra pads, wrap... 4 Active MELOXICAM ORAL Take 15 mg by mouth daily. 4 Active albuterol 90 mcg/actuation inhaler Inhale 2 puffs into the lungs every 4 (four) hours as needed for shortness of breath/dyspnea or wheezing. 4 Active metFORMIN (GLUCOPHAGE) 1000 MG tablet Take 1,000 mg by mouth 2 (two) times a day with meals. 4 Active atorvastatin (LIPITOR) 20 MG tablet Take 1 tablet (20 mg total) by mouth nightly at bedtime. 30 tablet 4 Active hydrOXYzine (ATARAX) 25 MG tablet Take 1 tablet (25 mg total) by mouth every 4 (four) hours as needed for anxiety. 30 tablet 4 Active insulin glargine-yfgn (SEMGLEE) 100 unit/mL (3 mL) subcutaneous pen Inject 16 Units under the skin nightly at bedtime. 3 mL 4 Active traZODone (DESYREL) 50 MG tablet Take 1 tablet (50 mg total) by mouth nightly at bedtime. 30 tablet 4 Active pregabalin (LYRICA) 50 MG capsule Take 1 capsule (50 mg total) by mouth 3 (three) times a day. 90 capsule 4 Active mupirocin (BACTROBAN) 2 % ointmentIndicatio ns:Status post split thickness skin graft APPLY TOPICALLY 3 TIMES WEEKLY LATHER ON SILICONE MESH CONTACT AND APPLY TO SKIN GRAFT DIRECTED 22 g 1 5 Active Active Problems Problem Noted Date Diagnosed Date Known medical problems 04/23/2024 Assessment & Plan (05/12/2024 1:43 PM EST): # Chronic low back pain Present for 10-15 years, worse with standing up straight for longer periods of time. History consistent with spinal stenosis, likely secondary to degenerative spinal changes. No bowel or bladder incontinence, numbness/weakness. Suspect obesity has exacerbated symptoms and strain to lower back. 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 - Continue nicotine patch - Encourage smoking cessation, consideration of Chantix - Appreciate ACT c/s as elsewhere # Obesity Obesity playing role in other active issues, such as T2DM and back pain. Patient agreeable to Weight Clinic referral. Per patient, GLP-1 was not covered by insurance. Cannot find record of medication ever being prescribed. She is also prescribed pioglitazone for DM, which is associated with weight gain. - Recommend outpatient Weight Clinic referral # Mood disorder Appears to have been previously prescribed Abilify. This was discontinued during recent admission to [facility] for unclear reasons. Patient reports she can no longer follow with prior Psych provider due to insurance coverage issues. - Atarax 25 mg Q4H PRN for anxiety #Sleep - Continue Trazodone 50 mg qhs for sleep Assessment & Plan (05/11/2024 2:44 PM EST): # Chronic low back pain Present for 10-15 years, worse with standing up straight for longer periods of time. History consistent with spinal stenosis, likely secondary to degenerative spinal changes. No bowel or bladder incontinence, numbness/weakness. Suspect obesity has exacerbated symptoms and strain to lower back. 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 - Continue nicotine patch - Encourage smoking cessation, consideration of Chantix - Appreciate ACT c/s as elsewhere # Obesity Obesity playing role in other active issues, such as T2DM and back pain. Patient agreeable to Weight Clinic referral. Per patient, GLP-1 was not covered by insurance. Cannot find record of medication ever being prescribed. She is also prescribed pioglitazone for DM, which is associated with weight gain. - Recommend outpatient Weight Clinic referral # Mood disorder Appears to have been previously prescribed Abilify. This was discontinued during recent admission to [facility] for unclear reasons. Patient reports she can no longer follow with prior Psych provider due to insurance coverage issues. - Atarax 25 mg Q4H PRN for anxiety #Sleep - Continue Trazodone 50 mg qhs for sleep Assessment & Plan (05/10/2024 5:43 PM EST): # Chronic low back pain Present for 10-15 years, worse with standing up straight for longer periods of time. History consistent with spinal stenosis, likely secondary to degenerative spinal changes. No bowel or bladder incontinence, numbness/weakness. Suspect obesity has exacerbated symptoms and strain to lower back. - Pain management as elsewhere - Consider heat therapy, lidocaine patches - Consider outpatient PT referral at discharge for LBP - Recommend Weight Clinic post-discharge, as elsewhere # Hx of OUD Denies active substance use. Reports last used heroin ~4 years ago. Previously on Suboxone, per review of chart appears patient has reported her outpatient prescriber would not prescribe short-acting opiates while she was on Suboxone so this was discontinued. Utox this admission + for opiates and BZD, which is to be expected given ongoing opioid pain medication and recent Ativan at OSH. Continue to address acute pain as elsewhere. ACT following, per note patient would prefer resumption of buprenorphine after acute medical issues resolve, but patient refused starting today after procedure, 05/10. [facility] records in media with prior suboxone dosing. - Continue home multivitamin - Appreciate ACT c/s re: ongoing mOUD discussions - Pain Management after surgery: - Reduce morphine IV 4 mg IV Q6h PRN day 1 (05/10), then 4 mg IV Q8h PRN day 2, then 4mg IV Q12h PRN, then off. - Upon discharge, taper of oral hydromorphone: - Week 1, Dilaudid 6 mg PO Q6hr PRN - Week 2, Dilaudid 6 mg PO Q8h PRN - Week 3, Dilaudid 4 mg PO Q6h PRN - Week 4, Dilaudid 4 mg PO Q8h PRN - Week 5, Dilaudid 2 mg PO Q8h PRN - Week 6, Dilaudid 2 mg PO Q12h PRN - After surgery, when pain stabilized, start buprenorphine and increase to goal suboxone 2mg BID. Please order via low-dose buprenorphine order set.Consider new dates since patient refused 05/10. - Belbuca 225mcg Q12H x2 doses on 05/10/2024 - Belbuca 450mcg Q12H x2 doses on 05/11/2024 - Suboxone 2-0.5 mg Q12H Q12H x2 doses on 05/12/2024 - May escalate to 4-1 mg twice daily on 05/13 if patient is amenable - uptitrate suboxone as outpatient as dilaudid tapers off - ACT will coordinate outpatient buprenorphine plan with her outpatient clinic, [facility] in [place]; will need new patient intake given she was lost to follow-up # Tobacco use disorder Active cigarette smoking [employer]GER, working on cutting back. - Continue nicotine patch - Encourage smoking cessation, consideration of Chantix - Appreciate ACT c/s as elsewhere # Obesity Obesity playing role in other active issues, such as T2DM and back pain. Patient agreeable to Weight Clinic referral. Per patient, GLP-1 was not covered by insurance. Cannot find record of medication ever being prescribed. She is also prescribed pioglitazone for DM, which is associated with weight gain. - Recommend outpatient Weight Clinic referral # Mood disorder Appears to have been previously prescribed Abilify. This was discontinued during recent admission to [facility] for unclear reasons. Patient reports she can no longer follow with prior Psych provider due to insurance coverage issues. - Atarax 25 mg Q4H PRN for anxiety #Sleep - Continue Trazodone 50 mg qhs for sleep Assessment & Plan (05/09/2024 4:04 PM EST): # Chronic low back pain Present for 10-15 years, worse with standing up straight for longer periods of time. History consistent with spinal stenosis, likely secondary to degenerative spinal changes. No bowel or bladder incontinence, numbness/weakness. Suspect obesity has exacerbated symptoms and strain to lower back. - Pain management as elsewhere - Consider heat therapy, lidocaine patches - Consider outpatient PT referral at discharge for LBP - Recommend Weight Clinic post-discharge, as elsewhere # Hx of OUD denies active substance use. Reports last used heroin ~4 years ago. Previously on Suboxone, per review of chart appears patient has reported her outpatient prescriber would not prescribe short-acting opiates while she was on Suboxone so this was discontinued. Utox this admission + for opiates and BZD, which is to be expected given ongoing opioid pain medication and recent Ativan at OSH. Continue to address acute pain as elsewhere. ACT following, per note patient would prefer resumption of buprenorphine after acute medical issues resolve. [facility] records in media with prior suboxone dosing. - Appreciate ACT c/s re: ongoing mOUD discussions - Pain management as elsewhere - Continue home multivitamin - Pain Management after surgery: - Reduce morphine IV to 4 mg IV Q4h PRN for day 1, then to 4 mg IV Q6h PRN day 2, then 4 mg IV Q8h PRN day 3, then 4mg IV Q12h PRN, then off. - Upon discharge, we recommend the following taper of oral hydromorphone: - Week 1, Dilaudid 4 mg PO Q6hr PRN - Week 2, Dilaudid 4 mg PO Q8h PRN - Week 3, Dilaudid 2 mg PO Q8h PRN - Week 4, Dilaudid 2 mg PO Q12h PRN - After surgery, when pain stabilized, start buprenorphine and increase to goal suboxone 2mg BID - Up titrate suboxone as outpatient as dilaudid tapers off (ACT will coordinate with [facility] outpt buprenorphine clinic) # Tobacco use disorder Active cigarette smoking [employer] INS[employer] MA[employer]GER, working on cutting back. - Continue nicotine patch - Encourage smoking cessation, consideration of Chantix - Appreciate ACT c/s as elsewhere # Obesity Obesity playing role in other active issues, such as T2DM and back pain. Patient agreeable to Weight Clinic referral. Per patient, GLP-1 was not covered by insurance. Cannot find record of medication ever being prescribed. She is also prescribed pioglitazone for DM, which is associated with weight gain. - Recommend outpatient Weight Clinic referral # Mood disorder Appears to have been previously prescribed Abilify. This was discontinued during recent admission to [facility] for unclear reasons. Patient reports she can no longer follow with prior Psych provider due to insurance coverage issues. - Atarax 25 mg Q4H PRN for anxiety #Sleep - Continue Trazodone 50 mg qhs for sleep Assessment & Plan (05/08/2024 2:21 PM EST): # Chronic low back pain Present for 10-15 years, worse with standing up straight for longer periods of time. History consistent with spinal stenosis, likely secondary to degenerative spinal changes. No bowel or bladder incontinence, numbness/weakness. Suspect obesity has exacerbated symptoms and strain to lower back. - Pain management as elsewhere - Consider heat therapy, lidocaine patches - Consider outpatient PT referral at discharge for LBP - Recommend Weight Clinic post-discharge, as elsewhere # Hx of OUD denies active substance use. Reports last used heroin ~4 years ago. Previously on Suboxone, per review of chart appears patient has reported her outpatient prescriber would not prescribe short-acting opiates while she was on Suboxone so this was discontinued. Utox this admission + for opiates and BZD, which is to be expected given ongoing opioid pain medication and recent Ativan at OSH. Continue to address acute pain as elsewhere. ACT following, per note patient would prefer resumption of buprenorphine after acute medical issues resolve. [facility] records in media with prior suboxone dosing. 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 - Continue nicotine patch - Encourage smoking cessation, consideration of Chantix - Appreciate ACT c/s as elsewhere # Obesity Obesity playing role in other active issues, such as T2DM and back pain. Patient agreeable to Weight Clinic referral. Per patient, GLP-1 was not covered by insurance. Cannot find record of medication ever being prescribed. She is also prescribed pioglitazone for DM, which is associated with weight gain. - Recommend outpatient Weight Clinic referral # Mood disorder Appears to have been previously prescribed Abilify. This was discontinued during recent admission to [facility] for unclear reasons. Patient reports she can no longer follow with prior Psych provider due to insurance coverage issues. - Atarax 25 mg Q4H PRN for anxiety #Sleep - Continue Trazodone 50 mg qhs for sleep Assessment & Plan (05/07/2024 3:39 PM EST): # Chronic low back pain Present for 10-15 years, worse with standing up straight for longer periods of time. History consistent with spinal stenosis, likely secondary to degenerative spinal changes. No bowel or bladder incontinence, numbness/weakness. Suspect obesity has exacerbated symptoms and strain to lower back. - Pain management as elsewhere - Consider heat therapy, lidocaine patches - Consider outpatient PT referral at discharge for LBP - Recommend Weight Clinic post-discharge, as elsewhere # Hx of OUD denies active substance use. Reports last used heroin ~4 years ago. Previously on Suboxone, per review of chart appears patient has reported her outpatient prescriber would not prescribe short-acting opiates while she was on Suboxone so this was discontinued. Utox this admission + for opiates and BZD, which is to be expected given ongoing opioid pain medication and recent Ativan at OSH. Continue to address acute pain as elsewhere. ACT following, per note patient would prefer resumption of buprenorphine after acute medical issues resolve. [facility] records in media with prior suboxone dosing. 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 - Continue nicotine patch - Encourage smoking cessation, consideration of Chantix - Appreciate ACT c/s as elsewhere # Obesity Obesity playing role in other active issues, such as T2DM and back pain. Patient agreeable to Weight Clinic referral. Per patient, GLP-1 was not covered by insurance. Cannot find record of medication ever being prescribed. She is also prescribed pioglitazone for DM, which is associated with weight gain. - Recommend outpatient Weight Clinic referral # Mood disorder Appears to have been previously prescribed Abilify. This was discontinued during recent admission to [facility] for unclear reasons. Patient reports she can no longer follow with prior Psych provider due to insurance coverage issues. - Atarax 25 mg Q4H PRN for anxiety #Sleep - Continue Trazodone 50 mg qhs for sleep Assessment & Plan (05/06/2024 5:48 PM EST): # Chronic low back pain present for 10-15 years, worse with standing up straight for longer periods of time. History consistent with spinal stenosis, likely secondary to degenerative spinal changes. No bowel or bladder incontinence, numbness/weakness. Suspect obesity has exacerbated symptoms and strain to lower back. - Pain management as elsewhere - Consider heat therapy, lidocaine patches - Consider outpatient PT referral at discharge for LBP - Recommend Weight Clinic post-discharge, as elsewhere # Hx of OUD denies active substance use. Reports last used heroin ~4 years ago. Previously on Suboxone, per review of chart appears patient has reported her outpatient prescriber would not prescribe short-acting opiates while she was on Suboxone so this was discontinued. Utox this admission + for opiates and BZD, which is to be expected given ongoing opioid pain medication and recent Ativan at OSH. Continue to address acute pain as elsewhere. ACT following, per note patient would prefer resumption of buprenorphine after acute medical issues resolve. - [facility] records in media with prior suboxone dosing - Appreciate ACT c/s re: ongoing mOUD discussions - Pain management as elsewhere # Tobacco use disorder active cigarette smoking [employer]GER, working on cutting back. - Continue nicotine patch - Encourage smoking cessation, consideration of Chantix - Appreciate ACT c/s as elsewhere # Obesity Obesity playing role in other active issues, such as T2DM and back pain. Patient agreeable to Weight Clinic referral. Per patient, GLP-1 was not covered by insurance. Cannot find record of this ever being prescribed. She is also prescribed pioglitazone for DM, which is associated with weight gain. - Recommend outpatient Weight Clinic referral # Mood disorder Appears to have been previously prescribed Abilify. This was discontinued during recent admission to [facility] for unclear reasons. Patient reports she can no longer follow with prior Psych provider due to insurance coverage issues. - Atarax 25 mg Q4H PRN for anxiety Assessment & Plan (05/06/2024 10:20 AM EST): # Chronic low back pain present for 10-15 years, worse with standing up straight for longer periods of time. History consistent with spinal stenosis, likely secondary to degenerative spinal changes. No bowel or bladder incontinence, numbness/weakness. Suspect obesity has exacerbated symptoms and strain to lower back. - Pain management as elsewhere - Consider heat therapy, lidocaine patches - Consider outpatient PT referral at discharge for LBP - Recommend Weight Clinic post-discharge, as elsewhere # Hx of OUD denies active substance use. Reports last used heroin ~4 years ago. Previously on Suboxone, per review of chart appears patient has reported her outpatient prescriber would not prescribe short-acting opiates while she was on Suboxone so this was discontinued. Utox this admission + for opiates and BZD, which is to be expected given ongoing opioid pain medication and recent Ativan at OSH. Continue to address acute pain as elsewhere. ACT following, per note patient would prefer resumption of buprenorphine after acute medical issues resolve. - [facility] records in media - Appreciate ACT c/s re: ongoing mOUD discussions - Pain management as elsewhere # Tobacco use disorder active cigarette smoking [employer] INS[employer] MA[employer]GER, working on cutting back. - Continue nicotine patch - Encourage smoking cessation, consideration of Chantix - Appreciate ACT c/s as elsewhere # Obesity Obesity playing role in other active issues, such as T2DM and back pain. Patient agreeable to Weight Clinic referral. Per patient, GLP-1 was not covered by insurance. Cannot find record of this ever being prescribed. She is also prescribed pioglitazone for DM, which is associated with weight gain. - Recommend outpatient Weight Clinic referral # Mood disorder Appears to have been previously prescribed Abilify. This was discontinued during recent admission to [facility] for unclear reasons. Patient reports she can no longer follow with prior Psych provider due to insurance coverage issues. - Atarax 25 mg Q4H PRN for anxiety Assessment & Plan (05/05/2024 12:13 PM EST): # Chronic low back pain present for 10-15 years, worse with standing up straight for longer periods of time. History consistent with spinal stenosis, likely secondary to degenerative spinal changes. No bowel or bladder incontinence, numbness/weakness. Suspect obesity has exacerbated symptoms and strain to lower back. - Pain management as elsewhere - Consider heat therapy, lidocaine patches - Consider outpatient PT referral at discharge for LBP - Recommend [facility] Clinic post-discharge, as elsewhere # Hx of OUD denies active substance use. Reports last used heroin ~4 years ago. Previously on Suboxone, per review of chart appears patient has reported her outpatient prescriber would not prescribe short-acting opiates while she was on Suboxone so this was discontinued. Utox this admission + for opiates and BZD, which is to be expected given ongoing opioid pain medication and recent Ativan at OSH. Continue to address acute pain as elsewhere. ACT following, per note patient would prefer resumption of buprenorphine after acute medical issues resolve. - Obtained signed release of information from [facility] 05/04, will place in chart and upload to Media tab - Appreciate ACT c/s re: ongoing mOUD discussions - Pain management as elsewhere # Tobacco use disorder active cigarette smoking [employer]GER, working on cutting back. - Continue nicotine patch - Encourage smoking cessation, consideration of Chantix - Appreciate ACT c/s as elsewhere # Obesity Obesity playing role in other active issues, such as T2DM and back pain. Patient agreeable to Weight Clinic referral. Per patient, GLP-1 was not covered by insurance. Cannot find record of this ever being prescribed. She is also prescribed pioglitazone for DM, which is associated with weight gain. - Recommend outpatient Weight Clinic referral # Mood disorder Appears to have been previously prescribed Abilify. This was discontinued during recent admission to [facility] for unclear reasons. Patient reports she can no longer follow with prior Psych provider due to insurance coverage issues. - Atarax 25 mg Q4H PRN for anxiety Assessment & Plan (05/04/2024 1:43 PM EST): # Chronic low back pain present for 10-15 years, worse with standing up straight for longer periods of time. History is consistent with spinal stenosis, likely secondary to degenerative spinal changes. No bowel or bladder incontinence, numbness/weakness. Suspect obesity has exacerbated symptoms and strain to lower back. - Pain management as elsewhere - Consider heat therapy, lidocaine patches - Consider outpatient PT referral at discharge for LBP - Recommend Weight Clinic post-discharge, as elsewhere # Hx of OUD denies active substance use. Reports last used heroin ~4 years ago. Previously on Suboxone, per review of chart appears patient has reported her outpatient prescriber would not prescribe short-acting opiates while she was on Suboxone so this was discontinued. Utox this admission + for opiates and BZD, which is to be expected given ongoing opioid pain medication and recent Ativan at OSH. Continue to address acute pain as elsewhere. ACT following, per note patient would prefer resumption of buprenorphine after acute medical issues resolve. - Obtained signed release of information from [facility] 05/04, will place in chart and upload to Media tab - Appreciate ACT c/s re: ongoing mOUD discussions - Pain management as elsewhere # Tobacco use disorder active cigarette smoking [employer]GER, working on cutting back. - Continue nicotine patch - Encourage smoking cessation, consideration of Chantix - Appreciate ACT c/s as elsewhere # Obesity Obesity playing role in other active issues, such as T2DM and back pain. Patient agreeable to Weight Clinic referral. Per patient, GLP-1 was not covered by insurance. Cannot find record of this ever being prescribed. She is also prescribed pioglitazone for DM, which is associated with weight gain. - Recommend outpatient Weight Clinic referral # Mood disorder Appears to have been previously prescribed Abilify. This was discontinued during recent admission to [facility] for unclear reasons. Patient reports she can no longer follow with prior Psych provider due to insurance coverage issues. - Atarax 25 mg Q4H PRN for anxiety Assessment & Plan (05/03/2024 4:54 PM EST): # Chronic low back pain present for 10-15 years, worse with standing up straight for longer periods of time. History is consistent with spinal stenosis, likely secondary to degenerative spinal changes. No bowel or bladder incontinence, numbness/weakness. Suspect obesity has exacerbated symptoms and strain to lower back. - Pain management as elsewhere - Consider heat therapy, lidocaine patches - Consider outpatient PT referral at discharge for LBP - Recommend Weight Clinic post-discharge, as elsewhere # Hx of OUD denies active substance use. Reports last used heroin ~4 years ago. Previously on Suboxone, per review of chart appears patient has reported her outpatient prescriber would not prescribe short-acting opiates while she was on Suboxone so this was discontinued. Utox this admission + for opiates and BZD, which is to be expected given ongoing opioid pain medication and recent Ativan at OSH. Continue to address acute pain as elsewhere. ACT following, per note patient would prefer resumption of buprenorphine after acute medical issues resolve. - Appreciate ACT c/s re: ongoing mOUD discussions - Pain management as elsewhere # Tobacco use disorder active cigarette smoking [employer], working on cutting back. - Continue nicotine patch - Encourage smoking cessation, consideration of Chantix - Appreciate ACT c/s as elsewhere # Obesity Obesity playing role in other active issues, such as T2DM and back pain. Patient agreeable to Weight Clinic referral. Per patient, GLP-1 was not covered by insurance. Cannot find record of this ever being prescribed. She is also prescribed pioglitazone for DM, which is associated with weight gain. - Recommend outpatient Weight Clinic referral # Mood disorder Appears to have been previously prescribed Abilify. This was discontinued during recent admission to [facility] for unclear reasons. Patient reports she can no longer follow with prior Psych provider due to insurance coverage issues. - Atarax 25 mg Q4H PRN for anxiety Assessment & Plan (05/02/2024 12:09 PM EST): # Chronic low back pain Patient describes pain in lower back, present for 10-15 years, worse with standing up straight for longer periods of time. History is consistent with spinal stenosis, likely secondary to degenerative spinal changes. No bowel or bladder incontinence, numbness/weakness. Suspect obesity has exacerbated symptoms and strain to lower back. - Pain management as elsewhere - Consider heat therapy, lidocaine patches - Consider outpatient PT referral at discharge for LBP - Recommend Weight Clinic post-discharge, as elsewhere # Hx of OUD Patient denies active substance use. Reports last used heroin ~4 years ago. Previously on Suboxone, per review of chart appears patient has reported her outpatient prescriber would not prescribe short-acting opiates while she was on Suboxone so this was discontinued. Utox this admission + for opiates and BZD, which is to be expected given ongoing opioid pain medication and recent Ativan at OSH. Continue to address acute pain as elsewhere. ACT following, per note patient would prefer resumption of buprenorphine after acute medical issues resolve. - Appreciate ACT c/s re: ongoing mOUD discussions - Pain management as elsewhere - Re- engage ACT once all wound procedure completed for consideration of resuming Buprenorphine as per pt's request. # Tobacco use disorder Patient with active cigarette smoking [employer], working on cutting back. - Continue nicotine patch - Encourage smoking cessation, consideration of Chantix - Appreciate ACT c/s as elsewhere # Obesity Obesity playing role in other active issues, such as T2DM and back pain. Patient agreeable to Weight Clinic referral. Per patient, GLP-1 was not covered by insurance. Cannot find record of this ever being prescribed. She is also prescribed pioglitazone for DM, which is associated with weight gain. - Recommend outpatient Weight Clinic referral # Mood disorder Appears to have been previously prescribed Abilify. This was discontinued during recent admission to [facility] for unclear reasons. Patient reports she can no longer follow with prior Psych provider due to insurance coverage issues. - Atarax 25 mg Q4H PRN for anxiety Assessment & Plan (05/01/2024 2:09 PM EST): # Chronic low back pain Patient describes pain in lower back, present for 10-15 years, worse with standing up straight for longer periods of time. History is consistent with spinal stenosis, likely secondary to degenerative spinal changes. No bowel or bladder incontinence, numbness/weakness. Suspect obesity has exacerbated symptoms and strain to lower back. - Pain management as elsewhere - Consider heat therapy, lidocaine patches - Consider outpatient PT referral at discharge for LBP - Recommend Weight Clinic post-discharge, as elsewhere # Hx of OUD Patient denies active substance use. Reports last used heroin ~4 years ago. Previously on Suboxone, per review of chart appears patient has reported her outpatient prescriber would not prescribe short-acting opiates while she was on Suboxone so this was discontinued. Utox this admission + for opiates and BZD, which is to be expected given ongoing opioid pain medication and recent Ativan at OSH. Continue to address acute pain as elsewhere. ACT following, per note patient would prefer resumption of buprenorphine after acute medical issues resolve. - Appreciate ACT c/s re: ongoing mOUD discussions - Pain management as elsewhere - Re- engage ACT once all wound procedure completed for consideration of resuming buprenorphine # Tobacco use disorder Patient with active cigarette smoking [employer], working on cutting back. - Continue nicotine patch - Encourage smoking cessation, consideration of Chantix - Appreciate ACT c/s as elsewhere # Obesity Obesity playing role in other active issues, such as T2DM and back pain. Patient agreeable to Weight Clinic referral. Per patient, GLP-1 was not covered by insurance. Cannot find record of this ever being prescribed. She is also prescribed pioglitazone for DM, which is associated with weight gain. - Recommend outpatient Weight Clinic referral # Mood disorder Appears to have been previously prescribed Abilify. This was discontinued during recent admission to [facility] for unclear reasons. Patient reports she can no longer follow with prior Psych provider due to insurance coverage issues. - Atarax 25 mg Q4H PRN for anxiety Assessment & Plan (04/30/2024 2:19 PM EST): # Chronic low back pain Patient describes pain in lower back, present for 10-15 years, worse with standing up straight for longer periods of time. History is consistent with spinal stenosis, likely secondary to degenerative spinal changes. No bowel or bladder incontinence, numbness/weakness. Suspect obesity has exacerbated symptoms and strain to lower back. - Pain management as elsewhere - Consider heat therapy, lidocaine patches - Consider outpatient PT referral at discharge for LBP - Recommend Weight Clinic post-discharge, as elsewhere # Hx of OUD Patient denies active substance use. Reports last used heroin ~4 years ago. Previously on Suboxone, per review of chart appears patient has reported her outpatient prescriber would not prescribe short-acting opiates while she was on Suboxone so this was discontinued. Utox this admission + for opiates and BZD, which is to be expected given ongoing opioid pain medication and recent Ativan at OSH. Continue to address acute pain as elsewhere. ACT following, per note patient would prefer resumption of buprenorphine after acute medical issues resolve. - Pain management as elsewhere - Appreciate ACT c/s re: ongoing mOUD discussions # Tobacco use disorder Patient with active cigarette smoking [employer], working on cutting back. - Continue nicotine patch - Encourage smoking cessation, consideration of Chantix - Appreciate ACT c/s as elsewhere # Obesity Obesity playing role in other active issues, such as T2DM and back pain. Patient agreeable to Weight Clinic referral. Per patient, GLP-1 was not covered by insurance. Cannot find record of this ever being prescribed. She is also prescribed pioglitazone for DM, which is associated with weight gain. - Recommend outpatient Weight Clinic referral # Mood disorder Appears to have been previously prescribed Abilify. This was discontinued during recent admission to [facility] for unclear reasons. Patient reports she can no longer follow with prior Psych provider due to insurance coverage issues. - Atarax 25 mg Q4H PRN for anxiety Assessment & Plan (04/29/2024 11:52 AM EST): # Chronic low back pain Patient describes pain in lower back, present for 10-15 years, worse with standing up straight for longer periods of time. History is consistent with spinal stenosis, likely secondary to degenerative spinal changes. No bowel or bladder incontinence, numbness/weakness. Suspect obesity has exacerbated symptoms and strain to lower back. - Pain management as elsewhere - Consider heat therapy, lidocaine patches - Consider outpatient PT referral at discharge for LBP - Recommend Weight Clinic post-discharge, as elsewhere # Hx of OUD Patient denies active substance use. Reports last used heroin ~4 years ago. Previously on Suboxone, per review of chart appears patient has reported her outpatient prescriber would not prescribe short-acting opiates while she was on Suboxone so this was discontinued. Utox this admission + for opiates and BZD, which is to be expected given ongoing opioid pain medication and recent Ativan at OSH. Continue to address acute pain as elsewhere. ACT following, per note patient would prefer resumption of buprenorphine after acute medical issues resolve. - Pain management as elsewhere - Appreciate ACT c/s re: ongoing mOUD discussions # Tobacco use disorder Patient with active cigarette smoking [employer], working on cutting back. - Continue nicotine patch - Encourage smoking cessation, consideration of Chantix - Appreciate ACT c/s as elsewhere # Obesity Obesity playing role in other active issues, such as T2DM and back pain. Patient agreeable to Weight Clinic referral. Per patient, GLP-1 was not covered by insurance. Cannot find record of this ever being prescribed. She is also prescribed pioglitazone for DM, which is associated with weight gain. - Recommend outpatient Weight Clinic referral # Mood disorder Appears to have been previously prescribed Abilify. This was discontinued during recent admission to [facility] for unclear reasons. Patient reports she can no longer follow with prior Psych provider due to insurance coverage issues. - Atarax 25 mg Q4H PRN for anxiety Assessment & Plan (04/28/2024 11:27 AM EST): # Chronic low back pain Patient describes pain in lower back, present for 10-15 years, worse with standing up straight for longer periods of time. History is consistent with spinal stenosis, likely secondary to degenerative spinal changes. No bowel or bladder incontinence, numbness/weakness. Suspect obesity has exacerbated symptoms and strain to lower back. - Pain management as elsewhere - Consider heat therapy, lidocaine patches - Consider outpatient PT referral at discharge for LBP - Recommend Weight Clinic post-discharge, as elsewhere # Hx of OUD Patient denies active substance use. Reports last used heroin ~4 years ago. Previously on Suboxone, per review of chart appears patient has reported her outpatient prescriber would not prescribe short-acting opiates while she was on Suboxone so this was discontinued. Utox this admission + for opiates and BZD, which is to be expected given ongoing opioid pain medication and recent Ativan at OSH. Continue to address acute pain as elsewhere. ACT following, per note patient would prefer resumption of buprenorphine after acute medical issues resolve. - Pain management as elsewhere - Appreciate ACT c/s re: ongoing mOUD discussions # Tobacco use disorder Patient with active cigarette smoking [employer], working on cutting back. - Continue nicotine patch - Encourage smoking cessation, consideration of Chantix - Appreciate ACT c/s as elsewhere # Obesity Obesity playing role in other active issues, such as T2DM and back pain. Patient agreeable to Weight Clinic referral. Per patient, GLP-1 was not covered by insurance. Cannot find record of this ever being prescribed. She is also prescribed pioglitazone for DM, which is associated with weight gain. - Recommend outpatient Weight Clinic referral # Mood disorder Appears to have been previously prescribed Abilify. This was discontinued during recent admission to [facility] for unclear reasons. Patient reports she can no longer follow with prior Psych provider due to insurance coverage issues. - Atarax 25 mg Q4H PRN for anxiety Assessment & Plan (04/27/2024 11:18 AM EST): # Chronic low back pain Patient describes pain in lower back, present for 10-15 years, worse with standing up straight for longer periods of time. History is consistent with spinal stenosis, likely secondary to degenerative spinal changes. No bowel or bladder incontinence, numbness/weakness. Suspect obesity has exacerbated symptoms and strain to lower back. - Pain management as elsewhere - Consider heat therapy, lidocaine patches - Consider outpatient PT referral at discharge for LBP - Recommend Weight Clinic post-discharge, as elsewhere # Hx of OUD Patient denies active substance use. Reports last used heroin ~4 years ago. Previously on Suboxone, per review of chart appears patient has reported her outpatient prescriber would not prescribe short-acting opiates while she was on Suboxone so this was discontinued. Utox this admission + for opiates and BZD, which is to be expected given ongoing opioid pain medication and recent Ativan at OSH. Continue to address acute pain as elsewhere. ACT following, per note patient would prefer resumption of buprenorphine after acute medical issues resolve. - Pain management as elsewhere - Appreciate ACT c/s re: ongoing mOUD discussions # Tobacco use disorder Patient with active cigarette smoking [employer], working on cutting back. - Continue nicotine patch - Encourage smoking cessation, consideration of Chantix - Appreciate ACT c/s as elsewhere # Obesity Obesity playing role in other active issues, such as T2DM and back pain. Patient agreeable to Weight Clinic referral. Per patient, GLP-1 was not covered by insurance. Cannot find record of this ever being prescribed. She is also prescribed pioglitazone for DM, which is associated with weight gain. - Recommend outpatient Weight Clinic referral # Mood disorder Appears to have been previously prescribed Abilify. This was discontinued during recent admission to [facility] for unclear reasons. Patient reports she can no longer follow with prior Psych provider due to insurance coverage issues. - Atarax 25 mg Q4H PRN for anxiety Assessment & Plan (04/26/2024 12:57 PM EST): # Chronic low back pain Patient describes pain in lower back, present for 10-15 years, worse with standing up straight for longer periods of time. History is consistent with spinal stenosis, likely secondary to degenerative spinal changes. No bowel or bladder incontinence, numbness/weakness. Suspect obesity has exacerbated symptoms and strain to lower back. - Pain management as elsewhere - Consider heat therapy, lidocaine patches - Consider outpatient PT referral at discharge for LBP - Recommend Weight Clinic post-discharge, as elsewhere # Hx of OUD Patient denies active substance use. Reports last used heroin ~4 years ago. Previously on Suboxone, per review of chart appears patient has reported her outpatient prescriber would not prescribe short-acting opiates while she was on Suboxone so this was discontinued. Utox this admission + for opiates and BZD, which is to be expected given ongoing opioid pain medication and recent Ativan at OSH. Continue to address acute pain as elsewhere. ACT following, per note patient would prefer resumption of buprenorphine after acute medical issues resolve. - Pain management as elsewhere - Appreciate ACT c/s re: ongoing mOUD discussions # Tobacco use disorder Patient with active cigarette smoking [employer], working on cutting back. - Continue nicotine patch - Encourage smoking cessation, consideration of Chantix - Appreciate ACT c/s as elsewhere # Obesity Obesity playing role in other active issues, such as T2DM and back pain. Patient agreeable to Weight Clinic referral. Per patient, GLP-1 was not covered by insurance. Cannot find record of this ever being prescribed. She is also prescribed pioglitazone for DM, which is associated with weight gain. - Recommend outpatient Weight Clinic referral # Mood disorder Appears to have been previously prescribed Abilify. This was discontinued during recent admission to [facility] for unclear reasons. Patient reports she can no longer follow with prior Psych provider due to insurance coverage issues. - Atarax 25 mg Q4H PRN for anxiety Assessment & Plan (04/25/2024 2:01 PM EST): # Chronic low back pain Patient describes pain in lower back, present for 10-15 years, worse with standing up straight for longer periods of time. History is consistent with spinal stenosis, likely secondary to degenerative spinal changes. No bowel or bladder incontinence, numbness/weakness. Suspect obesity has exacerbated symptoms and strain to lower back. - Pain management as elsewhere - Consider heat therapy, lidocaine patches - Consider outpatient PT referral at discharge for LBP - Recommend Weight Clinic post-discharge, as elsewhere # Hx of OUD Patient denies active substance use. Reports last used heroin ~4 years ago. Previously on Suboxone, per review of chart appears patient has reported her outpatient prescriber would not prescribe short-acting opiates while she was on Suboxone so this was discontinued. Utox this admission + for opiates and BZD, which is to be expected given ongoing opioid pain medication and recent Ativan at OSH. - Pain management as elsewhere - Appreciate ACT c/s, as elsewhere # Tobacco use disorder Patient with active cigarette smoking [employer], working on cutting back. - Continue nicotine patch - Encourage smoking cessation, consideration of Chantix - Appreciate ACT c/s as elsewhere # Obesity Obesity playing role in other active issues, such as T2DM and back pain. Patient agreeable to Weight Clinic referral. Per patient, GLP-1 was not covered by insurance. Cannot find record of this ever being prescribed. She is also prescribed pioglitazone for DM, which is associated with weight gain. - Recommend outpatient Weight Clinic referral # Mood disorder Appears to have been previously prescribed Abilify. This was discontinued during recent admission to [facility] for unclear reasons. Patient reports she can no longer follow with prior Psych provider due to insurance coverage issues. - Atarax 25 mg Q4H PRN for anxiety Assessment & Plan (04/24/2024 2:27 PM EST): # Chronic low back pain Patient describes pain in lower back, present for 10-15 years, worse with standing up straight for longer periods of time. History is consistent with spinal stenosis, likely secondary to degenerative spinal changes. No bowel or bladder incontinence, numbness/weakness. Suspect obesity has exacerbated symptoms and strain to lower back. - Pain management as elsewhere - Consider heat therapy, lidocaine patches - Consider outpatient PT referral at discharge for LBP - Recommend Weight Clinic post-discharge, as elsewhere # Hx of OUD Patient denies active substance use. Previously on Suboxone, per review of chart appears patient has reported her outpatient prescriber would not prescribe short-acting opiates while she was on Suboxone so this was discontinued. Utox this admission + for opiates and BZD, which is to be expected given ongoing opioid pain medication and recent Ativan use at OSH. - Pain management as elsewhere - Consider ACT involvement for resumption of Suboxone pending pain regimen and outpatient prescriber plan as noted elsewhere # Hx of tobacco use disorder - Continue nicotine patch - Encourage smoking cessation, consideration of Chantix # Obesity Obesity playing role in other active issues, such as T2DM and back pain. Patient agreeable to Weight Clinic referral. Per patient, GLP-1 was not covered by insurance. Cannot find record of this ever being prescribed. She is also prescribed pioglitazone for DM, which is associated with weight gain. - Recommend outpatient Weight Clinic referral # Mood disorder Appears to have been previously prescribed Abilify. This was discontinued during recent admission to [facility] for unclear reasons. Patient reports she can no longer follow with prior Psych provider due to insurance coverage issues. - Atarax 25 mg Q4H PRN for anxiety Assessment & Plan (04/23/2024 3:34 PM EST): # Hx of OUD Previously on Suboxone, per review of chart appears patient has reported her outpatient prescriber would not prescribe short-acting opiates while she was on Suboxone so this was discontinued. - Pain management as elsewhere - Consider ACT involvement for resumption of Suboxone pending pain regimen and outpatient prescriber plan as noted elsewhere # Hx of tobacco use disorder - Nicotine patch - Encourage smoking cessation Open wound of skin 04/22/2024 Ulcer of leg, chronic, right, with unspecified s everity 04/22/2024 Assessment & Plan (05/12/2024 1:43 PM EST): # C/f venous stasis (w/ SSTI) vs chronic diabetic ulcer Wound present since ~September 2023. Initially sustained an injury to R calf after being scraped by metal; and given PMH was thought to be an infected diabetic ulcer. Multiple admits to OSH (11/01-11/04, 11/14-11/15, 12/29-01/04), for ?recurrent infection s/p many rounds of antibiotics without improvement. Had been seen previously by Vascular Surgery, ID and dermatology - protracted recovery in the setting of leaving AMA numerous times. This admission p/w ongoing pain, seen by Dermatology who felt wound appeared more consistent with diabetic ulcer vs atypical infection vs lymphoma. Underwent punch biopsy 04/22 which was consistent with venous stasis (w/ SSTI). WBC jumped from 13 -->26 on 04/30 & patient began to feel increased edema/erythema on RLE and was started on broad spectrum antibiotics. Most recent CT from 04/09 without any evidence of osteomyelitis. Wound Cx 04/28 grew ecoli, klebsiella, proteus, corynebacterium and morganella. Remaining culture data has reassuringly remained negative; as well as rheumatological work-up including RF, anti-CCP, hepatitis serologies, lupus anticoagulant, MARISSA , ANCA, Tspot negative. Patient with factors for poor/impaired healing include poorly controlled DM and tobacco use. S/p OR debridement on 04/28, and 07/03 with xenograft. Course out antibiotics of IV vanco and cefepime until 05/13. wound vac removed and patient with mildly improved pain. Plan for discharge with follow up appointments with plastics on 05/13. - Surgery following; dressings will be removed at bedside on Sunday 05/13 - Non weight bearing RLE with bathroom privileges, no ROM to R ankle - Cont IV cefepime (05/01-05/13) & Vanc (05/05-05/13) - Antibiotics not needed on discharge - Appreciate Chronic Pain & ACT recs - Inpatient Pain management: - Tylenol 975 mg TID - Dilaudid 6-8 mg PO & - Transitioned from gabapentin to Lyrica 50 mg TID - See outpatient pain plan below - Continue bowel regimen given opioids: Miralax, senna, Assessment & Plan (05/11/2024 2:44 PM EST): # C/f venous stasis (w/ SSTI) vs chronic diabetic ulcer Wound present since ~September 2023. Initially sustained an injury to R calf after being scraped by metal; and given PMH was thought to be an infected diabetic ulcer. Multiple admits to OSH (11/01-11/04, 11/14-11/15, 12/29-01/04), for ?recurrent infection s/p many rounds of antibiotics without improvement. Had been seen previously by Vascular Surgery, ID and dermatology - protracted recovery in the setting of leaving AMA numerous times. This admission p/w ongoing pain, seen by Dermatology who felt wound appeared more consistent with diabetic ulcer vs atypical infection vs lymphoma. Underwent punch biopsy 04/22 which was consistent with venous stasis (w/ SSTI). WBC jumped from 13 -->26 on 04/30 & patient began to feel increased edema/erythema on RLE and was started on broad spectrum antibiotics. Most recent CT from 04/09 without any evidence of osteomyelitis. Wound Cx 04/28 grew ecoli, klebsiella, proteus, corynebacterium and morganella. Remaining culture data has reassuringly remained negative; as well as rheumatological work-up including RF, anti-CCP, hepatitis serologies, lupus anticoagulant, MARISSA , ANCA, Tspot negative. Patient with factors for poor/impaired healing include poorly controlled DM and tobacco use. S/p OR debridement on 04/28, and 07/03 with xenograft. Course out antibiotics of IV vanco and cefepime until 05/13. wound vac removed and patient with mildly improved pain. - Surgery following; dressings will be removed at bedside on Sunday 05/13 - Non weight bearing RLE with bathroom privileges, no ROM to R ankle - Cont IV cefepime (05/01-05/13) & Vanc (05/05-05/13) - Antibiotics not needed on discharge - Appreciate Chronic Pain & ACT recs - Inpatient Pain management: - Tylenol 975 mg TID - Dilaudid 6-8 mg PO & Morphine 4-6 mg IV PRN - call RC if patient in pain & HR <50 - Transitioned from gabapentin to Lyrica 50 mg TID - See outpatient pain plan below - Continue bowel regimen given opioids: Miralax, senna, Assessment & Plan (05/10/2024 5:19 PM EST): # C/f venous stasis (w/ SSTI) vs chronic diabetic ulcer Wound Background: Wound present since ~September 2023. [facility] records reveal that patient sustained an injury to R calf (scraped by metal) and area was subsequently erythematous and tender. Wound was initially thought to be an infected diabetic ulcer. Subsequently admitted to [facility] multiple times (11/01-11/04, 11/14-11/15, 12/29-01/04), for ?recurrent infection s/p many rounds of antibiotics without improvement. During 12/29-01/04 admission, Vascular Surgery and ID consulted & biopsy c/w PG, no tumor or vasculitis identified. She was referred to Dermatology. She had ongoing presentations w/ with intermittent antibiosis (02/12 - left AMA, 02/27, 03/21-03/29, 03/30, 04/09-04/12, 04/19-04/21). Dermatology in mid-March started her on clobetasol topical and minocycline for PG. Again returned to [facility] & had a popliteal nerve block with catheter for pain 04/19, which patient reports was ineffective. No e/o osteo on CT scan (most recently 04/09). This admission p/w ongoing pain, seen by Dermatology who felt wound appeared more consistent with diabetic ulcer vs atypical infection vs lymphoma. Underwent punch biopsy 04/22. Was started on empiric IV Vanc/Cefp for wound/soft tissue infection, but discontinued on 04/23 with plan to monitor improvement off of antibiotics. Final biopsy result c/w venous stasis (w/ SSTI) rather than rheumatologic/vasculitic (neutrophilic dermatosis, PG), or malignant. Also less likely rheumatologic/vasculitic or PG given patient w/o typical s/s that may coexist with PG, per Rheumatology. WBC jumped from 13 -->26 on 04/30 & patient began to feel increased edema/erythema on RLE. CTX and vancomycin started 04/30 with good effect. Wound Cx 04/28 grew ecoli, klebsiella, proteus, corynebacterium and morganella. Blood cx NGTD. Urine cx +enterococcus, though no urinary symptoms. Abx switched to vancomycin and cefepime 05/01. Vancomycin initially stopped 05/04 due to susceptibilities, but then wound grew new enterococcus & WBC melecio off Vancomycin abx --> restarted 05/05. Patient with factors for poor/impaired healing include poorly controlled DM and tobacco use. S/p OR debridement, wound vac removed and patient with mildly improved pain. Diagnostics: - Punch biopsy 04/25 posterior R calf, path c/w venous stasis ulceration, no PG. - Tissue culture 04/28 + Ecoli, klebsiella, proteus, corynebacterium, morganella, enterococcus - Anaerobic cx wound 04/28 +GNRs - Blood Cx from 04/30 - NGTD >7 days - Urine Cx +few GNRs, enterococcus - Fungal Cx 04/22 - NGTD >8 days - Mycobacterial without AFB negative - RF, anti-CCP, hepatitis serologies, lupus anticoagulant, MARISSA , ANCA, Tspot negative - C3 elevated at 180, C4 normal - Hypercoagulation panel neg Interventions: - S/p wound debridement in OR 04/28 with vac placement - s/p OR 05/03 w/ xenograft - s/p IV vanc (04/30-05/03) & CTX (04/30- 05/01) Treatment: - Appreciate Surgery recs - Non weight bearing RLE with bathroom privileges, no ROM to R ankle - Dressings will be removed at bedside on Sunday 05/13 - Cont IV cefepime (05/01-05/13) & Vanc (05/05-05/13) - Antibiotics not needed on discharge - Appreciate Chronic Pain & ACT recs - Inpatient Pain management: - Tylenol 975 mg TID - Dilaudid 6-8 mg PO & Morphine 4-6 mg IV PRN - call RC if patient in pain & HR <50 - Transitioned from gabapentin to Lyrica 50 mg TID - See outpatient pain plan below - Appreciate Burn recs, following until autograft - Appreciate Wound recs - Nursing dressing changes - Saturate entire wrapping with Dakin's 0.125% every 6 hours - Appreciate Derm recs, signed off 04/23 - Continue bowel regimen given opioids: Miralax, senna, - Acute Pain Service consulted for popliteal nerve block, not recommended given lack of prior efficacy, unlikely to provide lasting benefit Assessment & Plan (05/09/2024 4:04 PM EST): # C/f venous stasis (w/ SSTI) vs chronic diabetic ulcer Wound Background: Wound present since ~September 2023. [facility] records reveal that patient sustained an injury to R calf (scraped by metal) and area was subsequently erythematous and tender. Wound was initially thought to be an infected diabetic ulcer. Subsequently admitted to [facility] multiple times (11/01-11/04, 11/14-11/15, 12/29-01/04), for ?recurrent infection s/p many rounds of antibiotics without improvement. During 12/29-01/04 admission, Vascular Surgery and ID consulted & biopsy c/w PG, no tumor or vasculitis identified. She was referred to Dermatology. She had ongoing presentations w/ with intermittent antibiosis (02/12 - left AMA, 02/27, 03/21-03/29, 03/30, 04/09-04/12, 04/19-04/21). Dermatology in mid-March started her on clobetasol topical and minocycline for PG. Again returned to [facility] & had a popliteal nerve block with catheter for pain 04/19, which patient reports was ineffective. No e/o osteo on CT scan (most recently 04/09). This admission p/w ongoing pain, seen by Dermatology who felt wound appeared more consistent with diabetic ulcer vs atypical infection vs lymphoma. Underwent punch biopsy 04/22. Was started on empiric IV Vanc/Cefp for wound/soft tissue infection, but discontinued on 04/23 with plan to monitor improvement off of antibiotics. Final biopsy result c/w venous stasis (w/ SSTI) rather than rheumatologic/vasculitic (neutrophilic dermatosis, PG), or malignant. Also less likely rheumatologic/vasculitic or PG given patient w/o typical s/s that may coexist with PG, per Rheumatology. WBC jumped from 13 -->26 on 04/30 & patient began to feel increased edema/erythema on RLE. CTX and vancomycin started 04/30 with good effect. Wound Cx 04/28 grew ecoli, klebsiella, proteus, corynebacterium and morganella. Blood cx NGTD. Urine cx +enterococcus, though no urinary symptoms. Abx switched to vancomycin and cefepime 05/01. Vancomycin initially stopped 05/04 due to susceptibilities, but then wound grew new enterococcus & WBC melecio off Vancomycin abx --> restarted 05/05. Patient with factors for poor/impaired healing include poorly controlled DM and tobacco use. 05/08, Patient with worsening pain and new erythema/warmth on lower calf and heal (below vacuum dressing) without ankle joint involvement. Notified surgery and they state they will follow up during OR debridement scheduled on 05/09. Diagnostics: - Punch biopsy 04/25 posterior R calf, path c/w venous stasis ulceration, no PG. - NOTE: No sutures seen on clinical exam to remove, likely removed with OR debridement - discussed with Surgery (MD Bree) and they will assess 05/09 w/ next vac change - Tissue culture 04/28 + Ecoli, klebsiella, proteus, corynebacterium, morganella, enterococcus - Anaerobic cx wound 04/28 +GNRs - Blood Cx from 04/30 - NGTD >7 days - Urine Cx +few GNRs, enterococcus - Fungal Cx 04/22 - NGTD >8 days - Mycobacterial without AFB negative - RF, anti-CCP, hepatitis serologies, lupus anticoagulant, MARISSA , ANCA, Tspot negative - C3 elevated at 180, C4 normal - Hypercoagulation panel neg Interventions: - S/p wound debridement in OR 04/28 with vac placement - s/p OR 05/03 w/ xenograft - s/p ketorlac for pain - s/p IV vanc (04/30-05/03) & CTX (04/30- 05/01) Treatment: - Appreciate Surgery recs - Stick I&Os - No weight bearing restrictions - Follow up w/ Burn Surgery if any punch biopsy sutures seen with OR debridement 05/09 - Cont IV cefepime (05/01- ) & Vanc (05/05 - ) - Follow up Surgical team recs on course length depending how wound looks in OR 05/09. Would favor at least 7-14 day course. - Appreciate Chronic Pain & ACT recs - Inpatient Pain management: - Tylenol 975 mg TID - Dilaudid 6-8 mg PO & Morphine 4-6 mg IV PRN - call RC if patient in pain & HR <50 - Transitioned from gabapentin to Lyrica 50 mg TID - See outpatient pain plan below - Appreciate Burn recs, following until autograft - Appreciate Wound recs - Nursing dressing changes - Saturate entire wrapping with Dakin's 0.125% every 6 hours - Appreciate Derm recs, signed off 04/23 - Continue bowel regimen given opioids: Miralax, senna, - Acute Pain Service consulted for popliteal nerve block, not recommended given lack of prior efficacy, unlikely to provide lasting benefit Assessment & Plan (05/08/2024 2:24 PM EST): # C/f venous stasis (w/ SSTI) vs chronic diabetic ulcer Wound Background: Wound present since ~September 2023. [facility] records reveal that patient sustained an injury to R calf (scraped by metal) and area was subsequently erythematous and tender. Wound was initially thought to be an infected diabetic ulcer. Subsequently admitted to [facility] multiple times (11/01-11/04, 11/14-11/15, 12/29-01/04), for ?recurrent infection s/p many rounds of antibiotics without improvement. During 12/29-01/04 admission, Vascular Surgery and ID consulted & biopsy c/w PG, no tumor or vasculitis identified. She was referred to Dermatology. She had ongoing presentations w/ with intermittent antibiosis (02/12 - left AMA, 02/27, 03/21-03/29, 03/30, 04/09-04/12, 04/19-04/21). Dermatology in mid-March started her on clobetasol topical and minocycline for PG. Again returned to [facility] & had a popliteal nerve block with catheter for pain 04/19, which patient reports was ineffective. No e/o osteo on CT scan (most recently 04/09). This admission p/w ongoing pain, seen by Dermatology who felt wound appeared more consistent with diabetic ulcer vs atypical infection vs lymphoma. Underwent punch biopsy 04/22. Was started on empiric IV Vanc/Cefp for wound/soft tissue infection, but discontinued on 04/23 with plan to monitor improvement off of antibiotics. Final biopsy result c/w venous stasis (w/ SSTI) rather than rheumatologic/vasculitic (neutrophilic dermatosis, PG), or malignant. Also less likely rheumatologic/vasculitic or PG given patient w/o typical s/s that may coexist with PG, per Rheumatology. WBC jumped from 13 -->26 on 04/30 & patient began to feel increased edema/erythema on RLE. CTX and vancomycin started 04/30 with good effect. Wound Cx 04/28 grew ecoli, klebsiella, proteus, corynebacterium and morganella. Blood cx NGTD. Urine cx +enterococcus, though no urinary symptoms. Abx switched to vancomycin and cefepime 05/01. Vancomycin initially stopped 05/04 due to susceptibilities, but then wound grew new enterococcus & WBC melecio off Vancomycin abx --> restarted 05/05. Patient with factors for poor/impaired healing include poorly controlled DM and tobacco use. 05/08, Patient with worsening pain and new erythema/warmth on lower calf and heal (below vacuum dressing) without ankle joint involvement. Notified surgery and they state they will follow up during OR debridement scheduled on 05/09. Diagnostics: - Punch biopsy 04/25 posterior R calf, path c/w venous stasis ulceration, no PG. - NOTE: No sutures seen on clinical exam to remove, likely removed with OR debridement - discussed with Surgery (MD Bree) and they will assess 05/09 w/ next vac change - Tissue culture 04/28 + Ecoli, klebsiella, proteus, corynebacterium, morganella, enterococcus - Anaerobic cx wound 04/28 +GNRs - Blood Cx from 04/30 - NGTD >7 days - Urine Cx +few GNRs, enterococcus - Fungal Cx 04/22 - NGTD >8 days - Mycobacterial without AFB negative - RF, anti-CCP, hepatitis serologies, lupus anticoagulant, MARISSA , ANCA, Tspot negative - C3 elevated at 180, C4 normal - Hypercoagulation panel neg Interventions: - S/p wound debridement in OR 04/28 with vac placement - s/p OR 05/03 w/ xenograft - s/p ketorlac for pain - s/p IV vanc (04/30-05/03) & CTX (04/30- 05/01) Treatment: - Appreciate Surgery recs - Pending vac replacement w/ final grafting 05/09 with Burn Surgery team - Hold DVT ppx starting 05/08 PM and resume after procedure - NPO 05/09 0001 - Stick I&Os - No weight bearing restrictions - Cont IV cefepime (05/01- ) & Vanc (05/05 - ) - Surgical team will weigh in on course length depending how wound looks in OR 05/09. Would favor at least 7-14 day course - Appreciate Chronic Pain & ACT recs - Pain management: - Tylenol 975 mg TID - Dilaudid 6-8 mg PO & Morphine 4-6 mg IV PRN - call RC if patient in pain & HR <50 - Transitioned from gabapentin to Lyrica 50 mg TID - Discharge Plan: - After surgery, when pain stabilized, start buprenorphine and increase to goal suboxone 2mg BID - Up titrate suboxone as outpatient as dilaudid tapers off (ACT will coordinate with [facility] outpt buprenorphine clinic) - Appreciate Burn recs, following until autograft - Appreciate Wound recs - Nursing dressing changes - Saturate entire wrapping with Dakin's 0.125% every 6 hours - Appreciate Derm recs, signed off 04/23 - Continue bowel regimen given opioids: Miralax, senna, - Acute Pain Service consulted for popliteal nerve block, not recommended given lack of prior efficacy, unlikely to provide lasting benefit Assessment & Plan (05/07/2024 3:39 PM EST): # C/f venous stasis (w/ SSTI) vs chronic diabetic ulcer Wound Background: Wound present since ~September 2023. [facility] records reveal that patient sustained an injury to R calf (scraped by metal) and area was subsequently erythematous and tender. Wound was initially thought to be an infected diabetic ulcer. Subsequently admitted to [facility] multiple times (11/01-11/04, 11/14-11/15, 12/29-01/04), for ?recurrent infection s/p many rounds of antibiotics without improvement. During 12/29-01/04 admission, Vascular Surgery and ID consulted & biopsy c/w PG, no tumor or vasculitis identified. She was referred to Dermatology. She had ongoing presentations w/ with intermittent antibiosis (02/12 - left AMA, 02/27, 03/21-03/29, 03/30, 04/09-04/12, 04/19-04/21). Dermatology in mid-March started her on clobetasol topical and minocycline for PG. Again returned to [facility] & had a popliteal nerve block with catheter for pain 04/19, which patient reports was ineffective. No e/o osteo on CT scan (most recently 04/09). This admission p/w ongoing pain, seen by Dermatology who felt wound appeared more consistent with diabetic ulcer vs atypical infection vs lymphoma. Underwent punch biopsy 04/22. Was started on empiric IV Vanc/Cefp for wound/soft tissue infection, but discontinued on 04/23 with plan to monitor improvement off of antibiotics. Final biopsy result c/w venous stasis (w/ SSTI) rather than rheumatologic/vasculitic (neutrophilic dermatosis, PG), or malignant. Also less likely rheumatologic/vasculitic or PG given patient w/o typical s/s that may coexist with PG, per Rheumatology. WBC jumped from 13 -->26 on 04/30 & patient began to feel increased edema/erythema on RLE. CTX and vancomycin started 04/30 with good effect. Wound Cx 04/28 grew ecoli, klebsiella, proteus, corynebacterium and morganella. Blood cx NGTD. Urine cx +enterococcus, though no urinary symptoms. Abx switched to vancomycin and cefepime 05/01. Vancomycin initially stopped 05/04 due to susceptibilities, but then wound grew new enterococcus & WBC melecio off Vancomycin abx --> restarted 05/05. Patient with factors for poor/impaired healing include poorly controlled DM and tobacco use. Patient with RLE pain stabilizing, now pending final OR debridement 05/09. Diagnostics: - Punch biopsy 04/25 posterior R calf, path c/w venous stasis ulceration, no PG. - NOTE: No sutures seen on clinical exam to remove, likely removed with OR debridement - discussed with Surgery (MD Bree) and they will assess 05/09 w/ next vac change - Tissue culture 04/28 + Ecoli, klebsiella, proteus, corynebacterium, morganella, enterococcus - Anaerobic cx wound 04/28 +GNRs - Blood Cx from 04/30 - NGTD >7 days - Urine Cx +few GNRs, enterococcus - Fungal Cx 04/22 - NGTD >8 days - Mycobacterial without AFB negative - RF, anti-CCP, hepatitis serologies, lupus anticoagulant, MARISSA , ANCA, Tspot negative - C3 elevated at 180, C4 normal - Hypercoagulation panel neg Interventions: - S/p wound debridement in OR 04/28 with vac placement - s/p OR 05/03 w/ xenograft - s/p ketorlac for pain - s/p IV vanc (04/30-05/03) & CTX (04/30- 05/01) Treatment: - Appreciate Surgery recs - Pending vac replacement w/ final grafting ~05/09 with Burn Surgery team - Stick I&Os - Continue Lovenox for DVT ppx - No weight bearing restrictions - Cont IV cefepime (05/01- ) & Vanc (05/05 - ) - Surgical team will weigh in on course length depending how wound looks in OR 05/09. Would favor at least 7-14 day course - Appreciate Chronic Pain & ACT recs - Pain management: - Tylenol 975 mg TID - Dilaudid 6-8 mg PO & Morphine 4-6 mg IV PRN - call RC if patient in pain & HR <50 - Transitioned from gabapentin to Lyrica 50 mg TID - Discharge Plan: - After surgery, when pain stabilized, start buprenorphine and increase to goal suboxone 2mg BID - Up titrate suboxone as outpatient as dilaudid tapers off (ACT will coordinate with [facility] outpt buprenorphine clinic) - Appreciate Burn recs, following until autograft - Appreciate Wound recs - Nursing dressing changes - Saturate entire wrapping with Dakin's 0.125% every 6 hours - Appreciate Derm recs, signed off 04/23 - Continue bowel regimen given opioids: Miralax, senna, - Acute Pain Service consulted for popliteal nerve block, not recommended given lack of prior efficacy, unlikely to provide lasting benefit Assessment & Plan (05/06/2024 10:20 AM EST): # 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 [facility] records reveal that patient sustained an injury to R calf (scraped by metal) and area was subsequently erythematous and tender. Wound was initially thought to be an infected diabetic ulcer. Subsequently admitted to [facility] multiple times (11/01-11/04, 11/14-11/15, 12/29-01/04), for ?recurrent infection s/p many rounds of antibiotics without improvement. During 12/29-01/04 admission, Vascular Surgery and ID consulted & biopsy c/w PG, no tumor or vasculitis identified. She was referred to Dermatology. She had ongoing presentations w/ with intermittent antibiosis (02/12 - left AMA, 02/27, 03/21-03/29, 03/30, 04/09-04/12, 04/19-04/21). Dermatology in mid-March started her on clobetasol topical and minocycline for PG. Again returned to [facility] & had a popliteal nerve block with catheter for pain 04/19, which patient reports was ineffective. No e/o osteo on CT scan (most recently 04/09). This admission p/w ongoing pain, seen by Dermatology who felt wound appeared more consistent with diabetic ulcer vs atypical infection vs lymphoma. Patient reports that she felt wound was worsening with clobetasol, however unclear how long treatment was attempted d/t multiple hospitalizations after starting. Underwent punch biopsy 04/22 and was started on IV Vanc/Cefp for wound/soft tissue infection, but then discontinued with plan to monitor off of antibiotics. Discussed with Rheumatology 04/24 - in absence of other signs or symptoms of vasculitis or connective tissue disorder (which may coexist with PG), final biopsy result c/w venous stasis and not c/w PG. WBC jumped from 13 -->26 on 04/30 & patient began to feel increased edema/erythema no RLE; abx restarted with good effect. Wound 04/28 growing ecoli, klebsiella, proteus, corynebacterium and morganella. Blood cx NGTD. Urine cx +enterococcus, though no urinary symptoms. Vancomycin initially stopped due to susceptibilities, but then wound grew new enterococcus & WBC melecio off Vancomycin abx --> restarted 05/05. Risk factors for poor/impaired healing include poorly controlled DM and tobacco use. Dx: - Punch biopsy 04/25 posterior R calf, path c/w venous stasis ulceration, no PG. -------No sutures seen on exam to remove, likely removed with OR debridement - discussed with Surgery (MD Bree) and they will assess 05/09 w/ next vac change - Tissue culture 04/28 + Ecoli, klebsiella, proteus, corynebacterium, morganella, enterococcus - anaerobic cx wound 04/28 +GNRs - f/u Blood cx - NGTD - Urine cx +few GNRs, enterococcus - f/u Fungal pre-mullen negative - Mycobacterial without AFB - negative - RF, anti-CCP, hepatitis serologies, lupus anticoagulant, MARISSA , ANCA, Tspot negative - C3 elevated at 180, C4 normal - hypercoagulation panel neg Tx: - Appreciate Derm recs, signed off - Appreciate Inpatient Wound consult and Burn recs - S/p wound debridement in OR 04/28 with vac placement - s/p OR 05/03 w/xenograft - Per Gong, next vac replacement w/final grafting ~05/09 - Cont IV cefepime (05/01- ) & Vanc (05/05 - ) ------Surgical team will weigh in on course length depending how wound looks in OR 05/09. 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 [facility] records reveal that patient sustained an injury to R calf (scraped by metal) and area was subsequently erythematous and tender. Wound was initially thought to be an infected diabetic ulcer. Subsequently admitted to [facility] multiple times (11/01-11/04, 11/14-11/15, 12/29-01/04), for ?recurrent infection s/p many rounds of antibiotics without improvement. During 12/29-01/04 admission, Vascular Surgery and ID consulted & biopsy c/w PG, no tumor or vasculitis identified. She was referred to Dermatology. She had ongoing presentations w/ with intermittent antibiosis (02/12 - left AMA, 02/27, 03/21-03/29, 03/30, 04/09-04/12, 04/19-04/21). Dermatology in mid-March started her on clobetasol topical and minocycline for PG. Again returned to [facility] & had a popliteal nerve block with catheter for pain 04/19, which patient reports was ineffective. No e/o osteo on CT scan (most recently 04/09). This admission p/w ongoing pain, seen by Dermatology who felt wound appeared more consistent with diabetic ulcer vs atypical infection vs lymphoma. Patient reports that she felt wound was worsening with clobetasol, however unclear how long treatment was attempted d/t multiple hospitalizations after starting. Underwent punch biopsy 04/22 and was started on IV Vanc/Cefp for wound/soft tissue infection, but then discontinued with plan to monitor off of antibiotics. Discussed with Rheumatology 04/24 - in absence of other signs or symptoms of vasculitis or connective tissue disorder (which may coexist with PG), final biopsy result c/w venous stasis and not c/w PG. WBC jumped from 13 -->26 on 04/30 & abx restarted though patient afebrile & w/o new s/s c/f infection. Wound 04/28 growing ecoli, klebsiella, proteus, corynebacterium and morganella. Blood cx NGTD. Urine cx growing few GNRs rods though no urinary symptoms. On 05/01, pt reported RLE more edematous, red and painful. +ROM & neurovascular intact w/o tingling or numbness. Vancomycin initially stopped due to susceptibilities but then wound grew enterococcus & WBC melecio of abx, restarted 05/05. Risk factors for poor/impaired healing include poorly controlled DM and tobacco use. Dx: - Punch biopsy pathology - c/w venous stasis ulceration, no PG. - f/u Tissue culture 04/28, prelim: + Ecoli, klebsiella, proteus, corynebacterium, morganella, enterococcus - f/u anerobic cx wound 04/28, prelim +GNRs - f/u Blood cx - NGTD - Urine cx +few GNRs, enterococcus - f/u Fungal pre-mullen negative - Mycobacterial without AFB - negative - RF, anti-CCP, hepatitis serologies, lupus anticoagulant, MARISSA , ANCA, Tspot negative - C3 elevated at 180, C4 normal - hypercoagulation panel with preliminary protein S elevation, normal protein C activity Tx: - Appreciate Derm recs, signed off - Appreciate Inpatient Wound consult and Burn recs - S/p wound debridement in OR 04/28 with vac placement - s/p OR 05/03 w/xenograft - Per Gong, next vac replacement w/final grafting ~05/09 or 05/10 - Cont IV cefepime (05/01- ) - s/p IV vanc (04/30-05/03) & CTX (04/30- 05/01) ----restarted Vanc (05/05- ) - Appreciate Chronic Pain recs Pain management: --- Tylenol 975 mg TID --- Dilaudid PO PRN --- Morphine IV PRN --- s/p ketorlac --- Transitioned from gabapentin to Lyrica 50 mg TID - Appreciate ACT re: consideration of methadone & pain reg guidance - Acute Pain Service consulted for popliteal nerve block; Not recommended given lack of prior efficacy, unlikely to provide lasting benefit Assessment & Plan (05/04/2024 1:43 PM EST): # 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 Review of [facility] records reveals that patient sustained an injury to R calf (reportedly scraped by metal) and area was subsequently erythematous and tender. In the Spring, the wound was initially thought to be an infected diabetic ulcer (10/10/23). She was subsequently admitted to [facility] multiple times (11/01-11/04, 11/14-11/15, 12/29-01/04), for ?recurrent infection and has received many rounds of antibiotics without improvement. During 12/29-01/04 admission, patient was followed by Vascular Surgery and ID, and had biopsy performed of the wound with concern for PG vs. malignancy. Dermatopathology report from 01/01/24 biopsy at [facility] states findings are consistent with PG, no tumor or vasculitis identified. She was referred to Dermatology for continued management. Since this diagnosis, she has had several additional presentations with ongoing pain as the chief complaint, with intermittent antibiosis (02/12 - left AMA, 02/27, 03/21- 03/29, 03/30, 04/09-04/12, 04/19-04/21). It appears patient was seen by Dermatology in mid-March and was started on clobetasol topical and minocycline for PG. She returned to the hospital shortly after Dermatology appointment due to uncontrolled pain after dressing was changed. Had a popliteal nerve block with catheter for pain at [facility] 04/19, which patient reports was ineffective. She has not had evidence of osteo on CT scan reports (most recently 04/09), has had many since initial presentation in September. This admission, she was seen by Dermatology who on initial assessment felt that wound appeared more consistent with diabetic ulcer vs atypical infection vs lymphoma. Punch biopsy was performed 04/22. She received 1x doses of vancomycin and cefepime in the ED for wound/soft tissue infection, however these were discontinued with plan to monitor off of antibiotics. Pain remains an issue and is the driving factor that lead to her presentation in our ED the same day as her discharge from [facility]. Risk factors for poor/impaired healing include poorly controlled DM and tobacco use. Notably, patient reports that she felt wound was worsening with clobetasol, however unclear how long this treatment was attempted given multiple hospital presentations since her first Dermatology appointment. Discussed with Rheumatology 04/24 - in absence of other signs or symptoms of vasculitis or connective tissue disorder (which may coexist with PG), final biopsy result c/w venous stasis and not c/w PG. WBC rise to 26 on 04/30 from 13, afebrile (though on standing tylenol) and no other symptoms c/f other source of infection. Wound cx from 04/28 growing ecoli, klebsiella, proteus, corynebacterium and morganella, blood cx NGTD. Urine cx growing few GNRs rods though no urinary symptoms less likely true UTI, regardless current abx should cover it. Will continue IV Vanc and IV cefepime for potential RLE infection until repeat procedure on 05/03, though leukocytosis could also be in inflammatory response to the wound debridement reassuringly down trending on 05/01 26.55>16.36. On 05/01,pt reported RLE is more edematous, redness and painful. On exam, neurovascular intact with no tingling or numbness.Tolerated ROM.RLE redness improved after lifting leg which points against infection and more c/w fluid overload. Will continue to monitor. Dx: - Punch biopsy pathology - consistent with venous stasis ulceration not concern for PG. - Tissue culture from 04/28 - growing Mod Ecoli, mod klebsiella, mod proteus, mod corynebacterium, mod morganella - Blood cx - NGTD - Urine cx - growing few GNRs rods - Fungal negative thus far - Mycobacterial without AFB - negative - RF negative, anti-CCP negative, C3 elevated at 180, C4 normal, hepatitis serologies negative, hypercoagulation panel with preliminary protein S elevation, normal protein C activity, negative for lupus anticoagulant. MARISSA neg, ANCA neg.T spot neg. Tx: - Appreciate Derm recs, signed off - Appreciate Inpatient Wound consult and burn recs - S/p wound debridement in OR 04/28 with vac placement 7 05/03 w/xenograft - Per Gong, next vac replacement w/final grafting ~05/09 or 05/10 - Cont IV cefepime (05/01- ) - s/p IV vanc (04/30-05/03) & CTX (04/30- 05/01) - Appreciate Chronic Pain recs Pain management: --- Tylenol 975 mg TID (on hold given leukocytosis) --- Dilaudid PO 4-6mg Q6H PRN --- Morphine 8mg IV Q4H PRN --- s/p ketorlac --- Transitioned from gabapentin to Lyrica 50 mg TID - Appreciate ACT consult re: consideration of methadone - Acute Pain Service consulted for popliteal nerve block; Not recommended given lack of prior efficacy, unlikely to provide lasting benefit Assessment & Plan (05/03/2024 4:54 PM EST): # 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 Review of [facility] records reveals that patient sustained an injury to R calf (reportedly scraped by metal) and area was subsequently erythematous and tender. In the Spring, the wound was initially thought to be an infected diabetic ulcer (10/10/23). She was subsequently admitted to [facility] multiple times (11/01-11/04, 11/14-11/15, 12/29-01/04), for ?recurrent infection and has received many rounds of antibiotics without improvement. During 12/29-01/04 admission, patient was followed by Vascular Surgery and ID, and had biopsy performed of the wound with concern for PG vs. malignancy. Dermatopathology report from 01/01/24 biopsy at [facility] states findings are consistent with PG, no tumor or vasculitis identified. She was referred to Dermatology for continued management. Since this diagnosis, she has had several additional presentations with ongoing pain as the chief complaint, with intermittent antibiosis (02/12 - left AMA, 02/27, 03/21- 03/29, 03/30, 04/09-04/12, 04/19-04/21). It appears patient was seen by Dermatology in mid-March and was started on clobetasol topical and minocycline for PG. She returned to the hospital shortly after Dermatology appointment due to uncontrolled pain after dressing was changed. Had a popliteal nerve block with catheter for pain at [facility] 04/19, which patient reports was ineffective. She has not had evidence of osteo on CT scan reports (most recently 04/09), has had many since initial presentation in September. This admission, she was seen by Dermatology who on initial assessment felt that wound appeared more consistent with diabetic ulcer vs atypical infection vs lymphoma. Punch biopsy was performed 04/22. She received 1x doses of vancomycin and cefepime in the ED for wound/soft tissue infection, however these were discontinued with plan to monitor off of antibiotics. Pain remains an issue and is the driving factor that lead to her presentation in our ED the same day as her discharge from [facility]. Risk factors for poor/impaired healing include poorly controlled DM and tobacco use. Notably, patient reports that she felt wound was worsening with clobetasol, however unclear how long this treatment was attempted given multiple hospital presentations since her first Dermatology appointment. Discussed with Rheumatology 04/24 - in absence of other signs or symptoms of vasculitis or connective tissue disorder (which may coexist with PG), final biopsy result c/w venous stasis and not c/w PG. WBC rise to 26 on 04/30 from 13, afebrile (though on standing tylenol) and no other symptoms c/f other source of infection. Wound cx from 04/28 growing ecoli, klebsiella, proteus, corynebacterium and morganella, blood cx NGTD. Urine cx growing few GNRs rods though no urinary symptoms less likely true UTI, regardless current abx should cover it. Will continue IV Vanc and IV cefepime for potential RLE infection until repeat procedure on 05/03, though leukocytosis could also be in inflammatory response to the wound debridement reassuringly down trending on 05/01 26.55>16.36. On 05/01,pt reported RLE is more edematous, redness and painful. On exam, neurovascular intact with no tingling or numbness.Tolerated ROM.RLE redness improved after lifting leg which points against infection and more c/w fluid overload. Will continue to monitor. Dx: - Punch biopsy pathology - consistent with venous stasis ulceration not concern for PG. - Tissue culture from 04/28 - growing Mod Ecoli, mod klebsiella, mod proteus, mod corynebacterium, mod morganella - Blood cx - NGTD - Urine cx - growing few GNRs rods - Fungal negative thus far - Mycobacterial without AFB - negative - RF negative, anti-CCP negative, C3 elevated at 180, C4 normal, hepatitis serologies negative, hypercoagulation panel with preliminary protein S elevation, normal protein C activity, negative for lupus anticoagulant. MARISSA neg, ANCA neg.T spot neg. Tx: - Appreciate Derm recs, signed off - Appreciate Inpatient Wound consult and burn recs - S/p wound debridement in OR 04/28 with vac placement 7 05/03 w/xenograft - Per Gong, next vac replacement w/final grafting ~05/09 or 05/10 - Cont IV cefepime (05/01- ) - s/p IV vanc (04/30-05/03) & CTX (04/30- 05/01) - Appreciate Chronic Pain recs Pain management: --- Tylenol 975 mg TID (on hold given leukocytosis) --- Dilaudid PO 4-6mg Q6H PRN --- Morphine 8mg IV Q4H PRN --- s/p ketorlac --- Transitioned from gabapentin to Lyrica 50 mg TID - Appreciate ACT consult re: consideration of methadone - Acute Pain Service consulted for popliteal nerve block; Not recommended given lack of prior efficacy, unlikely to provide lasting benefit Assessment & Plan (05/02/2024 2:18 PM EST): # 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 Review of [facility] records reveals that patient sustained an injury to R calf (reportedly scraped by metal) and area was subsequently erythematous and tender. In the Spring, the wound was initially thought to be an infected diabetic ulcer (10/10/23). She was subsequently admitted to [facility] multiple times (11/01-11/04, 11/14-11/15, 12/29- 01/04), for ?recurrent infection and has received many rounds of antibiotics without improvement. During 12/29-01/04 admission, patient was followed by Vascular Surgery and ID, and had biopsy performed of the wound with concern for PG vs. malignancy. Dermatopathology report from 01/01/24 biopsy at [facility] states findings are consistent with PG, no tumor or vasculitis identified. She was referred to Dermatology for continued management. Since this diagnosis, she has had several additional presentations with ongoing pain as the chief complaint, with intermittent antibiosis (02/12 - left AMA, 02/27, 03/21-03/29, 03/30, 04/09-04/12, 04/19-04/21). It appears patient was seen by Dermatology in mid-March and was started on clobetasol topical and minocycline for PG. She returned to the hospital shortly after Dermatology appointment due to uncontrolled pain after dressing was changed. Had a popliteal nerve block with catheter for pain at [facility] 04/19, which patient reports was ineffective. She has not had evidence of osteo on CT scan reports (most recently 04/09), has had many since initial presentation in September. This admission, she was seen by Dermatology who on initial assessment felt that wound appeared more consistent with diabetic ulcer vs atypical infection vs lymphoma. Punch biopsy was performed 04/22. She received 1x doses of vancomycin and cefepime in the ED for wound/soft tissue infection, however these were discontinued with plan to monitor off of antibiotics. Pain remains an issue and is the driving factor that lead to her presentation in our ED the same day as her discharge from [facility]. Risk factors for poor/impaired healing include poorly controlled DM and tobacco use. Notably, patient reports that she felt wound was worsening with clobetasol, however unclear how long this treatment was attempted given multiple hospital presentations since her first Dermatology appointment. Discussed with Rheumatology 04/24 - in absence of other signs or symptoms of vasculitis or connective tissue disorder (which may coexist with PG), final biopsy result c/w venous stasis and not c/w PG. WBC rise to 26 on 04/30 from 13, afebrile (though on standing tylenol) and no other symptoms c/f other source of infection. Wound cx from 04/28 growing ecoli, klebsiella, proteus, corynebacterium and morganella, blood cx NGTD. Urine cx growing few GNRs rods though no urinary symptoms less likely true UTI, regardless current abx should cover it. Will continue IV Vanc and IV cefepime for potential RLE infection until repeat procedure on 05/03, though leukocytosis could also be in inflammatory response to the wound debridement reassuringly down trending on 05/01 26.55>16.36. On 05/01,pt reported RLE is more edematous, redness and painful. On exam, neurovascular intact with no tingling or numbness.Tolerated ROM.RLE redness improved after lifting leg which points against infection and more c/w fluid overload. Will continue to monitor. Dx: - Punch biopsy pathology - consistent with venous stasis ulceration not concern for PG. - Tissue culture from 04/28 - growing Mod Ecoli, mod klebsiella, mod proteus, mod corynebacterium, mod morganella - Blood cx - NGTD - Urine cx - growing few GNRs rods - Fungal negative thus far - Mycobacterial without AFB - negative - RF negative, anti-CCP negative, C3 elevated at 180, C4 normal, hepatitis serologies negative, hypercoagulation panel with preliminary protein S elevation, normal protein C activity, negative for lupus anticoagulant. MARISSA neg, ANCA neg.T spot neg. Tx: - Appreciate Derm recs, signed off - Appreciate Inpatient Wound consult and burn recs - S/p wound debridement in OR on 04/28 with vac placement - Per Gong, next procedure will be vac replacement +/- potential grafting later this week - Continue IV vanc (04/30-) and IV cefepime (05/01- )-- can deescalate pending re-eval of wound in OR -- discontinued CTX (04/30- 05/01) - Appreciate Chronic Pain recs Pain management: --- Tylenol 975 mg TID (on hold given leukocytosis) --- Dilaudid PO 2-4mg Q6H PRN mod-severe pain --- Morphine 8mg IV Q4H PRN breakthrough pain --- Continue ketorlac 15g Q6H PRN moderate pain, multi-modal analgesia --- Transition to Lyrica 50 mg TID from gabapentin 300 mg TID, can titrate as tolerated - Appreciate ACT consult re: consideration of methadone - Acute Pain Service consulted for popliteal nerve block; Not recommended given lack of prior efficacy, unlikely to provide lasting benefit Dispo: - Wound Clinic follow up will be needed (follows with clinic in [facility]) - Not immune to hepatitis B, consider vaccination at discharge if agreeable Assessment & Plan (05/01/2024 2:25 PM EST): # 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 Review of [facility] records reveals that patient sustained an injury to R calf (reportedly scraped by metal) and area was subsequently erythematous and tender. In the Spring, the wound was initially thought to be an infected diabetic ulcer (10/10/23). She was subsequently admitted to [facility] multiple times (11/01-11/04, 11/14-11/15, 12/29- 01/04), for ?recurrent infection and has received many rounds of antibiotics without improvement. During 12/29-01/04 admission, patient was followed by Vascular Surgery and ID, and had biopsy performed of the wound with concern for PG vs. malignancy. Dermatopathology report from 01/01/24 biopsy at [facility] states findings are consistent with PG, no tumor or vasculitis identified. She was referred to Dermatology for continued management. Since this diagnosis, she has had several additional presentations with ongoing pain as the chief complaint, with intermittent antibiosis (02/12 - left AMA, 02/27, 03/21-03/29, 03/30, 04/09-04/12, 04/19-04/21). It appears patient was seen by Dermatology in mid-March and was started on clobetasol topical and minocycline for PG. She returned to the hospital shortly after Dermatology appointment due to uncontrolled pain after dressing was changed. Had a popliteal nerve block with catheter for pain at [facility] 04/19, which patient reports was ineffective. She has not had evidence of osteo on CT scan reports (most recently 04/09), has had many since initial presentation in September. This admission, she was seen by Dermatology who on initial assessment felt that wound appeared more consistent with diabetic ulcer vs atypical infection vs lymphoma. Punch biopsy was performed 04/22. She received 1x doses of vancomycin and cefepime in the ED for wound/soft tissue infection, however these were discontinued with plan to monitor off of antibiotics. Pain remains an issue and is the driving factor that lead to her presentation in our ED the same day as her discharge from [facility]. Risk factors for poor/impaired healing include poorly controlled DM and tobacco use. Notably, patient reports that she felt wound was worsening with clobetasol, however unclear how long this treatment was attempted given multiple hospital presentations since her first Dermatology appointment. Discussed with Rheumatology 04/24 - in absence of other signs or symptoms of vasculitis or connective tissue disorder (which may coexist with PG), final biopsy result c/w venous stasis and not c/w PG. WBC rise to 26 on 04/30 from 13, afebrile (though on standing tylenol) and no other symptoms c/f other source of infection. Wound cx from 04/28 growing ecoli, klebsiella, proteus, corynebacterium and morganella, blood cx NGTD. Urine cx growing few GNRs rods though no urinary symptoms less likely true UTI, regardless current abx should cover it. Will continue IV Vanc and IV cefepime for potential RLE infection until repeat procedure on 05/03, though leukocytosis could also be in inflammatory response to the wound debridement reassuringly down trending on 05/01 26.55>16.36. On 05/01,pt reported RLE is more edematous, redness and painful. On exam, neurovascular intact with no tingling or numbness.Tolerated ROM.RLE redness improved after lifting leg which points against infection and more c/w fluid overload. Will continue to monitor. Dx: - Punch biopsy pathology - consistent with venous stasis ulceration not concern for PG. - Tissue culture from 04/28 - growing Mod Ecoli, mod klebsiella, mod proteus, mod corynebacterium, mod morganella - Blood cx - NGTD - Urine cx - growing few GNRs rods - Fungal negative thus far - Mycobacterial without AFB - negative - RF negative, anti-CCP negative, C3 elevated at 180, C4 normal, hepatitis serologies negative, hypercoagulation panel with preliminary protein S elevation, normal protein C activity, negative for lupus anticoagulant. MARISSA neg, ANCA neg.T spot neg. Tx: - Appreciate Derm recs, signed off - Appreciate Inpatient Wound consult and burn recs - S/p wound debridement in OR on 04/28 with vac placement - Per Gong, next procedure will be vac replacement +/- potential grafting on Thursday 05/03 - Continue IV vanc (04/30-) and IV cefepime (05/01- ) -- discontinued CTX (04/30- 05/01) given susceptibility - Appreciate Chronic Pain recs Pain management: --- Tylenol 975 mg TID (on hold given leukocytosis) --- Dilaudid PO 2-4mg Q6H PRN mod-severe pain --- Morphine 8mg IV Q4H PRN breakthrough pain --- Continue ketorlac 15g Q6H PRN moderate pain, multi-modal analgesia --- Transition to Lyrica 50 mg TID from gabapentin 300 mg TID, can titrate as tolerated - Appreciate ACT consult re: consideration of methadone - Acute Pain Service consulted for popliteal nerve block; Not recommended given lack of prior efficacy, unlikely to provide lasting benefit Dispo: - Wound Clinic follow up will be needed (follows with clinic in [facility]) - Not immune to hepatitis B, consider vaccination at discharge if agreeable Assessment & Plan (04/30/2024 2:19 PM EST): # 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 Review of [facility] records reveals that patient sustained an injury to R calf (reportedly scraped by metal) and area was subsequently erythematous and tender. In the Spring, the wound was initially thought to be an infected diabetic ulcer (10/10/23). She was subsequently admitted to [facility] multiple times (11/01-11/04, 11/14-11/15, 12/29- 01/04), for ?recurrent infection and has received many rounds of antibiotics without improvement. During 12/29-01/04 admission, patient was followed by Vascular Surgery and ID, and had biopsy performed of the wound with concern for PG vs. malignancy. Dermatopathology report from 01/01/24 biopsy at [facility] states findings are consistent with PG, no tumor or vasculitis identified. She was referred to Dermatology for continued management. Since this diagnosis, she has had several additional presentations with ongoing pain as the chief complaint, with intermittent antibiosis (02/12 - left AMA, 02/27, 03/21-03/29, 03/30, 04/09-04/12, 04/19-04/21). It appears patient was seen by Dermatology in mid-March and was started on clobetasol topical and minocycline for PG. She returned to the hospital shortly after Dermatology appointment due to uncontrolled pain after dressing was changed. Had a popliteal nerve block with catheter for pain at [facility] 04/19, which patient reports was ineffective. She has not had evidence of osteo on CT scan reports (most recently 04/09), has had many since initial presentation in September. This admission, she was seen by Dermatology who on initial assessment felt that wound appeared more consistent with diabetic ulcer vs atypical infection vs lymphoma. Punch biopsy was performed 04/22. She received 1x doses of vancomycin and cefepime in the ED for wound/soft tissue infection, however these were discontinued with plan to monitor off of antibiotics. Pain remains an issue and is the driving factor that lead to her presentation in our ED the same day as her discharge from [facility]. Risk factors for poor/impaired healing include poorly controlled DM and tobacco use. Notably, patient reports that she felt wound was worsening with clobetasol, however unclear how long this treatment was attempted given multiple hospital presentations since her first Dermatology appointment. Discussed with Rheumatology 04/24 - in absence of other signs or symptoms of vasculitis or connective tissue disorder (which may coexist with PG), final biopsy reasult c/w venous stasis and not c/w PG. WBC increased from 13 ->26 on 04/30, afebrile (though on standing tylenol) and no other symptoms concerning for infection including SOB, dysuria. Wound cx from 04/28 growing ecoli, klebsiella, proteus, corynebacterium and morganella, will send blood cx and urine cx to rule out other infection. Will empirically start on IV CTX and IV vanc for potential RLE infection though leukocytosis could also be in inflammatory response to the wound debridement Dx: - Punch biopsy pathology - consistent with venous stasis ulceration not concern for PG. - Follow up cultures --- Tissue culture from 04/28 - growing Mod Ecoli, mod klebsiella, mod proteus, mod corynebacterium, mod morganella, susceptibilities pending --- Fungal negative thus far --- Mycobacterial without AFB - negative --- RF negative, anti-CCP negative, C3 elevated at 180, C4 normal, hepatitis serologies negative, hypercoagulation panel with preliminary protein S elevation, normal protein C activity, negative for lupus anticoagulant. MARISSA neg, ANCA neg.T spot neg. Tx: - Appreciate Derm recs, signed off - Appreciate Inpatient Wound consult and burn recs - S/p wound debridement in OR on 04/28 with vac placement - Per Gong, next procedure will be vac replacement +/- potential grafting on Thursday 05/03 - Started on IV vanc and CTX (04/30-) - Appreciate Chronic Pain consult Pain management: --- Tylenol 975 mg TID (on hold given leukocytosis) --- Dilaudid PO 2-4mg Q6H PRN mod-severe pain --- Morphine 8mg IV Q4H PRN breakthrough pain --- Continue ketorlac 15g Q6H PRN moderate pain, multi-modal analgesia - Appreciate ACT consult re: consideration of methadone - On gabapentin 300 mg TID, plan to transition to Lyrica as below: --- Gabapentin 300mg in the morning and afternoon, pregabalin 50mg at night for 3 days (04/25 - 04/27) --- Then Pregabalin 50mg BID (qAM, qPM), Gabapentin 300mg in the afternoon for 3 days (04/28 - 04/30). 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 Review of [facility] records reveals that patient sustained an injury to R calf (reportedly scraped by metal) and area was subsequently erythematous and tender. In the Spring, the wound was initially thought to be an infected diabetic ulcer (10/10/23). She was subsequently admitted to [facility] multiple times (11/01-11/04, 11/14-11/15, 12/29- 01/04), for ?recurrent infection and has received many rounds of antibiotics without improvement. During 12/29-01/04 admission, patient was followed by Vascular Surgery and ID, and had biopsy performed of the wound with concern for PG vs. malignancy. Dermatopathology report from 01/01/24 biopsy at [facility] states findings are consistent with PG, no tumor or vasculitis identified. She was referred to Dermatology for continued management. Since this diagnosis, she has had several additional presentations with ongoing pain as the chief complaint, with intermittent antibiosis (02/12 - left AMA, 02/27, 03/21-03/29, 03/30, 04/09-04/12, 04/19-04/21). It appears patient was seen by Dermatology in mid-March and was started on clobetasol topical and minocycline for PG. She returned to the hospital shortly after Dermatology appointment due to uncontrolled pain after dressing was changed. Had a popliteal nerve block with catheter for pain at [facility] 04/19, which patient reports was ineffective. She has not had evidence of osteo on CT scan reports (most recently 04/09), has had many since initial presentation in September. This admission, she was seen by Dermatology who on initial assessment felt that wound appeared more consistent with diabetic ulcer vs atypical infection vs lymphoma. Punch biopsy was performed 04/22. She received 1x doses of vancomycin and cefepime in the ED for wound/soft tissue infection, however these were discontinued with plan to monitor off of antibiotics. Pain remains an issue and is the driving factor that lead to her presentation in our ED the same day as her discharge from [facility]. Risk factors for poor/impaired healing include poorly controlled DM and tobacco use. Notably, patient reports that she felt wound was worsening with clobetasol, however unclear how long this treatment was attempted given multiple hospital presentations since her first Dermatology appointment. Discussed with Rheumatology 04/24 - in absence of other signs or symptoms of vasculitis or connective tissue disorder (which may coexist with PG), final biopsy reasult c/w venous stasis and not c/w PG. Dx: - Punch biopsy pathology - consistent with venous stasis ulceration not concern for PG. - Follow up cultures --- Tissue culture/smear with few corynebacterium species, one colony of E. Faecalis - suspect colonization in setting of multiple antibiotic courses --- Fungal negative thus far --- Mycobacterial without AFB, pending --- RF negative, anti-CCP negative, C3 elevated at 180, C4 normal, hepatitis serologies negative, hypercoagulation panel with preliminary protein S elevation, normal protein C activity, negative for lupus anticoagulant. MARISSA neg, ANCA neg.T spot neg. Tx: - Appreciate Derm recs, signed off - Appreciate Inpatient Wound consult and burn recs - S/p wound debridement in OR on 04/28 with vac placement - Per Gong, next procedure will be vac replacement +/- potential grafting on Thursday 05/03 - Appreciate Chronic Pain consult Pain management: --- Tylenol 975 mg TID --- Dilaudid PO 2-4mg Q6H PRN mod-severe pain --- Morphine 8mg IV Q4H PRN breakthrough pain --- Continue ketorlac 15g Q6H PRN moderate pain, multi-modal analgesia - Appreciate ACT consult re: consideration of methadone - On gabapentin 300 mg TID, plan to transition to Lyrica as below: --- Gabapentin 300mg in the morning and afternoon, pregabalin 50mg at night for 3 days (04/25 - 04/27) --- Then Pregabalin 50mg BID (qAM, qPM), Gabapentin 300mg in the afternoon for 3 days (04/28 - 04/30). 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 Review of [facility] records reveals that patient sustained an injury to R calf (reportedly scraped by metal) and area was subsequently erythematous and tender. In the Spring, the wound was initially thought to be an infected diabetic ulcer (10/10/23). She was subsequently admitted to [facility] multiple times (11/01-11/04, 11/14-11/15, 12/29- 01/04), for ?recurrent infection and has received many rounds of antibiotics without improvement. During 12/29-01/04 admission, patient was followed by Vascular Surgery and ID, and had biopsy performed of the wound with concern for PG vs. malignancy. Dermatopathology report from 01/01/24 biopsy at [facility] states findings are consistent with PG, no tumor or vasculitis identified. She was referred to Dermatology for continued management. Since this diagnosis, she has had several additional presentations with ongoing pain as the chief complaint, with intermittent antibiosis (02/12 - left AMA, 02/27, 03/21-03/29, 03/30, 04/09-04/12, 04/19-04/21). It appears patient was seen by Dermatology in mid-March and was started on clobetasol topical and minocycline for PG. She returned to the hospital shortly after Dermatology appointment due to uncontrolled pain after dressing was changed. Had a popliteal nerve block with catheter for pain at [facility] 04/19, which patient reports was ineffective. She has not had evidence of osteo on CT scan reports (most recently 04/09), has had many since initial presentation in September. This admission, she was seen by Dermatology who on initial assessment felt that wound appeared more consistent with diabetic ulcer vs atypical infection vs lymphoma. Punch biopsy was performed 04/22. She received 1x doses of vancomycin and cefepime in the ED for wound/soft tissue infection, however these were discontinued with plan to monitor off of antibiotics. Pain remains an issue and is the driving factor that lead to her presentation in our ED the same day as her discharge from [facility]. Risk factors for poor/impaired healing include poorly controlled DM and tobacco use. Notably, patient reports that she felt wound was worsening with clobetasol, however unclear how long this treatment was attempted given multiple hospital presentations since her first Dermatology appointment. Discussed with Rheumatology 04/24 - in absence of other signs or symptoms of vasculitis or connective tissue disorder (which may coexist with PG), final biopsy reasult c/w venous stasis and not c/w PG. Dx: - Punch biopsy pathology - consistent with venous stasis ulceration not concern for PG. - Follow up cultures --- Tissue culture/smear with few corynebacterium species, one colony of E. Faecalis - suspect colonization in setting of multiple antibiotic courses --- Fungal negative thus far --- Mycobacterial without AFB, pending --- RF negative, anti-CCP negative, C3 elevated at 180, C4 normal, hepatitis serologies negative, hypercoagulation panel with preliminary protein S elevation, normal protein C activity, negative for lupus anticoagulant. MARISSA neg, ANCA neg.T spot neg. Tx: - Appreciate Derm recs, signed off - Appreciate Inpatient Wound consult and burn recs - S/p wound debridement in OR on 04/28 with vac placement - Will need wound vac change in 4-5 days likely in OR or bedside by wound team per Gong given pain. - Appreciate Chronic Pain consult Pain management: --- Tylenol 975 mg TID --- Dilaudid PO 2-4mg Q6H PRN mod-severe pain --- Morphine 8mg IV Q4H PRN breakthrough pain --- Continue ketorlac 15g Q6H PRN moderate pain, multi-modal analgesia - Appreciate ACT consult re: consideration of methadone - On gabapentin 300 mg TID, plan to transition to Lyrica as below: --- Gabapentin 300mg in the morning and afternoon, pregabalin 50mg at night for 3 days (04/25 - 04/27) --- Then Pregabalin 50mg BID (qAM, qPM), Gabapentin 300mg in the afternoon for 3 days (04/28 - 04/30). 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 Review of [facility] records reveals that patient sustained an injury to R calf (reportedly scraped by metal) and area was subsequently erythematous and tender. In the Spring, the wound was initially thought to be an infected diabetic ulcer (10/10/23). She was subsequently admitted to [facility] multiple times (11/01-11/04, 11/14-11/15, 12/29- 01/04), for ?recurrent infection and has received many rounds of antibiotics without improvement. During 12/29-01/04 admission, patient was followed by Vascular Surgery and ID, and had biopsy performed of the wound with concern for PG vs. malignancy. Dermatopathology report from 01/01/24 biopsy at [facility] states findings are consistent with PG, no tumor or vasculitis identified. She was referred to Dermatology for continued management. Since this diagnosis, she has had several additional presentations with ongoing pain as the chief complaint, with intermittent antibiosis (02/12 - left AMA, 02/27, 03/21-03/29, 03/30, 04/09-04/12, 04/19-04/21). It appears patient was seen by Dermatology in mid-March and was started on clobetasol topical and minocycline for PG. She returned to the hospital shortly after Dermatology appointment due to uncontrolled pain after dressing was changed. Had a popliteal nerve block with catheter for pain at [facility] 04/19, which patient reports was ineffective. She has not had evidence of osteo on CT scan reports (most recently 04/09), has had many since initial presentation in September. This admission, she was seen by Dermatology who on initial assessment felt that wound appeared more consistent with diabetic ulcer vs atypical infection vs lymphoma. Punch biopsy was performed 04/22. She received 1x doses of vancomycin and cefepime in the ED for wound/soft tissue infection, however these were discontinued with plan to monitor off of antibiotics. Pain remains an issue and is the driving factor that lead to her presentation in our ED the same day as her discharge from [facility]. Risk factors for poor/impaired healing include poorly controlled DM and tobacco use. Notably, patient reports that she felt wound was worsening with clobetasol, however unclear how long this treatment was attempted given multiple hospital presentations since her first Dermatology appointment. Discussed with Rheumatology 04/24 - in absence of other signs or symptoms of vasculitis or connective tissue disorder (which may coexist with PG), will await biopsy results. Dx: - Follow up punch biopsy pathology - preliminarily appears to be more consistent with venous stasis ulceration per Pathology as of 04/25, however awaiting final report - Follow up cultures --- Tissue culture/smear with few corynebacterium species, one colony of E. Faecalis - suspect colonization in setting of multiple antibiotic courses --- Fungal negative thus far --- Mycobacterial without AFB, pending --- RF negative, anti-CCP negative, C3 elevated at 180, C4 normal, hepatitis serologies negative, hypercoagulation panel with preliminary protein S elevation, normal protein C activity, negative for lupus anticoagulant --- F/u MARISSA, ANCA, T spot, hypercoagulation panel (pending) - Dermatopathology report from [facility] (12/31) states findings are consistent with PG, no tumor or vasculitis identified (scanned into Media tab) Tx: - Appreciate Derm recs, signed off - Appreciate Inpatient Wound consult --- Wound care: Apply Adaptic 6 x 6 to cover posterior, medial and lateral aspects (Six 6 x 5 Adaptic Touch silicone mesh contact layers), wrap leg with two layers of Kerlix from ankle to below knee, saturate entire wrapping with Dakin's 0.125% every 6 hours until discontinued (do not remove Kerlix unless instructed to do so by Wound team) --- On waitlist for OR debridement likely 04/28, given biopsy negative for PG. - Appreciate Chronic Pain consult Pain management: --- Tylenol 975 mg TID --- Dilaudid PO 2-4mg Q6H PRN mod-severe pain --- Morphine 8mg IV Q4H PRN breakthrough pain --- Continue ketorlac 15g Q6H PRN moderate pain, multi-modal analgesia - Appreciate ACT consult re: consideration of methadone - Appreciate Chronic Pain consult --- On gabapentin 300 mg TID, plan to transition to Lyrica as below: ----- Gabapentin 300mg in the morning and afternoon, pregabalin 50mg at night for 3 days (04/25 - 04/27) ----- Then Pregabalin 50mg BID (qAM, qPM), Gabapentin 300mg in the afternoon for 3 days (04/28 - 04/30. 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 Review of [facility] records reveals that patient sustained an injury to R calf (reportedly scraped by metal) and area was subsequently erythematous and tender. In the Spring, the wound was initially thought to be an infected diabetic ulcer (10/10/23). She was subsequently admitted to [facility] multiple times (11/01-11/04, 11/14-11/15, 12/29- 01/04), for ?recurrent infection and has received many rounds of antibiotics without improvement. During 12/29-01/04 admission, patient was followed by Vascular Surgery and ID, and had biopsy performed of the wound with concern for PG vs. malignancy. Dermatopathology report from 01/01/24 biopsy at [facility] states findings are consistent with PG, no tumor or vasculitis identified. She was referred to Dermatology for continued management. Since this diagnosis, she has had several additional presentations with ongoing pain as the chief complaint, with intermittent antibiosis (02/12 - left AMA, 02/27, 03/21-03/29, 03/30, 04/09-04/12, 04/19-04/21). It appears patient was seen by Dermatology in mid-March and was started on clobetasol topical and minocycline for PG. She returned to the hospital shortly after Dermatology appointment due to uncontrolled pain after dressing was changed. Had a popliteal nerve block with catheter for pain at [facility] 04/19, which patient reports was ineffective. She has not had evidence of osteo on CT scan reports (most recently 04/09), has had many since initial presentation in September. This admission, she was seen by Dermatology who on initial assessment felt that wound appeared more consistent with diabetic ulcer vs atypical infection vs lymphoma. Punch biopsy was performed 04/22. She received 1x doses of vancomycin and cefepime in the ED for wound/soft tissue infection, however these were discontinued with plan to monitor off of antibiotics. Pain remains an issue and is the driving factor that lead to her presentation in our ED the same day as her discharge from [facility]. Risk factors for poor/impaired healing include poorly controlled DM and tobacco use. Notably, patient reports that she felt wound was worsening with clobetasol, however unclear how long this treatment was attempted given multiple hospital presentations since her first Dermatology appointment. Discussed with Rheumatology 04/24 - in absence of other signs or symptoms of vasculitis or connective tissue disorder (which may coexist with PG), will await biopsy results. Dx: - Follow up punch biopsy pathology - preliminarily appears to be more consistent with venous stasis ulceration per Pathology as of 04/25, however awaiting final report - Follow up cultures --- Tissue culture/smear with few corynebacterium species, one colony of E. Faecalis - suspect colonization in setting of multiple antibiotic courses --- Fungal negative thus far --- Mycobacterial without AFB, pending --- RF negative, anti-CCP negative, C3 elevated at 180, C4 normal, hepatitis serologies negative, hypercoagulation panel with preliminary protein S elevation, normal protein C activity, negative for lupus anticoagulant --- F/u MARISSA, ANCA, T spot, hypercoagulation panel (pending) - Dermatopathology report from [facility] (12/31) states findings are consistent with PG, no tumor or vasculitis identified (scanned into Media tab) Tx: - Appreciate Derm recs, signed off - Appreciate Inpatient Wound consult --- Wound care: Apply Adaptic 6 x 6 to cover posterior, medial and lateral aspects (Six 6 x 5 Adaptic Touch silicone mesh contact layers), wrap leg with two layers of Kerlix from ankle to below knee, saturate entire wrapping with Dakin's 0.125% every 6 hours until discontinued (do not remove Kerlix unless instructed to do so by Wound team) --- Pending biopsy results, may require OR debridement - Appreciate Chronic Pain consult Pain management: --- Tylenol 975 mg TID --- Dilaudid PO 2-4mg Q6H PRN mod-severe pain --- Morphine 8mg IV Q4H PRN breakthrough pain --- Continue ketorlac 15g Q6H PRN moderate pain, multi-modal analgesia - Appreciate ACT consult re: consideration of methadone - Appreciate Chronic Pain consult --- On gabapentin 300 mg TID, plan to transition to Lyrica as below: ----- Gabapentin 300mg in the morning and afternoon, pregabalin 50mg at night for 3 days (04/25 - 04/27) ----- Then Pregabalin 50mg BID (qAM, qPM), Gabapentin 300mg in the afternoon for 3 days (04/28 - 04/30. 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 Review of [facility] records reveals that patient sustained an injury to R calf (reportedly scraped by metal) and area was subsequently erythematous and tender. In the Spring, the wound was initially thought to be an infected diabetic ulcer (10/10/23). She was subsequently admitted to [facility] multiple times (11/01-11/04, 11/14-11/15, 12/29- 01/04), for ?recurrent infection and has received many rounds of antibiotics without improvement. During 12/29-01/04 admission, patient was followed by Vascular Surgery and ID, and had biopsy performed of the wound with concern for PG vs. malignancy. Per review of chart, biopsy was consistent with pyoderma gangrenosum (have not yet been able to review results directly, only from mention in notes). She was referred to Dermatology for continued management. Since this diagnosis, she has had several additional presentations with ongoing pain as the chief complaint, with intermittent antibiosis (02/12 - left AMA, 02/27, 03/21-03/29, 03/30, 04/09-04/12, 04/19-04/21). It appears patient was seen by Dermatology in mid-March and was started on clobetasol topical and minocycline for PG. She returned to the hospital shortly after Dermatology appointment due to uncontrolled pain after dressing was changed. Appears to have had a popliteal nerve block for pain at [facility] 04/20, which patient reports was ineffective. Notably has not had evidence of osteo on CT scan reports (most recently 04/09), has had many since initial presentation in September. This admission, she was seen by Dermatology who on initial assessment felt that wound appeared more consistent with diabetic ulcer vs atypical infection vs lymphoma. Punch biopsy was performed 04/22. She received 1x doses of vancomycin and cefepime in the ED for wound/soft tissue infection, however these were discontinued with plan to monitor off of antibiotics. Pain remains an issue and is the driving factor that lead to her presentation in our ED the same day as her discharge from [facility]. Risk factors for poor/impaired healing include poorly controlled DM and tobacco use. Notably, patient reports that she felt wound was worsening with clobetasol, however unclear how long this treatment was attempted given multiple hospital presentations since her first Dermatology appointment. Discussed with Rheumatology 04/24 - in absence of other signs or symptoms of vasculitis or connective tissue disorder (which may coexist with PG), will await biopsy results. Dx: - Follow up punch biopsy pathology - preliminarily appears to be more consistent with venous stasis ulceration per Pathology, however awaiting final report - Follow up cultures --- Tissue culture/smear with few corynebacterium species, one colony of E. Faecalis - suspect colonization in setting of multiple antibiotic courses --- Fungal negative thus far --- Mycobacterial without AFB, pending - F/u RF, anti-CCP, MARISSA, C3/C4, ANCA, T spot, HepB/C serologies, hypercoagulation panel - IAC request placed to obtain prior path report from [facility] Tx: - Appreciate Derm recs, signed off --- Wound care: daily cleaning with wound cleanser or NS, followed by Vaseline, non-adherent dressing, wrap in Kerlix; Advise Inpatient Wound Service to follow however would recommend against debridement until pathology confirms diagnosis --- No additional therapies recommended at this time pending biopsy data - Appreciate Inpatient Wound consult - Appreciate Chronic Pain consult Pain management: --- Tylenol 975 mg TID --- Dilaudid PO 2-4mg Q6H PRN mod-severe pain --- Morphine 8mg IV Q4H PRN breakthrough pain --- Start ketorlac 15g Q6H PRN moderate pain, multi-modal analgesia (x48 hours) --- Would avoid additional escalation of opioids if possible until confirming outpatient prescriber, will reach out to PCP Thursday - Appreciate ACT consult re: consideration of methadone - Appreciate Chronic Pain consult --- On gabapentin 300 mg TID, plan to transition to Lyrica as below: ----- Gabapentin 300mg in the morning and afternoon, pregabalin 50mg at night for 3 days (04/25 - 04/27) ----- Then Pregabalin 50mg BID (qAM, qPM), Gabapentin 300mg in the afternoon for 3 days (04/28 - 04/30. ----- Then Pregabalin 50mg TID; can titrate as tolerated (05/01- onward) --- Acute Pain Service consulted for popliteal nerve block; Not recommended given short-term solution for more chronic pain issue - Once pain regimen established, will need to touch base with PCP to take on pain prescription. Review of [facility] shows scripts from hospital recently, prior suboxone prescriptions, no clear chronic opioid prescriber Assessment & Plan (04/24/2024 2:23 PM EST): # 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 Review of [facility] records reveals that patient sustained an injury to R calf (reportedly scraped by metal) and area was subsequently erythematous and tender. In the Spring, the wound was initially thought to be an infected diabetic ulcer (10/10/23). She was subsequently admitted to [facility] multiple times (11/01-11/04, 11/14-11/15, 12/29- 01/04), for ?recurrent infection and has received many rounds of antibiotics without improvement. She also has had ongoing wound care with debridement without improvement (follows with wound care clinic in [place], [place]). During 12/29-01/04 admission, patient was followed by Vascular Surgery and ID, and had biopsy performed of the wound with concern for PG vs. malignancy. She was discharged on IV Zosyn to be continued through 01/13. 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 She was referred to Dermatology for continued management. Since this diagnosis, she has had several additional presentations with ongoing pain as the chief complaint, with intermittent antibiosis (02/12 - left AMA, 02/27, 03/21- 03/29, 03/30, 04/09-04/12, 04/19-04/21). It appears patient was seen by Derm Dermatology between 03/29 and 03/30, at which time she was started on clobetasol topical and minocycline for PG. She bounced back after Dermatology follow up to the ED due to uncontrolled pain after dressing was changed on 03/30, as above. Appears to have had a popliteal nerve block for pain at [facility] 04/20, which patient reports was ineffective. Notably has not had evidence of osteo on CT scan reports (most recently 04/09), has had many since initial presentation in September. This admission, she was seen by Dermatology who on initial assessment felt that wound appeared more consistent with diabetic ulcer vs atypical infection vs lymphoma. Punch biopsy was performed 04/22. While the tissue surrounding her wound is erythematous it is not hot to the touch, no appreciated areas of fluctuance or active purulent drainage. She received 1x doses of vancomycin and cefepime in the ED for wound/soft tissue infection, however these were discontinued with plan to monitor off of antibiotics. Pain remains an issue and is the driving factor that lead to her presentation in our ED the same day as her discharge from [facility]. Risk factors for poor/impaired healing include poorly controlled DM and tobacco use. Reviewed wound images with Dermatology 04/23, who felt wound appears to be healing, albeit slowly. Notably, patient reports that she felt wound was worsening with clobetasol, however unclear how long this treatment was tried for given multiple hospital presentations since Dermatology appointment. Discussed with Rheumatology 04/24 - in absence of other signs or symptoms of vasculitis or connective tissue disorder (which may coexist with PG), will await biopsy results. Dx: - Follow up punch biopsy pathology - Follow up cultures --- Tissue culture/smear with few corynebacterium species, one colony of E. faecalis --- Fungal negative thus far --- Mycobacterial without AFB, pending - Send RF, anti-CCP, MARISSA, C3/C4, ANCA, T spot, HepB/C serologies, hypercoagulation panel Tx - Appreciate Derm recs, signed off --- Wound care: daily cleaning with wound cleanser or NS, followed by Vaseline, non-adherent dressing, wrap in Kerlix; Advise Inpatient Wound Service to follow however would recommend against debridement until pathology confirms diagnosis --- No additional therapies recommended at this time pending biopsy data - Consult to Rheumatology pending biopsy data - Appreciate Inpatient Wound consult - Appreciate Chronic Pain consult - Pain control: --- Tylenol 975 mg TID --- Dilaudid PO 2-4mg Q6H PRN mod-severe pain --- Morphine 8mg IV Q4H PRN breakthrough pain --- Start ketorlac 15g Q6H PRN moderate pain, multi-modal analgesia (x48 hours) --- Would avoid additional escalation of opioids if possible until confirming outpatient prescriber, will reach out to PCP Thursday - IAC request placed to obtain prior path report from [facility], attempt 04/23 to contact [facility] unsuccessful - Once pain regimen established, will need to touch base with PCP to take on pain prescription. Review of [facility] shows scripts from hospital recently, prior suboxone prescriptions, no clear chronic opioid prescriber Assessment & Plan (04/23/2024 3:51 PM EST): # 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 Review of [facility] records reveals that patient sustained an injury to R calf (reportedly scraped by metal) and area was subsequently erythematous and tender. In the Spring, the wound was initially thought to be an infected diabetic ulcer (10/10/23). She was subsequently admitted to [facility] multiple times (11/01-11/04, 11/14-11/15, 12/29- 01/04), for ?recurrent infection and has received many rounds of antibiotics without improvement. She also has had ongoing wound care with debridement without improvement (follows with wound care clinic in [place], [place]). During 12/29-01/04 admission, patient was followed by Vascular Surgery and ID, and had biopsy performed of the wound with concern for PG vs. malignancy. She was discharged on IV Zosyn to be continued through 01/13. 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 She was referred to Dermatology for continued management. Since this diagnosis, she has had several additional presentations with ongoing pain as the chief complaint, with intermittent antibiosis (02/12 - left AMA, 02/27, 03/21- 03/29, 03/30, 04/09-04/12, 04/19-04/21). It appears patient was seen by [facility] D[facility] between 03/29 and 03/30, at which time she was started on clobetasol topical and minocycline for PG. She bounced back after Dermatology follow up to the ED due to uncontrolled pain after dressing was changed on 03/30, as above. Appears to have had a nerve block for pain at [facility] 04/20. Notably has not had evidence of osteo on CT scan reports (most recently 04/09), has had many since initial presentation in September. This admission, she was seen by Dermatology who on initial assessment felt that wound appeared more consistent with diabetic ulcer vs atypical infection vs lymphoma. Punch biopsy was performed 04/22. While the tissue surrounding her wound is erythematous it is not hot to the touch, no appreciated areas of fluctuance or active purulent drainage. She received 1x doses of vancomycin and cefepime in the ED for wound/soft tissue infection, however these were discontinued with plan to monitor off of antibiotics. Pain remains an issue and is the driving factor that lead to her presentation in our ED the same day as her discharge from [facility]. Risk factors for poor/impaired healing include poorly controlled DM and tobacco use. Reviewed wound images with Dermatology 04/23, who felt wound appears to be healing, albeit slowly. Notably, patient reports that she felt wound was worsening with clobetasol, however unclear how long this treatment was tried for given multiple hospital presentations since Dermatology appointment. Dx: - Follow up punch biopsy pathology - Follow up cultures --- Tissue culture/smear with rare pinpoint colonies to be identified --- Fungal negative thus far --- Mycobacterial without AFB, pending Tx: - Appreciate Derm recs, signed off --- As of 04/23, recommending daily care with wound cleanser or NS, Vaseline, non-adherent dressing, wrap in Kerlix; Advise Inpatient Wound Service to follow however would recommend against debridement until pathology confirms diagnosis --- No additional therapies recommended at this time pending biopsy data - Appreciate Inpatient Wound consult - Pain control: --- Tylenol 975 mg TID --- Dilaudid PO 2-4mg Q6H PRN mod-severe pain --- Morphine 8mg IV Q4H PRN breakthrough pain --- Start ketorlac 15g Q6H PRN moderate pain, multi-modal analgesia (x48 hours) --- Would avoid additional escalation of opioids if possible until confirming outpatient prescriber, will reach out to PCP Thursday - IAC request placed to obtain prior path report from [facility], attempt 04/23 to contact [facility] unsuccessful - Once pain regimen established, will need to touch base with PCP to take on pain prescription. Review of [facility] shows scripts from hospital recently, prior suboxone prescriptions, no clear chronic opioid prescriber Assessment & Plan (04/22/2024 2:14 PM EST): #c/f pyoderma gangrenosum vs chronic diabetic ulcer Wound has been present since at least 12/2023, per report from patient initial wound related to injury from a nail. Has been admitted to [facility] multiple times for pain related to this wound. Notes from [facility] mention punch biopsy path from 12/2023 consistent with pyoderma gangrenosum. However, biopsy results not visible in care everywhere and derm here felt on initial assessment that wound appeared more consistent with diabetic ulcer vs atypical infection vs lymphoma. While the tissue surrounding her wound is erythematous it is not hot to the touch, no appreciated areas of fluctuance or active purulent drainage. She received 1x doses of vancomycin and cefepime in the ED for wound/soft tissue infection but will opt to stop these for now and monitor. Pain remains an issue and is the driving factor that lead to her presentation in our ED the same day as her discharge from [facility]. -appreciate derm recs -f/u punch biopsy path, culture -f/u wound culture, mycobacterial culture/smear -pain control: acetaminophen TID, dilaudid PO 2-4mg Q6:PRN mod-severe pain, morphine 8mg IV Q4:PRN breakthrough pain -IAC request placed to obtain prior path report from [facility] -Once pain regimen established will need to touch base with PCP to take on pain prescription. Review of [facility] shows showscripts from hospital recently, prior suboxone prescriptions, no clear chronic opioid prescriber Type 2 diabetes mellitus wit h hyperglycemia, with long-term current use of insulin 04/22/2024 Assessment & Plan (05/12/2024 1:43 PM EST): Last A1c 10.6 in September 2023. A1c 9.4 here. LDL 103. ASCVD risk borderline 6.0%. Blood sugars have been consistently elevated, so uptitrated Lantus. Elevated POC glucose to the 300s iso NPO for surgery, halved Lantus at night prior to procedure, and s/p dexamethasone inj. No need to titrate insulin, was well-controlled prior to procedure. - Continue atorvastatin 20 mg nightly - Increased Lantus to 16u QHS - MISS - Hold home metformin, glipizide, pioglitazone while admitted (consider discontinuing pioglitazone at discharge given concurrent obesity and black box warning) # Hx of OUD Denies active substance use; states last used heroin ~1 years ago. Previously on Suboxone, per review of chart appears patient has reported her outpatient prescriber would not prescribe short-acting opiates while she was on Suboxone so this was discontinued. Utox this admission + for opiates and BZD, which is to be expected given ongoing opioid pain medication and recent Ativan at OSH. ACT now signed off; initially agreeable to induction of buprenorphine while admitted, but prefer now to started this once she completes her dilaudid taper. [facility] records in media with prior suboxone dosing, and pt plans to re-engage with them after discharge. - Continue home multivitamin - Pain Management after surgery: - Continue to reduce morphine IV use for upcoming discharge - switched to 4 mg IV Q8h PRN day 2, then 4mg IV Q12h PRN, then off. - Upon discharge, taper of oral hydromorphone: - Week 1, Dilaudid 6 mg PO Q6hr PRN - Week 2, Dilaudid 6 mg PO Q8h PRN - Week 3, Dilaudid 4 mg PO Q6h PRN - Week 4, Dilaudid 4 mg PO Q8h PRN - Week 5, Dilaudid 2 mg PO Q8h PRN - Week 6, Dilaudid 2 mg PO Q12h PRN - This provider spoke with outpt PCP office, and has visit scheduled to continue dilaudid taper on 05/17 @ 2pm - Patient now declining initiation of belbuca; and would instead prefer to restart buprenorphine once dilaudid taper is done - [facility] in [place]; will need new patient intake given she was lost to follow-up - Currently now on dilaudid po for pain control. Assessment & Plan (05/11/2024 2:44 PM EST): Last A1c 10.6 in September 2023. A1c 9.4 here. LDL 103. ASCVD risk borderline 6.0%. Blood sugars have been consistently elevated, so uptitrated Lantus. Elevated POC glucose to the 300s iso NPO for surgery, halved Lantus at night prior to procedure, and s/p dexamethasone inj. No need to titrate insulin, was well-controlled prior to procedure. - Continue atorvastatin 20 mg nightly - Increased Lantus to 16u QHS - MISS - Hold home metformin, glipizide, pioglitazone while admitted (consider discontinuing pioglitazone at discharge given concurrent obesity and black box warning) # Hx of OUD Denies active substance use; states last used heroin ~1 years ago. Previously on Suboxone, per review of chart appears patient has reported her outpatient prescriber would not prescribe short-acting opiates while she was on Suboxone so this was discontinued. Utox this admission + for opiates and BZD, which is to be expected given ongoing opioid pain medication and recent Ativan at OSH. ACT now signed off; initially agreeable to induction of buprenorphine while admitted, but prefer now to started this once she completes her dilaudid taper. [facility] records in media with prior suboxone dosing, and pt plans to re-engage with them after discharge. - Continue home multivitamin - Pain Management after surgery: - Continue to reduce morphine IV use for upcoming discharge - switched to 4 mg IV Q8h PRN day 2, then 4mg IV Q12h PRN, then off. - Upon discharge, taper of oral hydromorphone: - Week 1, Dilaudid 6 mg PO Q6hr PRN - Week 2, Dilaudid 6 mg PO Q8h PRN - Week 3, Dilaudid 4 mg PO Q6h PRN - Week 4, Dilaudid 4 mg PO Q8h PRN - Week 5, Dilaudid 2 mg PO Q8h PRN - Week 6, Dilaudid 2 mg PO Q12h PRN - This provider spoke with outpt PCP office, and has visit scheduled to continue dilaudid taper on 05/17 @ 2pm - Patient now declining initiation of belbuca; and would instead prefer to restart buprenorphine once dilaudid taper is done - [facility] in [place]; will need new patient intake given she was lost to follow-up Assessment & Plan (05/10/2024 5:19 PM EST): Last A1c 10.6 in September 2023. A1c 9.4 here. LDL 103. ASCVD risk borderline 6.0%. Blood sugars have been consistently elevated, so uptitrated Lantus. Elevated POC glucose to the 300s iso NPO for surgery, halved Lantus at night prior to procedure, and s/p dexamethasone inj. No need to titrate insulin, was well-controlled prior to procedure. - Continue atorvastatin 20 mg nightly - Increased Lantus to 16u QHS - MISS - Hold home metformin, glipizide, pioglitazone while admitted (consider discontinuing pioglitazone at discharge given concurrent obesity and black box warning) Assessment & Plan (05/09/2024 9:25 AM EST): Last A1c 10.6 in September 2023. A1c 9.4 here. LDL 103. ASCVD risk borderline 6.0%. Blood sugars have been consistently elevated, so uptitrated Lantus. - Continue atorvastatin 20 mg nightly - Increased Lantus to 16u QHS - MISS - Hold home metformin, glipizide, pioglitazone while admitted (consider discontinuing pioglitazone at discharge given concurrent obesity) Assessment & Plan (05/08/2024 2:21 PM EST): Last A1c 10.6 in September 2023. A1c 9.4 here. LDL 103. ASCVD risk borderline 6.0%. Blood sugars have been consistently elevated, so uptitrated Lantus. - Continue atorvastatin 20 mg nightly - Increased Lantus to 16u QHS - MISS - Hold home metformin, glipizide, pioglitazone while admitted (consider discontinuing pioglitazone at discharge given concurrent obesity) Assessment & Plan (05/07/2024 3:39 PM EST): Last A1c 10.6 in September 2023. A1c 9.4 here. LDL 103. ASCVD risk borderline 6.0%. Blood sugars have been consistently elevated, so uptitrated Lantus. - Continue atorvastatin 20 mg nightly - Increased Lantus to 16u QHS - MISS - Hold home metformin, glipizide, pioglitazone while admitted (consider discontinuing pioglitazone at discharge given concurrent obesity) Assessment & Plan (05/06/2024 10:20 AM EST): Last A1c 10.6 in September 2023. A1c 9.4 here. LDL 103. ASCVD risk borderline 6.0%. Blood sugars have been consistently elevated, so uptitrated Lantus. - Continue atorvastatin 20 mg nightly - Increased Lantus to 16u QHS - MISS - Hold home metformin, glipizide, pioglitazone while admitted (consider discontinuing pioglitazone at discharge given concurrent obesity) Assessment & Plan (05/05/2024 12:13 PM EST): Last A1c 10.6 in September 2023. A1c 9.4 here. LDL 103. ASCVD risk borderline 6.0%. Blood sugars have been consistently elevated, so uptitrated Lantus. - Continue atorvastatin 20 mg nightly - Increased Lantus to 16u QHS - MISS - Hold home metformin, glipizide, pioglitazone while admitted (consider discontinuing pioglitazone at discharge given concurrent obesity) Assessment & Plan (05/04/2024 1:43 PM EST): Last A1c appears to be 10.6 in September 2023. A1c is 9.4 this admission (04/24), LDL 103. Patient's ASCVD risk is borderline at 6.0%. Blood sugars have been consistently elevated, so will uptitrate Lantus. - Continue atorvastatin 20 mg nightly (04/25) - Increase Lantus to 16u QHS - Moderate dose MIRNA w/ meals - Hold home metformin, glipizide, pioglitazone while admitted (consider discontinuing pioglitazone at discharge given concurrent obesity) Assessment & Plan (05/03/2024 4:54 PM EST): Last A1c appears to be 10.6 in September 2023. A1c is 9.4 this admission (04/24), LDL 103. Patient's ASCVD risk is borderline at 6.0%. - Continue atorvastatin 20 mg nightly (04/25) - Continue home Lantus 10u QHS - Moderate dose MIRNA w/ meals - Hold home metformin, glipizide, pioglitazone while admitted (consider discontinuing pioglitazone at discharge given concurrent obesity) Assessment & Plan (05/02/2024 12:09 PM EST): Last A1c appears to be 10.6 in September 2023. A1c is 9.4 this admission (04/24), LDL 103. Patient's ASCVD risk is borderline at 6.0%. Per guidelines, would benefit from lifestyle modification, statin initiation, and smoking cessation. - Continue moderate intensity atorvastatin 20 mg nightly (04/25) - Encourage lifestyle modifications, including lowering sugar intake and smoking cessation (as noted elsewhere) - POCT glucose four times daily at meals and bedtime - Continue home Lantus 10u QHS - Moderate dose MIRNA w/ meals - Hold home metformin, glipizide, pioglitazone while admitted (consider discontinuing pioglitazone at discharge given concurrent obesity) Assessment & Plan (05/01/2024 2:25 PM EST): Last A1c appears to be 10.6 in September 2023. A1c is 9.4 this admission (04/24), LDL 103. Patient's ASCVD risk is borderline at 6.0%. Per guidelines, would benefit from lifestyle modification, statin initiation, and smoking cessation. - Continue moderate intensity atorvastatin 20 mg nightly (04/25) - Encourage lifestyle modifications, including lowering sugar intake and smoking cessation (as noted elsewhere) - POCT glucose four times daily at meals and bedtime - Continue home Lantus 10u QHS - Moderate dose MIRNA w/ meals - Hold home metformin, glipizide, pioglitazone while admitted (consider discontinuing pioglitazone at discharge given concurrent obesity) Assessment & Plan (04/30/2024 2:19 PM EST): Last A1c appears to be 10.6 in September 2023. A1c is 9.4 this admission (04/24), LDL 103. Patient's ASCVD risk is borderline at 6.0%. Per guidelines, would benefit from lifestyle modification, statin initiation, and smoking cessation. - Continue moderate intensity atorvastatin 20 mg nightly (04/25) - Encourage lifestyle modifications, including lowering sugar intake and smoking cessation (as noted elsewhere) - POCT glucose four times daily at meals and bedtime - Continue home Lantus 10u QHS - Moderate dose MIRNA w/ meals - Hold home metformin, glipizide, pioglitazone while admitted (consider discontinuing pioglitazone at discharge given concurrent obesity) Assessment & Plan (04/29/2024 11:52 AM EST): Last A1c appears to be 10.6 in September 2023. A1c is 9.4 this admission (04/24), LDL 103. Patient's ASCVD risk is borderline at 6.0%. Per guidelines, would benefit from lifestyle modification, statin initiation, and smoking cessation. - Continue moderate intensity atorvastatin 20 mg nightly (04/25) - Encourage lifestyle modifications, including lowering sugar intake and smoking cessation (as noted elsewhere) - POCT glucose four times daily at meals and bedtime - Continue home Lantus 10u QHS - Moderate dose MIRNA w/ meals - Hold home metformin, glipizide, pioglitazone while admitted (consider discontinuing pioglitazone at discharge given concurrent obesity) Assessment & Plan (04/28/2024 11:27 AM EST): Last A1c appears to be 10.6 in September 2023. A1c is 9.4 this admission (04/24), LDL 103. Patient's ASCVD risk is borderline at 6.0%. Per guidelines, would benefit from lifestyle modification, statin initiation, and smoking cessation. - Start moderate intensity atorvastatin 20 mg nightly (04/25) - Encourage lifestyle modifications, including lowering sugar intake and smoking cessation (as noted elsewhere) - POCT glucose four times daily at meals and bedtime - Continue home Lantus 10u QHS - Moderate dose MIRNA w/ meals - Hold home metformin, glipizide, pioglitazone while admitted (consider discontinuing pioglitazone at discharge given concurrent obesity) Assessment & Plan (04/27/2024 11:18 AM EST): Last A1c appears to be 10.6 in September 2023. A1c is 9.4 this admission (04/24), LDL 103. Patient's ASCVD risk is borderline at 6.0%. Per guidelines, would benefit from lifestyle modification, statin initiation, and smoking cessation. - Start moderate intensity atorvastatin 20 mg nightly (04/25) - Encourage lifestyle modifications, including lowering sugar intake and smoking cessation (as noted elsewhere) - POCT glucose four times daily at meals and bedtime - Continue home Lantus 10u QHS - Moderate dose MIRNA w/ meals - Hold home metformin, glipizide, pioglitazone while admitted (consider discontinuing pioglitazone at discharge given concurrent obesity) Assessment & Plan (04/26/2024 12:34 PM EST): Last A1c appears to be 10.6 in September 2023. A1c is 9.4 this admission (04/24), LDL 103. Patient's ASCVD risk is borderline at 6.0%. Per guidelines, would benefit from lifestyle modification, statin initiation, and smoking cessation. - Start moderate intensity atorvastatin 20 mg nightly (04/25) - Encourage lifestyle modifications, including lowering sugar intake and smoking cessation (as noted elsewhere) - POCT glucose four times daily at meals and bedtime - Continue home Lantus 10u QHS - Moderate dose MIRNA w/ meals - Hold home metformin, glipizide, pioglitazone while admitted (consider discontinuing pioglitazone at discharge given concurrent obesity) Assessment & Plan (04/25/2024 1:12 PM EST): Last A1c appears to be 10.6 in September 2023. A1c is 9.4 this admission (04/24), LDL 103. Patient's ASCVD risk is borderline at 6.0%. Per guidelines, would benefit from lifestyle modification, statin initiation, and smoking cessation. - Start moderate intensity atorvastatin 20 mg nightly - Encourage lifestyle modifications, including lowering sugar intake and smoking cessation (as noted elsewhere) - Continue home Lantus 10u QHS - Moderate dose MIRNA w/ meals, consider deescalating to LDISS pending glucose trends - Hold home metformin, glipizide, pioglitazone while admitted (consider discontinuing pioglitazone at discharge given concurrent obesity) Assessment & Plan (04/24/2024 2:23 PM EST): Last A1c appears to be 10.6 in September 2023. A1c is 9.4 this admission (04/24), LDL 103. Patient's ASCVD risk is borderline at 6.0%. Per guidelines, would benefit from lifestyle modification, statin initiation, and smoking cessation. - Discuss statin initiation with patient - Encourage lifestyle modifications, including lowering sugar intake and smoking cessation (as noted elsewhere) - Continue home Lantus 10u QHS - Moderate dose MIRNA w/ meals, consider deescalating to LDISS pending glucose trends - Hold home metformin, glipizide, pioglitazone while admitted (consider discontinuing pioglitazone at discharge given concurrent obesity) Assessment & Plan (04/23/2024 3:34 PM EST): Last A1c appears to be 10.6 in September 2023. - Check A1c, lipid panel - Continue home Lantus 10u QHS - Moderate dose MIRNA w/ meals, consider deescalating to LDISS pending glucose trends - Hold home metformin, glipizide, pioglitazone while admitted Assessment & Plan (04/22/2024 2:14 PM EST): -Continue home lantus 10u QHS -hold home metformin, glipizide, pioglitazone while admitted -moderate dose MIRNA w/ meals Leukocytosis 04/22/2024 Assessment & Plan (05/12/2024 1:43 PM EST): Chart review show more of a chronic leukocytosis. Limited ability to review labs shows WBC range from 12-18. WBC 17.7 on presentation here but without systemic symptoms of infection. Antibiotic course as elsewhere. Diff relatively unremarkable with increased PMNs and monocytes with few immature granulocytes seen. Suspect this is secondary to inflammatory state rather than infection. WBC increased from 13 ->26 on 04/30, afebrile and no S&S of other source of infx. Empirically restarted on IV abx for potential RLE infection as above and WBC down trending. Consider elevated leukocytosis iso inflammatory response to wound debridement. - Trend WBC - IV abx as elsewhere will be discharged off antibiotics with follow up with plastics, last day 05/13. Assessment & Plan (05/11/2024 2:44 PM EST): Chart review show more of a chronic leukocytosis. Limited ability to review labs shows WBC range from 12-18. WBC 17.7 on presentation here but without systemic symptoms of infection. Antibiotic course as elsewhere. Diff relatively unremarkable with increased PMNs and monocytes with few immature granulocytes seen. Suspect this is secondary to inflammatory state rather than infection. WBC increased from 13 ->26 on 04/30, afebrile and no S&S of other source of infx. Empirically restarted on IV abx for potential RLE infection as above and WBC down trending. Consider elevated leukocytosis iso inflammatory response to wound debridement. - Trend WBC - IV abx as elsewhere Assessment & Plan (05/10/2024 5:19 PM EST): Chart review of [facility] records reveals chronic leukocytosis as known issue. Limited ability to review labs shows WBC range from 12-18. WBC 17.7 on presentation here but without systemic symptoms of infection. Antibiotic course as elsewhere. Diff relatively unremarkable with increased PMNs and monocytes with few immature granulocytes seen. Suspect this is secondary to inflammatory state rather than infection. WBC increased from 13 ->26 on 04/30, afebrile and no S&S of other source of infx. Empirically restarted on IV abx for potential RLE infection as above and WBC down trending. Consider elevated leukocytosis iso inflammatory response to wound debridement. - Trend WBC - IV abx as elsewhere Assessment & Plan (05/09/2024 4:04 PM EST): Chart review of [facility] records reveals chronic leukocytosis as known issue. Limited ability to review labs shows WBC range from 12-18. WBC 17.7 on presentation here but without systemic symptoms of infection. Antibiotic course as elsewhere. Diff relatively unremarkable with increased PMNs and monocytes with few immature granulocytes seen. Suspect this is secondary to inflammatory state rather than infection. WBC increased from 13 ->26 on 04/30, afebrile and no S&S of other source of infx. Empirically restarted on IV abx for potential RLE infection as above and WBC down trending. Consider elevated leukocytosis iso inflammatory response to wound debridement. - Trend WBC - IV abx as elsewhere Assessment & Plan (05/08/2024 2:21 PM EST): Chart review of [facility] records reveals chronic leukocytosis as known issue. Limited ability to review labs shows WBC range from 12-18. WBC 17.7 on presentation here but without systemic symptoms of infection. Antibiotic course as elsewhere. Diff relatively unremarkable with increased PMNs and monocytes with few immature granulocytes seen. Suspect this is secondary to inflammatory state rather than infection. WBC increased from 13 ->26 on 04/30, afebrile and no S&S of other source of infx. Empirically restarted on IV abx for potential RLE infection as above and WBC down trending. Consider elevated leukocytosis iso inflammatory response to wound debridement. - Trend WBC - IV abx as elsewhere Assessment & Plan (05/07/2024 3:39 PM EST): Chart review of [facility] records reveals chronic leukocytosis as known issue. Limited ability to review labs shows WBC range from 12-18. WBC 17.7 on presentation here but without systemic symptoms of infection. Antibiotic course as elsewhere. Diff relatively unremarkable with increased PMNs and monocytes with few immature granulocytes seen. Suspect this is secondary to inflammatory state rather than infection. WBC increased from 13 ->26 on 04/30, afebrile and no S&S of other source of infx. Empirically restarted on IV abx for potential RLE infection as above and WBC down trending. Consider elevated leukocytosis iso inflammatory response to wound debridement. - Trend WBC - IV abx as elsewhere Assessment & Plan (05/06/2024 10:20 AM EST): Chart review of [facility] records reveals chronic leukocytosis as known issue. Limited ability to review labs shows WBC range from 12-18. WBC 17.7 on presentation here but without systemic symptoms of infection. Antibiotic course as elsewhere. Diff relatively unremarkable with increased PMNs and monocytes with few immature granulocytes seen. Suspect this is secondary to inflammatory state rather than infection. WBC increased from 13 ->26 on 04/30, afebrile and no S&S of other source of infx. Empirically restarted on IV abx for potential RLE infection as above, though could also be in inflammatory response to the wound debridement - UCx +enterococcus, covered by wound abx - SPEP 04/24 normal - Trend WBC - IV abx as elsewhere Assessment & Plan (05/05/2024 12:13 PM EST): Chart review of [facility] records reveals chronic leukocytosis as known issue. Limited ability to review labs shows WBC range from 12-18. WBC 17.7 on presentation here but without systemic symptoms of infection. Antibiotic course as elsewhere. Diff relatively unremarkable with increased PMNs and monocytes with few immature granulocytes seen. Suspect this is secondary to inflammatory state rather than infection. WBC increased from 13 ->26 on 04/30, afebrile and no S&S of other source of infx. Empirically restarted on IV abx for potential RLE infection as above, though could also be in inflammatory response to the wound debridement - SPEP 04/24 normal - Trend WBC - IV abx as elsewhere Assessment & Plan (05/04/2024 1:43 PM EST): Chart review of [facility] records reveals chronic leukocytosis as known issue. Limited ability to review labs shows WBC range from 12-18. WBC 17.7 on presentation here but without systemic symptoms of infection. Received vancomycin/cefepime in the ED but as above, will hold antibiotics for now in absence of clear evidence of infection. Diff relatively unremarkable with increased PMNs and monocytes with few immature granulocytes seen. Suspect this is secondary to inflammatory state rather than infection, however will continue to trend. SPEP (04/24) was normal. WBC increased from 13 ->26 on 04/30, afebrile and no S&S of other source of infx.Empirically started on IV abx for potential RLE infection though leukocytosis could also be in inflammatory response to the wound debridement, will continue until next wound procedure 05/03 as mention elsewhere. Reassuringly WBC is stable ~15k. - Trend WBC - IV abx as elsewhere Assessment & Plan (05/03/2024 4:54 PM EST): Chart review of [facility] records reveals chronic leukocytosis as known issue. Limited ability to review labs shows WBC range from 12-18. WBC 17.7 on presentation here but without systemic symptoms of infection. Received vancomycin/cefepime in the ED but as above, will hold antibiotics for now in absence of clear evidence of infection. Diff relatively unremarkable with increased PMNs and monocytes with few immature granulocytes seen. Suspect this is secondary to inflammatory state rather than infection, however will continue to trend. SPEP (04/24) was normal. WBC increased from 13 ->26 on 04/30, afebrile and no S&S of other source of infx.Empirically started on IV abx for potential RLE infection though leukocytosis could also be in inflammatory response to the wound debridement, will continue until next wound procedure 05/03 as mention elsewhere. Reassuringly WBC is now down trending to 13.90(05/02). - Trend WBC - IV abx as elsewhere Assessment & Plan (05/02/2024 2:18 PM EST): Chart review of [facility] records reveals chronic leukocytosis as known issue. Limited ability to review labs shows WBC range from 12-18. WBC 17.7 on presentation here but without systemic symptoms of infection. Received vancomycin/cefepime in the ED but as above, will hold antibiotics for now in absence of clear evidence of infection. Diff relatively unremarkable with increased PMNs and monocytes with few immature granulocytes seen. Suspect this is secondary to inflammatory state rather than infection, however will continue to trend. SPEP (04/24) was normal. WBC increased from 13 ->26 on 04/30, afebrile and no S&S of other source of infx.Empirically started on IV abx for potential RLE infection though leukocytosis could also be in inflammatory response to the wound debridement, will continue until next wound procedure 05/03 as mention elsewhere. Reassuringly WBC is now down trending to 13.90(05/02). - Trend WBC - Continue IV vanc and IV Cefepime, can deescalate pending re-eval of wound in OR Assessment & Plan (05/01/2024 2:09 PM EST): Chart review of [facility] records reveals chronic leukocytosis as known issue. Limited ability to review labs shows WBC range from 12-18. WBC 17.7 on presentation here but without systemic symptoms of infection. Received vancomycin/cefepime in the ED but as above, will hold antibiotics for now in absence of clear evidence of infection. Diff relatively unremarkable with increased PMNs and monocytes with few immature granulocytes seen. Suspect this is secondary to inflammatory state rather than infection, however will continue to trend. SPEP (04/24) was normal. WBC increased from 13 ->26 on 04/30, afebrile and no S&S of other source of infx.Empirically started on IV abx for potential RLE infection though leukocytosis could also be in inflammatory response to the wound debridement, will continue until next wound procedure 05/03 as mention elsewhere. - Trend WBC - Continue IV vanc and IV Cefepime Assessment & Plan (04/30/2024 2:19 PM EST): Chart review of [facility] records reveals chronic leukocytosis as known issue. Limited ability to review labs shows WBC range from 12-18. WBC 17.7 on presentation here but without systemic symptoms of infection. Received vancomycin/cefepime in the ED but as above, will hold antibiotics for now in absence of clear evidence of infection. Diff relatively unremarkable with increased PMNs and monocytes with few immature granulocytes seen. Suspect this is secondary to inflammatory state rather than infection, however will continue to trend. SPEP (04/24) was normal. WBC increased from 13 ->26 on 04/30, afebrile (though on standing tylenol) and no other symptoms concerning for infection including SOB, dysuria. Wound cx from 04/28 growing ecoli, klebsiella, proteus, corynebacterium and morganella, will send blood cx and urine cx to rule out other infection. Will empirically start on IV CTX and IV vanc for potential RLE infection though leukocytosis could also be in inflammatory response to the wound debridement. - Trend WBC - Continue IV vanc and IV CTX (04/30) - F/u blood cx and urine cx (04/30) Assessment & Plan (04/29/2024 11:52 AM EST): Chart review of [facility] records reveals chronic leukocytosis as known issue. Limited ability to review labs shows WBC range from 12-18. WBC 17.7 on presentation here but without systemic symptoms of infection. Received vancomycin/cefepime in the ED but as above, will hold antibiotics for now in absence of clear evidence of infection. Diff relatively unremarkable with increased PMNs and monocytes with few immature granulocytes seen. Suspect this is secondary to inflammatory state rather than infection, however will continue to trend. SPEP (04/24) was normal. - Trend WBC Assessment & Plan (04/28/2024 11:27 AM EST): Chart review of [facility] records reveals chronic leukocytosis as known issue. Limited ability to review labs shows WBC range from 12-18. WBC 17.7 on presentation here but without systemic symptoms of infection. Received vancomycin/cefepime in the ED but as above, will hold antibiotics for now in absence of clear evidence of infection. Diff relatively unremarkable with increased PMNs and monocytes with few immature granulocytes seen. Suspect this is secondary to inflammatory state rather than infection, however will continue to trend. SPEP (04/24) was normal. - Trend WBC Assessment & Plan (04/27/2024 11:18 AM EST): Chart review of [facility] records reveals chronic leukocytosis as known issue. Limited ability to review labs shows WBC range from 12-18. WBC 17.7 on presentation here but without systemic symptoms of infection. Received vancomycin/cefepime in the ED but as above, will hold antibiotics for now in absence of clear evidence of infection. Diff relatively unremarkable with increased PMNs and monocytes with few immature granulocytes seen. Suspect this is secondary to inflammatory state rather than infection, however will continue to trend. SPEP (04/24) was normal. - Trend WBC Assessment & Plan (04/26/2024 12:34 PM EST): Chart review of [facility] records reveals chronic leukocytosis as known issue. Limited ability to review labs shows WBC range from 12-18. WBC 17.7 on presentation here but without systemic symptoms of infection. Received vancomycin/cefepime in the ED but as above, will hold antibiotics for now in absence of clear evidence of infection. Diff relatively unremarkable with increased PMNs and monocytes with few immature granulocytes seen. Suspect this is secondary to inflammatory state rather than infection, however will continue to trend. SPEP (04/24) was normal. - Trend WBC Assessment & Plan (04/25/2024 1:12 PM EST): Chart review of [facility] records reveals chronic leukocytosis as known issue. Limited ability to review labs shows WBC range from 12-18. WBC 17.7 on presentation here but without systemic symptoms of infection. Received vancomycin/cefepime in the ED but as above, will hold antibiotics for now in absence of clear evidence of infection. Diff relatively unremarkable with increased PMNs and monocytes with few immature granulocytes seen. Suspect this is secondary to inflammatory state rather than infection, however will continue to trend. - Trend WBC - F/u SPEP and FLC, in process Assessment & Plan (04/24/2024 2:23 PM EST): Chart review of [facility] records reveals chronic leukocytosis as known issue. Limited ability to review labs shows WBC range from 12-18. WBC 17.7 on presentation here but without systemic symptoms of infection. Received vancomycin/cefepime in the ED but as above, will hold antibiotics for now in absence of clear evidence of infection. Diff relatively unremarkable with increased PMNs and monocytes with few immature granulocytes seen. Suspect this is secondary to inflammatory state rather than infection, however will continue to trend. - Trend WBC - F/u SPEP and FLC Assessment & Plan (04/23/2024 3:34 PM EST): Chart review of [facility] records reveals chronic leukocytosis as known issue for patients. Limited ability to review labs shows WBC range from 12-18. WBC 17.7 on presentation here but without systemic symptoms of infection. Received vancomycin/cefepime in the ED but as above, will hold antibiotics for now in absence of clear evidence of infection. Diff relatively unremarkable with increased PMNs and monocytes with few immature granulocytes seen. - Trend WBC - Check SPEP and FLC Assessment & Plan (04/22/2024 2:14 PM EST): Chart review of [facility] records reveals chronic leukocytosis as known issue for patients. Limited ability to review labs shows WBC range from 12-18. WBC 17.7 on presentation here but without systemic symptoms of infection. Received vancomycin/cefepime in the ED but as above, will hold antibiotics for now in absence of clear evidence of infection. Diff relatively unremarkable with increased PMNs and monocytes with few immature granulocytes seen. Encounters Date Type Department Care Team Description 01/17/2025 Refill [facility] [address], [address], [address] [place] [address] Kodi Rodrigez CNP Medication Refill 12/07/2024 Refill [facility] [address], [address] [place] [address] Kodi Rodrigez CNP Medication Refill from Last 3 Months Immunizations Immunization Administration Dates Next Due INFLUENZA, SPLIT VIRUS, TRIVALENT PF 05/13/2024( Deferred: Patient Refused) Social History Tobacco Use Types Packs/Day Years Used Date Smoking Tobacco: Every Day Cigarettes Tobacco Cessation:Ready to Q uit: Not Asked; Counseling Given: Not Answered Alcohol Use Standard Drinks/Week Comments Never 0 [...] is your housing situation today? I have [place] 04/22/2024 How many times have you move [...] Orientation Straight 04/22/2024 7: 00 AM EST Last Filed Vital Signs Vital Sign Reading Time Taken Comments Blood Pressure 127/86 05/13/2024 8:03 AM EST Pulse 78 05/13/2024 8:03 AM EST Temperature 36.8 C (98.2 F) 05/13/2024 8:03 AM EST Respiratory Rate 18 05/13/2024 8:03 AM EST Oxygen Saturation 95% 05/13/2024 4:13 AM EST Inhaled Oxygen Concentration - - Weight 127 kg (279 lb 15.8 oz) 05/03/2024 9:00 A M EST Height 157 cm (5' 1.81 ) 05/03/2024 9:00 AM EST Body Mass Index 51.52 05/03/2024 9:00 AM EST Plan of Treatment Health Maintenance Due Date Last Done Comments Adult Td,Tdap Booster 1981 BLOOD PRESSURE 1981 DEPRESSION SCREENING 1993 SMOKING Hx and SMOKELESS TOBACCO SCREENING 1994 HIV ONE-TIME SCREENING (18-65 YEARS) 12/15/1999 PNEUMOCOCCAL VACCINES (0-49 years) (1 of 2 - PCV) 2000 PAP SMEAR 2002 MAMMOGRAM 2021 DIABETIC EYE EXAM 04/22/2024 URINE MICROALBUMIN/CREATININE RATIO 04/22/2024 HEMOGLOBIN A1C 07/25/2024 04/24/2024 INFLUENZA VACCINE (#1) 2025 COVID-19 VACCINE ( season) 2025 CREATININE LEVEL 05/13/2025 05/13/2024, , 05/11/2024, Additional history exists HEPATITIS C SCREENING Completed 04/25/2024 HEPATITIS A VACCINES Aged Out No long er eligible based on patient's age to complete this topic HIB VACCINES Aged Out No longer eligi ble based on patient's age to complete this topic MENINGOCOCCAL VACCINES (ACWY) Aged Out No longer eligible based on patient's age to complete this topic MENINGOCOCCAL VACCINES (B) Aged Out N o longer eligible based on patient's age to complete this topic Medical Devices Implanted Type Area French Folder Device Identifier Shelf Expiration Date Model / Serial / Lot [employer] Omega3 Graftguide Fish Skin For Wound Management 7 X 20cm Implanted:Qty: 1 on 05/03/2024 by Sher Kelley MD at [facility] Right: Leg 2025 [id number] / / [id number] Procedures Procedure Name Priority Date/Time Associated Diagnosis Comments BASIC METABOLIC PANEL Routine 05/13/2024 4:20 AM EST HEPATITIS C ANTIBODY, QUALITATIVE Routine 04/25/2024 12:10 PM EST HEMOGLOBIN A1C Routine 04/24/2024 6:10 AM EST from Last 3 Months or Most Recently Relevant to Health Maintenance Results * (ABNORMAL) Basic metabolic panel (05/13/2024 4:20 AM EST) SODIUM 138 135 - 145 mmol/L [facility] POTASSIUM 4.1 3.4 - 5.0 mmol/L [facility] CHLORIDE 99 98 - 108 mmol/L [facility] CO2 26 23 - 32 mmol/L [facility] BUN 14 8 - 25 mg/dL [facility] CREATININE 0.73 0.50 - 1.00 mg/dL [facility] GLUCOSE 194(H) 70 - 110 mg/dL [facility] CALCIUM 9.4 8.5 - 10.5 mg/dL [facility] EGFR 105 >59 mL/min/1. 73m2 [facility] Comment:Estimated glomerular filtration rate calculated using the CKD-EPI refit equation. ANION GAP 13 3 - 17 mmol/L [facility] Blood 05/13/2024 4:20 AM EST 05/13/2024 5:21 AM EST us Zina Curran TILE DITCHER LAB BLOOD ORDERABLE S Final Result Performing Organization Address City/[facility]/ZIP Co de Phone Number [address] [address] * Hepatitis C antibody, qualitative (04/25/2024 12:10 PM EST) HCV ANTIBODY Negative Negative [facility] Comment:Antibodies to HCV no t detected. Does not exclude the possibility of exposure to HCV. Blood 04/25/2024 12:1 0 PM EST 04/25/2024 1:04 PM EST us Dominique Mendosa PA-C LAB BLOOD ORDERABLES Final Result Performing Organization Address City/[facility] Co de Phone Number [address] [address] * (ABNORMAL) Hemoglobin A1c (04/24/2024 6:10 AM EST) HEMOGLOBIN A1C 9.4(H) 4.3 - 5.6 % [facility] Comment:HbA1c levels 5.7-6.4 % represent pre-diabetes, indicating impaired glucose control and an increased risk of developing diabetes compared with lower HbA1c levels. The diagnostic HbA1c level for diabetes is 6.5% or greater. CALC MEAN BLD GLUC 223 mg/dL [facility] Comment:There is no establis hed normal range for the Calculated Mean Blood Glucose (CMBG), however a HbA1c of 5.6% (upper limit of normal) represents a CMBG of 114 mg/dL. The diagnostic hemoglobin A1c level for diabetes is greater than or equal to 6.5% which represents a CMBG greater than or equal to 140 mg/dL. Blood 04/24/2024 6:10 AM EST 04/24/2024 6:55 AM EST Dominique Mendosa PA-C LAB BLOOD ORDERABLES Final Result Performing Organization Address City/State/[facility] Co de Phone Number [address] [address] from Last 3 Months or Most Recently Relevant to Health Maintenance Additional Health Concerns Infection Onset Date Last Indicated MDR-GN 04/28/2024 04/28/2024 Insurance Advance Directives For more information, please contact: [phone] (9AM - 5PM [place]in/[place], Thursday-Thursday) * Full Code (Latest Code Status on File) Date Activated Date Inactivated Comments 04/22/2024 1:16 PM Question Answer Comments Code Status Confirmed With: Patient Care Teams Medical Appliance Maker Relationship Specialty Start Date End Date Christopher Ramires MD [address] [place] [address] PCP - General Family Medicine 04/25/24 Campbell Bird MD [address] [place] [address] [email or web address] Consulting Provider Addiction Medicine 05/11/24 Additional Source Comments The information contained in this document represents components of the legal health record. It is not the complete legal health record.[facility]
== END 2025-02-23 09:28 | disposition home or self-care (01) ==
LOC: HO.HMCFM 08:37
PROVIDERS: PCP Internal Medicine; Visit Provider Internal Medicine
DX: E11.65 Type 2 diabetes mellitus with hyperglycemia (principal); F31.70 Bipolar disorder, currently in remission, most recent episode unspecified; F11.11 Opioid abuse, in remission; Z79.4 Long term (current) use of insulin; E11.9 Type 2 diabetes mellitus without complications

== ENCOUNTER → 2025-02-23 08:37 | Outpatient (BNVA) | payer OTHER, SELFPAY | PROVIDERS: PCP Internal Medicine; Visit Provider Internal Medicine | DX: E11.65 Type 2 diabetes mellitus with hyperglycemia (principal); F31.70 Bipolar disorder, currently in remission, most recent episode unspecified; F11.11 Opioid abuse, in remission; Z79.4 Long term (current) use of insulin | CPT/HCPCS: 83036; 99212 ==